=== PATIENT | female | born 1945 | race Caucasian/White ===

== ENCOUNTER 2024-10-28 10:01 | Inpatient (IN) | payer MEDICARE, OTHER, SELFPAY ==
[2024-10-28] VITALS (106 sets, daily range): BP systolic 130–182; BP diastolic 64–117; PULSE 88–127; RESP 14–16; TEMP 36.5–38; O2SAT 72–100; BMI 31.3; BMI 33.4
--- NOTE | 2024-10-28 10:03 | ED_ITS ---
HPI HPI - General Adult General Chief complaint: Shortness of Breath/Dyspnea Stated complaint: SOB COPD Time Seen by Provider: 10/28/24 10:02 History of Present Illness HPI narrative: 79-year-old female presents to the emergency department for difficulty breathin g. For 3 days she has had shortness of breath and has been coughing up some yellow phlegm. She states she has not had a fever. She was placed on CPAP by the paramedics and given 2 aerosol treatments en route. Related Data Allergies Allergy/AdvReac Type Severity Reaction Status Date / Time No Known Drug Allergies Allergy Verified 10/28/24 10:03 Opioid HPI Opioid Management Most Recent Opioid Data: No Data to Display Review of Systems ROS Narrative A ten point review of systems is negative except as noted above. [facility] Medical History (Updated 10/28/24 @ 12:43 by Tristen Coles MD) Chronic obstructive pulmonary disease ?J44.9 - Chronic obstructive pulmonary disease, unspecified (ICD-10) Exam Narrative Exam Narrative: Nurses note and vital signs reviewed and patient is not hypoxic. General: The patient appears dyspneic. Skin: Warm, dry, no pallor noted. There is no rash noted. Head: Normocephalic, atraumatic Eye: Normal conjunctiva, no drainage Ears, Nose, Mouth, and Throat: oral mucosa is moist. Nares patent. Cardiovascular: Regular Rate and Rhythm Respiratory: Bilateral rhonchi present but good air movement is present as well Back: non-tender GI: Soft and nontender Musculoskeletal: The patient has no evidence of calf tenderness, no pitting edema, symmetrical pulses noted bilaterally Neurological: A&O, normal speech Psychiatric: Cooperative Constitutional Vital Signs, click to edit/add: Last Vital Signs Temp 97.7 F 10/28/24 10:00 Pulse 110 H 10/28/24 12:11 Resp 26 H 10/28/24 12:11 BP 130/80 10/28/24 12:11 Pulse Ox 72 L 10/28/24 12:11 O2 Del Method Nasal Cannula 10/28/24 10:00 O2 Flow Rate 4 10/28/24 10:00 Course Vital Signs Vital signs: Vital Signs Temperature 97.7 F 10/28/24 10:00 Pulse Rate 116 H 10/28/24 10:00 Respiratory Rate 28 H 10/28/24 10:00 Blood Pressure 182/89 H 10/28/24 10:00 Pulse Oximetry 77 L 10/28/24 10:00 Oxygen Delivery Method Nasal Cannula 10/28/24 10:00 Oxygen Delivery Flow Rate 4 10/28/24 10:00 Temperature 97.7 F 10/28/24 10:00 Pulse Rate 110 H 10/28/24 12:11 Respiratory Rate 26 H 10/28/24 12:11 Blood Pressure 130/80 10/28/24 12:11 Pulse Oximetry 72 L 10/28/24 12:11 Oxygen Delivery Method Nasal Cannula 10/28/24 10:00 Oxygen Delivery Flow Rate 4 10/28/24 10:00 Medical Decision Making MDM Narrative Medical decision making narrative: The patient presented with COPD exacerbation. She was given IV Solu-Medrol and multiple aerosol treatments and has been on BiPAP. We made an attempt to take her off of BiPAP but her O2 sats dropped and so she was put back on the BiPAP. Blood cultures were obtained and she was given IV antibiotics. Chest x-ray is also consistent with CHF but her BNP is not elevated. She was given IV Lasix and is being admitted to the ICU. Findings are discussed with the patient and her family. The patient and her family are both requesting no intubation but appeared to want everything else done for her. Differential Diagnosis Differential Diagnosis: Pneumonia, COVID, influenza, CHF, COPD exacerbation Lab Data Lab results reviewed: Yes I reviewed the patient's lab results Labs: Lab Results 10/28/24 10/28/24 Range/Units 10:10 10:18 WBC 13.0 H (4.0-11.0) 10^3/uL RBC 3.25 L (4.20-5.40) 10^6/uL Hgb 9.9 L (12.0-16.0) g/dL Hct 33.1 L (36.0-48.0) % MCV 101.8 H (81.0-99.0) fL MCH 30.5 (26.7-34.0) pg MCHC 29.9 (29.9-35.2) g/dL RDW 14.0 (11.0-15.0) % Plt Count 239 (150-450) 10^3/uL MPV 9.1 L (9.5-13.5) fL Seg Neuts % (Manual) 84.0 H (43.0-75.0) Lymphocytes % (Manual) 8.0 L (20.5-60.0) % Monocytes % (Manual) 8.0 (1.7-12.0) % Eosinophils % (Manual) 0.0 L (0.9-7.0) % Basophils % (Manual) 0.0 L (0.2-2.0) % Neutrophils # (Manual) 10.92 H (1.4-6.5) 10^3/uL Lymphocytes # (Manual) 1.04 L (1.20-3.80) 10^3/uL Monocytes # (Manual) 1.04 H (0.30-0.80) 10^3/uL Eosinophils # (Manual) 0.00 (0.00-0.70) 10^3/uL Basophils # (Manual) 0.00 (0.00-0.10) 10^3/uL Sodium 146 H (136-145) mmol/L Potassium 3.8 (3.5-5.1) mmol/L Chloride 100 (98-107) mmol/L Carbon Dioxide 44.6 H (21.0-32.0) mmol/L Anion Gap 5.2 BUN 20.0 H (7.0-18.0) mg/dL Creatinine 0.89 (0.55-1.02) mg/dL Est GFR ( Amer) >60 (>=60 mL/min/1.73m^2) Est GFR (Non-Af Amer) >60 (>=60 mL/min/1.73m^2) BUN/Creatinine Ratio 22.5 Glucose 132 H (74-106) mg/dL Calcium 9.4 (8.5-10.1) mg/dL Troponin I High Sens 27.3 (4.0-51.3) pg/mL NT-Pro-B Natriuret Pep 425.0 (<=1800.0) pg/mL Influenza Type A Ag Negative Influenza Type B Ag Negative SARS-CoV-2 Ag (CV2AG) Positive A (NEGATIVE) Imaging Data Chest x-ray: Radiologist's impression: ITS Impressions Chest X-Ray 10/28/24 10:03 IMPRESSION: Pulmonary vascular congestion/pulmonary edema. Consider congestive heart failure Electronically authenticated by: HESHAM HALE Date: 10/28/2024 10:25 ECG Data Attestation: I personally reviewed and interpreted this ECG as follows: (EKG on my interpretation shows sinus rhythm with PACs.) Critical Care Time Critical Care Time Critical Care Time: Yes Total Critical Care Time: 45 Attestation: Due to the high probability of sudden and clinically significant deterioration in the patient's condition he/she required the highest level of my preparedness to intervene urgently I provided critical care time including documentation time, medication orders and management, reevaluation, vital sign assessment, ordering and reviewing of lab tests, ordering and reviewing of x-ray studies, and admission orders. Aggregate critical care time is 45 minutes including only time during which I was engaged in work directly related to his/her care and did not include time spent treating other patients simultaneously. Discharge Plan Discharge Chief Complaint: Shortness of Breath/Dyspnea Clinical Impression: Acute exacerbation of chronic obstructive pulmonary disease, Congestive heart failure, COVID-19 Patient Disposition: Admitted As Inpatient Time of Disposition Decision: 12:42 Condition: Fair
--- NOTE | 2024-10-28 10:03 | XR_ITS ---
The [address] [address] Patient Name: SUZETTE GUSTAFSON MRN: [id number] date: 1945 Sex: F Assigned Patient Location: ED.MAIN Current Patient Location: ER Accession/Order Number: [id number] Exam Date: 10/28/2024 10:15 Report Date: 10/28/2024 10:25 At the request of: SHAHRZAD WATTS Procedure: XR chest 1V EXAMINATION: XR chest 1V HISTORY: SOB COMPARISON: No relevant comparison available. TECHNIQUE: AP portable FINDINGS: LUNGS: Mild patchy parenchymal infiltrates with a central and bibasilar predominance, left greater than right VASCULATURE: Moderately increased pulmonary vascularity PLEURA: No pneumothorax, effusion, or pleural thickening. CARDIAC: No cardiomegaly or cardiac silhouette abnormality. MEDIASTINUM: No visible mass or adenopathy. BONES: No fracture or visible bone lesion. OTHER: Negative. XR/XR chest 1V IMPRESSION: Pulmonary vascular congestion/pulmonary edema. Consider congestive heart failure Electronically authenticated by: HESHAM HALE Date: 10/28/2024 10:25
--- NOTE | 2024-10-28 10:03 | ECG_ITS ---
[facility] Test Date: 2024-10-28 Pat Name: Stefany Rivas Department: Room: - Gender: Female Soaker Hides: : 1945 Requested By: ROCHELLE BROOKE Order Number: [id number] Reading MD: EFRAÍN STEVENS Measurements Intervals [place] Rate: 111 P: 80 PA: 146 QRS: -38 QRSD: 94 T: 80 QT: 336 QTc: 402 Interpretive Statements 1120 Sinus tachycardia 1474 with frequent supraventricular premature complexes 7200 Abnormal left axis deviation 9140 abnormal rhythm ECG No previous ECG available for comparison Electronically Signed On 10-30-2024 8:17:49 EST by EFRAÍN STEVENS
[2024-10-28 10:30] LABS: Hematocrit 33.1 % (36.0-48.0); Hemoglobin 9.9 g/dL (12.0-16.0); Mean Corpuscular HGB Conc 29.9 g/dL (29.9-35.2); Mean Corpuscular Hemoglobin 30.5 pg (26.7-34.0); Mean Corpuscular Volume 101.8 fL (81.0-99.0); Mean Platelet Volume 9.1 fL (9.5-13.5); Platelet Count 239 10^3/uL (150-450); Red Blood Count 3.25 10^6/uL (4.20-5.40)
[2024-10-28 10:46] LABS: Influenza Virus A Antigen Negative; Influenza Virus B Antigen Negative; Internal Control Within Normal Limits; SARS-CoV-2 Ag POSITIVE (NEGATIVE)
[2024-10-28 11:05] LABS: Segmented Neut Absolute Manual 10.92 10^3/uL (1.4-6.5)
[2024-10-28 11:06] LABS: Lymphocytes Absolute Manual 1.04 10^3/uL (1.20-3.80); Monocytes Absolute Manual 1.04 10^3/uL (0.30-0.80)
[2024-10-28] MEDS: FUROSEMIDE 40 MG/4 ML VIAL IVP (11:14)
[2024-10-28 11:51] LABS: Anion Gap 5.2; BUN Creatinine Ratio 22.5; Calcium 9.4 mg/dL (8.5-10.1); Carbon Dioxide 44.6 mmol/L (21.0-32.0); Chloride 100 mmol/L (98-107); Estimated GFR (African America >60 (>=60 mL/min/1.73m^2); Estimated GFR (Non-African Ame >60 (>=60 mL/min/1.73m^2); Glucose 132 mg/dL (74-106); Potassium 3.8 mmol/L (3.5-5.1); Sodium 146 mmol/L (136-145); Troponin I High Sensitivity 27.3 pg/mL (4.0-51.3)
[2024-10-28] MEDS: METHYLPREDNISOLONE SOD SUCC PF 125 MG/2 ML VIAL IVP (12:32)
--- NOTE | 2024-10-28 12:45 | CT_ITS ---
[address] [address] Patient Name: SUZETTE GUSTAFSON MRN: [id number] date: 1945 Sex: F Assigned Patient Location: ICU Current Patient Location: ICU Accession/Order Number: [id number] Exam Date: 10/28/2024 15:15 Report Date: 10/28/2024 16:12 At the request of: GROVER OVERTON Procedure: CT angio chest CTA CHEST. CLINICAL HISTORY: Acute hypoxia COMPARISON: None available. TECHNIQUE: CT pulmonary angiogram. Initially, limited axial non-contrast images through chest obtained to establish proper bolus timing. Subsequently, contrast enhanced axial CT images were obtained through the chest. Axial, sagittal and coronal reformatted maximum intensity projection images and / or 3D volume rendered images created. FINDINGS: Somewhat limited evaluation due to motion artifact. PULMONARY ARTERIES: No intraluminal filling defects within the central or segmental pulmonary arteries to suggest pulmonary embolism.. Normal RV:LV ratio (<1). AORTA: The thoracic aorta diameter is normal without aneurysm or dissection. LUNGS: There is a 6 mm subpleural nodule in the left lower lobe. No airspace disease. No pleural effusions.. No pneumothorax. LYMPH NODES: No enlarged mediastinal lymph nodes by CT criteria. HEART: Heart size is normal. No pericardial effusion. Coronary artery calcification. UPPER ABDOMEN: Images of the upper abdomen demonstrate no abnormality. MUSCULOSKELETAL: No acute osseous abnormality. CT/CT angio chest IMPRESSION: 1. No pulmonary embolism. 2. No aortic aneurysm or dissection. 3. No pulmonary airspace disease. 4. Mild centrilobular emphysema. 5. Left lower lobe 6 mm nodule. Refer to recommendations below. Incidental single solid nodule 6-8 mm: *In a low risk patient, recommend noncontrast chest CT in 6-12 months, then consider additional CT at 18-24 months. *In a high-risk patient, recommend noncontrast chest CT at 6-12 months, then another noncontrast chest CT at 18-24 months. Electronically authenticated by: KANIKA MIRELES Date: 10/28/2024 16:12
--- NOTE | 2024-10-28 12:45 | P.HP_ITS ---
HPI H&P: HPI History of Present Illness Chief complaint: SOB, COPD EXACERBATION, CHF, COVID(+) Narrative: Patient presented to the emergency room with increasing cough and shortness of breath, found to have acute COVID-19 requiring BiPAP ventilation. Patient was transferred up to the intensive care unit, by the time I saw the patient she was improved with pretty aggressive treatment throughout the day today. Opioid HPI Opioid Management Most Recent Pain and Opioid Data: Last Pain Assessment 10/28/24 17:54 Last ORT Total Score 0 10/28/24 13:46 10/28/24 Last ORT Risk Category Low Risk 10/28/24 13:46 10/28/24 PFSH PFS Medical History (Updated 10/28/24 @ 12:43 by Tristen Coles MD) Chronic obstructive pulmonary disease ?J44.9 - Chronic obstructive pulmonary disease, unspecified (ICD-10) Social History Highest level of school completed/degree received: high school graduate Little interest or pleasure in doing things: not at all Feeling down, depressed, or hopeless: not at all Meds Home Medications and Allergies Home Medications ?Medication ?Instructions ?Recorded ?Confirmed ?Type albuterol sulfate 90 mcg/actuation 2 puff inhalation Q6H PRN 10/28/24 10/28/24 History aerosol inhaler shortness of breath or wheezing lisinopril 20 1 tab PO DAILY 10/28/24 10/28/24 History mg-hydrochlorothiazide 25 mg tablet tiotropium 2.5 mcg-olodaterol 2.5 2 puff inhalation Q24H 10/28/24 10/28/24 History mcg/actuation mist for inhalation (Stiolto Respimat) Allergies Allergy/AdvReac Type Severity Reaction Status Date / Time No Known Drug Allergies Allergy Verified 10/28/24 10:03 Exam Constitutional Vital Signs, click to edit/add: Last Vital Signs Temp 97.7 F 10/28/24 10:00 Pulse 110 H 10/28/24 12:11 Resp 26 H 10/28/24 12:11 BP 130/80 10/28/24 12:11 Pulse Ox 72 L 10/28/24 12:11 O2 Del Method Nasal Cannula 10/28/24 10:00 O2 Flow Rate 4 10/28/24 10:00 Documenting provider has reviewed patient's vital signs: yes Common normals: apparent distress (Mild respiratory distress, per staff much improved) Chest Common normals: inspection of chest normal Respiratory Common normals: abnormal respiratory effort (Mild respiratory distress) Effort & inspection: tachypneic Auscultation: rhonchi (Very faint due to minimal air movement), wheezes (Very faint due to minimal air movement) and breath sounds absent Results Labs Labs: Short CBC 10/28/24 Range/Units 10:10 WBC 13.0 H (4.0-11.0) 10^3/uL Hgb 9.9 L (12.0-16.0) g/dL Hct 33.1 L (36.0-48.0) % Plt Count 239 (150-450) 10^3/uL BMP 10/28/24 10:10 Sodium 146 H Potassium 3.8 Chloride 100 Carbon Dioxide 44.6 H BUN 20.0 H Creatinine 0.89 Glucose 132 H Calcium 9.4 Assessment and Plan Assessment and Plan (1) COVID-19: (2) Congestive heart failure: (3) Acute exacerbation of chronic obstructive pulmonary disease: (4) Chronic obstructive pulmonary disease: Plan Admission findings: Sinus tachycardia, respiratory distress, uncontro lled hypertension, acute hypoxia respiratory failure requiring BiPAP ventilation with O2 sat of 72% on room air, leukocytosis, hypernatremia, elevated CO2 secondary to acute exacerbation of chronic hypoxic respiratory failure COPD and fluid retention secondary to COVID-19 resulting in sepsis. Acute sepsis secondary to acute COVID-19 pneumonia as outlined above-remdesivir, steroids, inhalers. Acute exacerbation of chronic hypoxic respiratory failure COPD-watch for CO2 retention, so far tolerating well, able to be weaned off of the BiPAP after diuresis and IV steroids. Leukocytosis with left shift consistent with bacterial process complicating the above picture, bronchitis versus pneumonia, difficult to tell based on CT findings and COVID-19 fluid retention-IV antibiotics Acute COVID-19 causing all of the above-remdesivir as outlined above Hypernatremia which may be related to mild dehydration-tend to keep people on the dry side with COVID-19 so we will not give further fluid resuscitation Hypertension-continue with home medications Admission status: Patient with acute hypoxic respiratory failure due to COVID causing acute exacerbation of oxygen dependent chronic hypoxic respiratory failure COPD, medically necessary treatment will span 2 midnights. Inpatient status
[2024-10-28] MEDS: ALBUTEROL SULFATE 2.5 MG/3 ML VIAL NEB IH (12:48)
[2024-10-28] MEDS: LEVOFLOXACIN IN DEXTROSE 5 % 750 MG/150 ML PREMIX 100 MG IV (13:08)
[2024-10-28 13:16] LABS: Lactate/Lactic Acid 0.8 mmol/L (0.4-2.0)
[2024-10-28 14:04] LABS: pH ABG 7.307 (7.350-7.450)
[2024-10-28 14:05] LABS: Oxygen Saturation ABG 98.9 %
[2024-10-28 14:06] LABS: Allen Test POSITIVE (POSITIVE); Liters per Minute 6; O2 Mode NC; Puncture Site LR
[2024-10-28 14:08] LABS: ABG PCO2 >98.3 mmHg (35.0-45.0)
[2024-10-28] MEDS: PIPERACILLIN SODIUM/TAZOBACTAM 3.375 GM in 0.9 % SODIUM CHLORIDE 50 ML IV ×2 (14:46→21:11)
--- NOTE | 2024-10-28 15:21 | CM.NOTE ---
Case Management in to see pt, pt being transported down for CT scan.
[2024-10-28 16:36] LABS: Glucometer 137 mg/dL (74-106)
[2024-10-28 16:40] LABS: Allen Test POS (POSITIVE); BIPAP Pressure 16/8; Base Excess ABG 25.6 mmol/L (-2.0-2.0); Fractionated Inspired Oxygen 40 %; O2 Mode BIPAP; Oxygen Saturation ABG 97.1 %; PO2 ABG 81.6 mmHg (80.0-100.0); Puncture Site LEFT RADIAL; Rate 16; pH ABG 7.364 (7.350-7.450)
[2024-10-28 16:41] LABS: ABG PCO2 89.4 mmHg (35.0-45.0)
[2024-10-28] MEDS: ALBUTEROL SULFATE 200 PUFF/6.7 GM INHALER IH ×2 (16:42→22:28)
[2024-10-28 16:56] LABS: Bilirubin Urine NEGATIVE (NEGATIVE); Blood Urine NEGATIVE (NEGATIVE); Clarity Urine CLEAR (CLEAR); Color Urine LT. YELLOW (YELLOW); Glucose Urine UA NEGATIVE (NEGATIVE); Ketones Urine NEGATIVE (NEGATIVE); Leukocyte Esterase Urine NEGATIVE (NEGATIVE); Nitrite Urine NEGATIVE (NEGATIVE); Protein Urine NEGATIVE (NEG/TRACE); Specific Gravity Urine 1.015 (1.005-1.025); Urobilinogen Urine 0.2 EU/dL (0.2-1.0)
[2024-10-28] MEDS: FAMOTIDINE/PF 20 MG/2 ML VIAL 40 MG IV (17:04)
[2024-10-28] MEDS: ENOXAPARIN SODIUM 80 MG/0.8 ML SYRINGE SUBQ (17:05)
[2024-10-28 17:10] LABS: Bacteria Urine NONE SEEN #/HPF (NONE SEEN); Cast Seen? NONE SEEN #/LPF (NONE SEEN); Crystals Seen? None Seen #/HPF (None Seen); Mucus Urine NONE SEEN (NONE SEEN); RBC Urine NONE SEEN #/HPF (0-2); Squamous Epithelial Cell Urine RARE #/LPF (NONE/RARE); Urine Culture Indicated NO; WBC Urine NONE SEEN #/HPF (NONE SEEN)
[2024-10-28 21:04] LABS: Glucometer 140 mg/dL (74-106)
[2024-10-28] MEDS: BENZONATATE 100 MG CAPSULE 200 MG PO (21:11)
[2024-10-28] MEDS: CETIRIZINE HCL 10 MG TABLET 20 MG PO (21:12)
[2024-10-29] VITALS (46 sets, daily range): BP systolic 122–151; BP diastolic 64–83; PULSE 50–101; TEMP 36.7–37.5; O2SAT 67–99
[2024-10-29] MEDS: ALBUTEROL SULFATE 200 PUFF/6.7 GM INHALER IH ×4 (04:59→23:28)
[2024-10-29] MEDS: FAMOTIDINE/PF 20 MG/2 ML VIAL 40 MG IV ×2 (05:11→17:15)
[2024-10-29] MEDS: PIPERACILLIN SODIUM/TAZOBACTAM 3.375 GM in 0.9 % SODIUM CHLORIDE 50 ML IV ×3 (05:11→21:16)
[2024-10-29] MEDS: BENZONATATE 100 MG CAPSULE 200 MG PO ×3 (05:13→21:16)
[2024-10-29 05:39] LABS: pH VBG 7.385 (7.330-7.430)
[2024-10-29 05:41] LABS: Basophils Percent Auto 0.1 % (0.2-2.0); Hematocrit 33.8 % (36.0-48.0); Immature Granulocytes Abs Auto 0.12 10^3/uL (0.00-0.03); Immature Granulocytes Pct Auto 1.2 % (0.0-0.5); Lymphocytes Absolute Auto 0.4 10^3/uL (1.2-3.8); Lymphocytes Percent Auto 4.4 % (20.5-60.0); Mean Corpuscular HGB Conc 29.6 g/dL (29.9-35.2); Mean Corpuscular Hemoglobin 29.5 pg (26.7-34.0); Mean Corpuscular Volume 99.7 fL (81.0-99.0); Mean Platelet Volume 9.3 fL (9.5-13.5); Monocytes Absolute Auto 0.7 10^3/uL (0.3-0.8); Monocytes Percent Auto 7.1 % (1.7-12.0); Neutrophils Absolute Auto 8.4 10^3/uL (1.4-6.5); Neutrophils Percent Auto 87.2 % (43.0-75.0); Platelet Count 246 10^3/uL (150-450); Red Blood Count 3.39 10^6/uL (4.20-5.40); Red Cell Distribution Width 13.9 % (11.0-15.0); White Blood Count 9.6 10^3/uL (4.0-11.0)
[2024-10-29 05:42] LABS: PCO2 VBG 85.6 mmHg (40.0-52.0)
[2024-10-29 06:10] LABS: A. calcoaceticus-baumannii Cpx NOT DETECTED (NOT DETECTE); Bacteroides fragilis NOT DETECTED (NOT DETECTE); Candida albicans NOT DETECTED (NOT DETECTE); Candida auris NOT DETECTED (NOT DETECTE); Candida glabrata NOT DETECTED (NOT DETECTE); Candida krusei NOT DETECTED (NOT DETECTE); Candida parapsilosis NOT DETECTED (NOT DETECTE); Candida tropicalis NOT DETECTED (NOT DETECTE); Cryptococcus neoformans/gattii NOT DETECTED (NOT DETECTE); Enterobacter cloacae complex NOT DETECTED (NOT DETECTE); Enterobacterales NOT DETECTED (NOT DETECTE); Enterococcus faecalis NOT DETECTED (NOT DETECTE); Enterococcus faecium NOT DETECTED (NOT DETECTE); Haemophilus influenzae NOT DETECTED (NOT DETECTE); Klebsiella aerogenes NOT DETECTED (NOT DETECTE); Klebsiella pneumoniae group NOT DETECTED (NOT DETECTE); Listeria monocytogenes NOT DETECTED (NOT DETECTE); Neisseria meningitidis NOT DETECTED (NOT DETECTE); Proteus spp. NOT DETECTED (NOT DETECTE); Pseudomonas aeruginosa NOT DETECTED (NOT DETECTE); Salmonella spp. NOT DETECTED (NOT DETECTE); Serratia marcescens NOT DETECTED (NOT DETECTE); Staphylococcus epidermidis NOT DETECTED (NOT DETECTE); Staphylococcus lugdunensis NOT DETECTED (NOT DETECTE); Stenotrophomonas maltophilia NOT DETECTED (NOT DETECTE); Streptococcus agalactiae NOT DETECTED (NOT DETECTE); Streptococcus pneumoniae NOT DETECTED (NOT DETECTE); Streptococcus pyogenes NOT DETECTED (NOT DETECTE); Streptococcus spp. NOT DETECTED (NOT DETECTE)
[2024-10-29 06:14] LABS: Alanine Aminotransferase 17 U/L (14-59); Albumin Globulin Ratio 0.6; Albumin Level 2.8 g/dL (3.4-5.0); Alkaline Phosphatase 70 U/L (46-116); Anion Gap 3.7; Aspartate Amino Transferase 16 U/L (15-37); BUN Creatinine Ratio 20.8; Bilirubin Total 0.2 mg/dL (0.2-1.0); Calcium 9.4 mg/dL (8.5-10.1); Carbon Dioxide 49.3 mmol/L (21.0-32.0); Chloride 98 mmol/L (98-107); Estimated GFR (African America >60 (>=60 mL/min/1.73m^2); Estimated GFR (Non-African Ame 53 (>=60 mL/min/1.73m^2); Globulin 4.8 g/dL; Glucose 134 mg/dL (74-106); Sodium 147 mmol/L (136-145); Total Protein 7.6 g/dL (6.4-8.2); Troponin I High Sensitivity 18.8 pg/mL (4.0-51.3)
[2024-10-29 06:29] LABS: Alanine Aminotransferase 15 U/L (14-59); Albumin Globulin Ratio 0.6; Albumin Level 2.9 g/dL (3.4-5.0); Alkaline Phosphatase 68 U/L (46-116); Aspartate Amino Transferase 17 U/L (15-37); Bilirubin Direct 0.1 mg/dL (0.0-0.2); Bilirubin Total 0.2 mg/dL (0.2-1.0); Globulin 4.7 g/dL; Total Protein 7.6 g/dL (6.4-8.2)
[2024-10-29 07:37] LABS: Source Blood
[2024-10-29 07:39] LABS: Staphylococcus spp. DETECTED (NOT DETECTE)
[2024-10-29 07:58] LABS: BOX Test Reference Lab FIRELANDS; BOX Test Sent Out BLOOD CULTURE
[2024-10-29 07:59] LABS: BOX Test Reference Lab FIRELANDS; BOX Test Sent Out BLOOD CULTURE
[2024-10-29] MEDS: DEXAMETHASONE SOD PHOS 10 MG/ML VIAL IV (08:13)
[2024-10-29] MEDS: ENSURE HP 237 ML LIQUID PO ×2 (08:13→21:16)
[2024-10-29] MEDS: HYDROCHLOROTHIAZIDE 25 MG TABLET PO (08:13)
[2024-10-29] MEDS: LISINOPRIL 20 MG TABLET PO (08:13)
--- NOTE | 2024-10-29 08:55 | CM.NOTE ---
Rounds made with Dr. Mckeon. Dr. Mckeon discussed labs, treatment plan & need to increase activity, PT/OT ordered to eval for needs. Stefany verbalized understanding. Stefany normally wears home O2 @ 3-4 L. No discharge today.
[2024-10-29] MEDS: FLUTICASONE PROPIONATE HFA 110 MCG INHALER 120 PUFF/12 GM IH ×2 (10:14→23:28)
--- NOTE | 2024-10-29 10:25 | P.PN_ITS ---
Progress Note: Subjective Subjective Interval history: Patient breathing much better this morning. Sitting up in a chair, nasal cannula oxygen still on and she does still have significant dyspnea with activity. Exam Constitutional Vital Signs, click to edit/add: Last Vital Signs Temp 99.5 F 10/29/24 08:00 Pulse 98 H 10/29/24 10:00 Resp 22 H 10/29/24 08:00 BP 142/64 H 10/29/24 08:00 Pulse Ox 90 L 10/29/24 10:00 O2 Del Method Nasal Cannula 10/29/24 05:00 O2 Flow Rate 4 10/29/24 08:00 FiO2 35 10/28/24 23:50 Documenting provider has reviewed patient's vital signs: yes Common normals: apparent distress (Mild respiratory distress, per staff much improved) Chest Common normals: inspection of chest normal Respiratory Common normals: abnormal respiratory effort (Minimal respiratory distress) Effort & inspection: tachypneic Auscultation: rhonchi (Very faint due to minimal air movement), wheezes (Persisting) and breath sounds absent (Some better air exchange) Progress Note: Objective Labs Labs: Short CBC 10/28/24 10/29/24 Range/Units 10:10 05:09 WBC 13.0 H 9.6 (4.0-11.0) 10^3/uL Hgb 9.9 L 10.0 L (12.0-16.0) g/dL Hct 33.1 L 33.8 L (36.0-48.0) % Plt Count 239 246 (150-450) 10^3/uL BMP 10/28/24 10/29/24 10:10 05:09 Sodium 146 H 147 H Potassium 3.8 4.0 Chloride 100 98 Carbon Dioxide 44.6 H 49.3 H BUN 20.0 H 21.0 H Creatinine 0.89 1.01 Glucose 132 H 134 H Calcium 9.4 9.4 Liver Function 10/29/24 10/29/24 10/29/24 Range/Units 05:09 05:09 05:09 Total Bilirubin 0.2 0.2 (0.2-1.0) mg/dL Direct Bilirubin 0.1 (0.0-0.2) mg/dL AST 16 17 (15-37) U/L ALT 17 (14-59) U/L Alkaline Phosphatase (46-116) U/L Albumin (3.4-5.0) g/dL 10/29/24 10/29/24 10/29/24 Range/Units 05:09 05:09 05:09 Total Bilirubin (0.2-1.0) mg/dL Direct Bilirubin (0.0-0.2) mg/dL AST (15-37) U/L ALT 15 (14-59) U/L Alkaline Phosphatase 70 68 (46-116) U/L Albumin 2.8 L 2.9 L (3.4-5.0) g/dL Urine 10/28/24 Range/Units 16:25 Urine Color Lt. yellow (YELLOW) Urine Clarity Clear (CLEAR) Urine pH 8.0 (5.0-9.0) Ur Specific [place] 1.015 (1.005-1.025) Urine Protein Negative (NEG/TRACE) mg/dL Urine Glucose (UA) Negative (NEGATIVE) mg/dL Progress Note: A&P Assessment and Plan (1) COVID-19: (2) Congestive heart failure: (3) Acute exacerbation of chronic obstructive pulmonary disease: (4) Chronic obstructive pulmonary disease: Plan Admission findings: Sinus tachycardia, respiratory distress, uncontrolled hypertension, acute hypoxia respiratory failure requiring BiPAP ventilation with O2 sat of 72% on room air, leukocytosis, hypernatremia, elevated CO2 secondary to acute exacerbation of chronic hypoxic respiratory failure COPD and fluid retention secondary to COVID-19 resulting in sepsis. Acute sepsis secondary to acute COVID-19 pneumonia as outlined above-remdesivir, steroids, inhalers.-Overall improving, will maintain current treatment plan Acute exacerbation of chronic hypoxic respiratory failure COPD-watch for CO2 retention, so far tolerating well, able to be weaned off of the BiPAP after diuresis and IV steroids.-Continue with plan as outlined above Leukocytosis with left shift consistent with bacterial process complicating the above picture, bronchitis versus pneumonia, difficult to tell based on CT findings and COVID-19 fluid retention-IV antibiotics Acute COVID-19 causing all of the above-remdesivir as outlined above Hypernatremia which may be related to mild dehydration-tend to keep people on the dry side with COVID-19 so we will not give further fluid resuscitation- continue to follow Hypertension-continue with home medications Moderate protein calorie malnutrition-diet supplement Admission status: Patient with acute hypoxic respiratory failure due to COVID causing acute exacerbation of oxygen dependent chronic hypoxic respiratory failure COPD, medically necessary treatment will span 2 midnights. Inpatient status Urinary Catheter Management Urinary Catheter Management Urethral: Cath placed during this visit: yes Urethral indwelling: Yes Reason for continuing: acute urinary retention Insertion date: 10/28/24 Insertion time: 14:11
[2024-10-29 11:10] LABS: Glucometer 147 mg/dL (74-106)
--- NOTE | 2024-10-29 11:22 | SWNOTE1 ---
DAVIE met with pt to discuss dc needs. Pt lives at home with her . Pt does have an inogen for home oxygen and wears 3-4 liters. Pt does have a cane at home but usually is independent. DAVIE advised pt that PT HH is recommended. Pt is agreeable. Pt reviewed list from medicare.gov with star ratings and she would like to use whoever is in network with her insurance. At this time no further needs. Referral sent to [address] Referral included face sheet, ED note, H&P, provider notes, case management report, and PT/OT notes.
--- NOTE | 2024-10-29 11:24 | SWNOTE1 ---
Important Message from Medicare reviewed and discussed with patient. Pt. verbalized understanding and signed the form. Original given to patient and copy placed in patient?s chart.
--- NOTE | 2024-10-29 13:26 | SWNOTE1 ---
SW received call from [address] and they are able to accept pt. They will start care on Friday or Friday. SW let pt know and she is in agreement with the plan. DAVIE sent over CRF to [address]
[2024-10-29 16:13] LABS: Glucometer 258 mg/dL (74-106)
[2024-10-29] MEDS: INSULIN ASPART 300 UNIT/3 ML PEN SUBQ (17:13)
[2024-10-29] MEDS: CETIRIZINE HCL 10 MG TABLET 20 MG PO (21:16)
[2024-10-29 21:21] LABS: Glucometer 123 mg/dL (74-106)
[2024-10-30] VITALS (21 sets, daily range): BP systolic 111–148; BP diastolic 60–78; PULSE 80–107; TEMP 36.4–36.7; O2SAT 87–96
[2024-10-30] MEDS: ALBUTEROL SULFATE 200 PUFF/6.7 GM INHALER IH ×4 (04:47→23:42)
[2024-10-30] MEDS: PIPERACILLIN SODIUM/TAZOBACTAM 3.375 GM in 0.9 % SODIUM CHLORIDE 50 ML IV (05:37)
[2024-10-30] MEDS: FAMOTIDINE/PF 20 MG/2 ML VIAL 40 MG IV (05:38)
[2024-10-30] MEDS: BENZONATATE 100 MG CAPSULE 200 MG PO ×3 (05:38→21:51)
[2024-10-30 06:57] LABS: Basophils Percent Auto 0.1 % (0.2-2.0); Hematocrit 30.4 % (36.0-48.0); Hemoglobin 8.9 g/dL (12.0-16.0); Immature Granulocytes Abs Auto 0.12 10^3/uL (0.00-0.03); Immature Granulocytes Pct Auto 1.1 % (0.0-0.5); Lymphocytes Absolute Auto 0.8 10^3/uL (1.2-3.8); Lymphocytes Percent Auto 7.5 % (20.5-60.0); Mean Corpuscular HGB Conc 29.3 g/dL (29.9-35.2); Mean Corpuscular Hemoglobin 29.3 pg (26.7-34.0); Mean Platelet Volume 9.1 fL (9.5-13.5); Monocytes Absolute Auto 1.1 10^3/uL (0.3-0.8); Monocytes Percent Auto 10.1 % (1.7-12.0); Neutrophils Absolute Auto 8.9 10^3/uL (1.4-6.5); Neutrophils Percent Auto 81.2 % (43.0-75.0); Platelet Count 250 10^3/uL (150-450); Red Blood Count 3.04 10^6/uL (4.20-5.40)
[2024-10-30 07:31] LABS: Alanine Aminotransferase 17 U/L (14-59); Albumin Globulin Ratio 0.7; Albumin Level 2.8 g/dL (3.4-5.0); Alkaline Phosphatase 57 U/L (46-116); Anion Gap 2.8; Aspartate Amino Transferase 19 U/L (15-37); BUN Creatinine Ratio 28.7; Bilirubin Total 0.2 mg/dL (0.2-1.0); Calcium 9.3 mg/dL (8.5-10.1); Carbon Dioxide 49.9 mmol/L (21.0-32.0); Chloride 100 mmol/L (98-107); Estimated GFR (African America >60 (>=60 mL/min/1.73m^2); Estimated GFR (Non-African Ame 58 (>=60 mL/min/1.73m^2); Glucose 112 mg/dL (74-106); Potassium 3.7 mmol/L (3.5-5.1); Sodium 149 mmol/L (136-145); Total Protein 6.8 g/dL (6.4-8.2); Troponin I High Sensitivity 17.9 pg/mL (4.0-51.3)
[2024-10-30] MEDS: DEXAMETHASONE SOD PHOS 10 MG/ML VIAL IV (09:58)
[2024-10-30] MEDS: HYDROCHLOROTHIAZIDE 25 MG TABLET PO (09:58)
[2024-10-30] MEDS: LISINOPRIL 20 MG TABLET PO (09:58)
[2024-10-30] MEDS: ENSURE HP 237 ML LIQUID PO ×2 (09:58→21:48)
[2024-10-30] MEDS: LEVOFLOXACIN IN DEXTROSE 5 % 750 MG/150 ML PREMIX 100 MG IV (09:59)
--- NOTE | 2024-10-30 10:22 | PT.DAILY ---
Physical Therapy Daily Note PT Daily Note/Assess Start: 10/30/24 10:09 Freq: Status: Active Protocol: Document 10/30/24 10:10 [id number] (Rec: 10/30/24 10:22 [id number]) Physical Therapy Daily Note/Assessment Time In/Time Out Time In 08:06 Time Out 08:16 Pain In Pain Level 0 Pain Out Pain Level 0 Subjective Subjective Patient received in bed with HOB elevated. Agreeable to participate with PT. Patient on 4L O2 via NC. Therapeutic Exercise Time Therapeutic Exercise 2 Minutes (minutes) Therapeutic Exercise 0 Units Therapeutic Exercise Treatment Therapeutic Exercise Patient performed MALLY ankle pumps, quad/glut sets x 10 Treatment reps to increase muscle strength for gait and ADL's. Therapeutic Activity Time Therapeutic Activity 8 Minutes (minutes) Therapeutic Activity 1 Units Therapeutic Activity Treatment Bed Mobility Ability Contact Guard Assist Chair Transfer Contact Guard Assist Ability Therapeutic Activity Pre treatment O2 level @ 94%. Bed mobility: supine to Comments R semi-side lying to sitting at EOB on R with use of R hand rail. Patient verbalizes slight light headed feeling and required sitting EOB for ~30 seconds. Transfer: sit to stand to [facility] CGA +1. Patient ambulated ~42 feet x 1 with SHANK FAKER. Patient experienced 3 LOB to L during ambulation. Required MIN A +1 x 1 to correct balance and able to self correct x2 by reaching for counter. Patient states she typically walks beside something she can reach to hold onto. Patient seated in chair at bedside, CBWR and nursing notified of patient placement. O2 level post treatment @ 85%, after 1 minute rest O2 level @ 91%. Total Physical Therapy Time Total Therapy 10 Minutes Total Physical 1 Therapy Units Summary Daily Note Summary Patient demonstrates postural instability/balance issues and would benefit from use of assistive device for safety. Patient educated concerning recommendation and states she will consider. Patient would also benefit from PT to address functional deficits in order to return to PLOF.
[2024-10-30] MEDS: FLUTICASONE PROPIONATE HFA 110 MCG INHALER 120 PUFF/12 GM IH ×2 (11:23→23:42)
[2024-10-30 12:31] LABS: Glucometer 136 mg/dL (74-106)
[2024-10-30] MEDS: FAMOTIDINE 20 MG TABLET PO ×2 (12:44→21:48)
[2024-10-30] MEDS: DEXAMETHASONE SOD PHOS 10 MG/ML VIAL 6 MG IV ×2 (14:19→21:55)
[2024-10-30 16:51] LABS: Glucometer 144 mg/dL (74-106)
[2024-10-30] MEDS: INSULIN ASPART 300 UNIT/3 ML PEN SUBQ ×2 (16:57→21:53)
[2024-10-30 21:25] LABS: Glucometer 155 mg/dL (74-106)
--- NOTE | 2024-10-30 21:47 | PM.IMPN1 ---
Progress Note: A&P Assessment and Plan (1) COVID-19: (2) Acute and chronic respiratory failure with hypoxia: (3) Chronic obstructive pulmonary disease: Qualifiers: COPD type: COPD with acute exacerbation Qualified Code(s): J44.1 - Chronic obstructive pulmonary disease with (acute) exacerbation (4) Chronic respiratory failure with hypoxia: (5) HTN (hypertension): Qualifiers: Hypertension type: primary hypertension Qualified Code(s): I10 - Essential (primary) hypertension (6) Lung nodule: (7) Former smoker: Plan Initially required BIPAP, improving clinically and weaned off to 4 L O2 via NC. Still has diminished lung sounds, wheezing and dyspnea at rest. Resp failure sec to COPD exacerbation from COVID -19 infection. On IV Decadron along with albtuerol. Patient also on empirical IV Levaquin for presumed superimposed Bacterial Pneumonia. Discussed CT scan findings and that Lung nodule will need to be followed up as outpatient with periodic CT scans. BP stable. Patient feels overall weak but improving slowly with PT/OT. Needs continued inpatient treatment/monitoring to ensure continued clinical improvement/recovery as high risk of poor prognosis, treatment failure due to her underlying Chronic resp and COPD. Internal Medicine - PN: Subj Subjective Interval history: Seen and examined. No overnight events. Overall feels better but still dyspneic at rest and on exertion. Exam Constitutional Vital Signs, click to edit/add: Last Vital Signs Temp 98.1 F 10/30/24 19:53 Pulse 87 10/30/24 20:00 Resp 20 10/30/24 19:53 BP 147/61 H 10/30/24 19:53 Pulse Ox 92 L 10/30/24 19:53 O2 Del Method Nasal Cannula 10/30/24 19:53 O2 Flow Rate 4 10/30/24 19:53 FiO2 35 10/28/24 23:50 Common normals: oriented x3 General appearance: cooperative and comfortable Nutritional appearance: obese Respiratory Common normals: normal respiratory effort and no use of accessory muscles Effort & inspection: tachypneic Auscultation: wheezes and diminished lung sounds Cardio Common normals: regular rate, regular rhythm, S1 normal heart sound and S2 normal heart sound Extremity Common normals: no clubbing, cyanosis or edema Neuro Common normals: oriented x3, moves all extremities, no focal motor deficits and no sensory deficits noted Psych Common normals: mental status grossly normal, thought process normal, denies homicidal ideation and denies suicidal ideation Internal Medicine - PN: Obj Da Labs Labs: Laboratory Results - last 24 hr 10/30/24 10/30/24 10/30/24 06:32 06:36 12:29 WBC 11.0 RBC 3.04 L Hgb 8.9 L Hct 30.4 L MCV 100.0 H MCH 29.3 MCHC 29.3 L RDW 14.0 Plt Count 250 MPV 9.1 L Neut % (Auto) 81.2 H Lymph % (Auto) 7.5 L [place] % (Auto) 10.1 Eos % (Auto) 0.0 L Baso % (Auto) 0.1 L Neut # (Auto) 8.9 H Lymph # (Auto) 0.8 L [place] # (Auto) 1.1 H Eos # (Auto) 0.0 Baso # (Auto) 0.0 Abs Immat Gran (auto) 0.12 H Imm/Tot Granulo (auto) 1.1 H Sodium 149 H Potassium 3.7 Chloride 100 Carbon Dioxide 49.9 H Anion Gap 2.8 BUN 27.0 H Creatinine 0.94 Est GFR ( Amer) >60 Est GFR (Non-Af Amer) 58 L BUN/Creatinine Ratio 28.7 Glucose 112 H Calcium 9.3 Total Bilirubin 0.2 AST 19 ALT 17 Alkaline Phosphatase 57 Troponin I High Sens 17.9 NT-Pro-B Natriuret Pep 306.0 Total Protein 6.8 Albumin 2.8 L Globulin 4.0 Albumin/Globulin Ratio 0.7 POC Glucose 136 H 10/30/24 10/30/24 16:48 21:24 WBC RBC Hgb Hct MCV MCH MCHC RDW Plt Count MPV Neut % (Auto) Lymph % (Auto) [place] % (Auto) Eos % (Auto) Baso % (Auto) Neut # (Auto) Lymph # (Auto) [place] # (Auto) Eos # (Auto) Baso # (Auto) Abs Immat Gran (auto) Imm/Tot Granulo (auto) Sodium Potassium Chloride Carbon Dioxide Anion Gap BUN Creatinine Est GFR ( Amer) Est GFR (Non-Af Amer) BUN/Creatinine Ratio Glucose Calcium Total Bilirubin AST ALT Alkaline Phosphatase Troponin I High Sens NT-Pro-B Natriuret Pep Total Protein Albumin Globulin Albumin/Globulin Ratio POC Glucose 144 H 155 H Urinary Catheter Management Urinary Catheter Management Urethral: Cath placed during this visit: yes Urethral indwelling: Yes Reason for continuing: measure accurate output Insertion date: 10/28/24 Insertion time: 14:11
[2024-10-30] MEDS: CETIRIZINE HCL 10 MG TABLET 20 MG PO (21:48)
[2024-10-31] VITALS (12 sets, daily range): BP systolic 116–168; BP diastolic 64–69; PULSE 80–101; TEMP 36.7–37.2; O2SAT 91–95
[2024-10-31] MEDS: ALBUTEROL SULFATE 200 PUFF/6.7 GM INHALER IH ×2 (05:20→11:06)
[2024-10-31] MEDS: DEXAMETHASONE SOD PHOS 10 MG/ML VIAL 6 MG IV (05:29)
[2024-10-31] MEDS: BENZONATATE 100 MG CAPSULE 200 MG PO (05:29)
[2024-10-31 06:48] LABS: Basophils Percent Auto 0.2 % (0.2-2.0); Hematocrit 31.9 % (36.0-48.0); Hemoglobin 9.4 g/dL (12.0-16.0); Immature Granulocytes Abs Auto 0.44 10^3/uL (0.00-0.03); Immature Granulocytes Pct Auto 4.7 % (0.0-0.5); Lymphocytes Absolute Auto 0.6 10^3/uL (1.2-3.8); Lymphocytes Percent Auto 6.1 % (20.5-60.0); Mean Corpuscular HGB Conc 29.5 g/dL (29.9-35.2); Mean Corpuscular Hemoglobin 29.5 pg (26.7-34.0); Mean Platelet Volume 9.1 fL (9.5-13.5); Monocytes Absolute Auto 0.6 10^3/uL (0.3-0.8); Monocytes Percent Auto 6.7 % (1.7-12.0); Neutrophils Absolute Auto 7.6 10^3/uL (1.4-6.5); Neutrophils Percent Auto 82.3 % (43.0-75.0); Platelet Count 246 10^3/uL (150-450); Red Blood Count 3.19 10^6/uL (4.20-5.40); Red Cell Distribution Width 13.5 % (11.0-15.0); White Blood Count 9.3 10^3/uL (4.0-11.0)
[2024-10-31 07:12] LABS: Alanine Aminotransferase 15 U/L (14-59); Albumin Globulin Ratio 0.7; Albumin Level 2.8 g/dL (3.4-5.0); Alkaline Phosphatase 55 U/L (46-116); Anion Gap 0.7; Aspartate Amino Transferase 17 U/L (15-37); BUN Creatinine Ratio 34.1; Bilirubin Total 0.2 mg/dL (0.2-1.0); Calcium 9.7 mg/dL (8.5-10.1); Carbon Dioxide 50.5 mmol/L (21.0-32.0); Chloride 100 mmol/L (98-107); Estimated GFR (African America >60 (>=60 mL/min/1.73m^2); Estimated GFR (Non-African Ame 60 (>=60 mL/min/1.73m^2); Glucose 122 mg/dL (74-106); Potassium 4.2 mmol/L (3.5-5.1); Sodium 147 mmol/L (136-145); Total Protein 6.8 g/dL (6.4-8.2)
[2024-10-31] MEDS: FUROSEMIDE 40 MG/4 ML VIAL IVP (09:29)
[2024-10-31] MEDS: FAMOTIDINE 20 MG TABLET PO (09:29)
[2024-10-31] MEDS: LISINOPRIL 20 MG TABLET PO (09:29)
[2024-10-31] MEDS: HYDROCHLOROTHIAZIDE 25 MG TABLET PO (09:29)
[2024-10-31] MEDS: ENSURE HP 237 ML LIQUID PO (09:30)
[2024-10-31] MEDS: FLUTICASONE PROPIONATE HFA 110 MCG INHALER 120 PUFF/12 GM IH (11:06)
--- NOTE | 2024-10-31 11:20 | P.DS_ITS ---
DS: Providers Provider Date of admission: 10/28/24 13:18 Primary care physician: Paulina James MD Admitting clinician: Rafi Mckeon Attending physician on admission: Rafi Mckeon Consults: 10/28/24 12:45 Consult to Pharmacy Routine Consulting Provider: Reason for consultation: Please [place] me when Med Rec is Updated Has provider been notified: No Occupational Therapy Eval and Treat Routine Reason for consultation: Only if needed for Rehab Has provider been notified: No Physical Therapy Eval and Treat Routine Reason for consultation: Eval and Treat Has provider been notified: No Attending physician on discharge: Shaikh Phil Discharging clinician: Shaikh Phil Anticipated date of discharge: 10/31/24 DS: Diagnosis Discharge Diagnosis (1) COVID-19: (2) Acute and chronic respiratory failure with hypoxia: (3) Chronic obstructive pulmonary disease: Qualifiers: COPD type: COPD with acute exacerbation Qualified Code(s): J44.1 - Chronic obstructive pulmonary disease with (acute) exacerbation (4) Chronic respiratory failure with hypoxia: (5) HTN (hypertension): Qualifiers: Hypertension type: primary hypertension Qualified Code(s): I10 - Essential (primary) hypertension (6) Lung nodule: (7) Former smoker: DS: Summary Hospital Course Hospital Course: 79-year-old female with history of chronic respiratory failure on 4 L of oxygen via nasal cannula presented to ER with worsening shortness of breath and was admitted to ICU on BiPAP for acute on chronic respiratory failure with hypoxia secondary to COVID-pneumonia. She was treated with IV steroids, inhaled bronchodilators and empirical IV antibiotics. She gradually improved was taken off of BiPAP and transition to nasal cannula. On day of discharge today, she feels well and denies shortness of breath and has been ambulating without any difficulty. She is comfortable on her 4 L of oxygen via nasal cannula. Patient is medically stable for discharge on oral prednisone taper and oral Levaquin. She has an appointment with pulmonology as an outpatient. She will also benefit from outpatient follow-up with her PCP. Status at Discharge Functional status at discharge: independent ambulation Overall status at discharge: patient is back to baseline Time Spent with Patient Time attestation: Total time spent providing and/or coordinating discharge services: Time spent: greater than 30 minutes Exam Constitutional Vital Signs, click to edit/add: Last Vital Signs Temp 98.0 F 10/31/24 11:14 Pulse 90 10/31/24 11:14 Resp 18 10/31/24 11:14 BP 116/64 10/31/24 11:14 Pulse Ox 93 L 10/31/24 11:14 O2 Del Method Nasal Cannula 10/31/24 11:14 O2 Flow Rate 4 10/31/24 11:14 FiO2 35 10/28/24 23:50 Common normals: oriented x3 General appearance: cooperative and comfortable Nutritional appearance: obese Respiratory Common normals: normal respiratory effort and no use of accessory muscles Auscultation: wheezes Cardio Common normals: regular rate, regular rhythm, S1 normal heart sound and S2 normal heart sound Extremity Common normals: no clubbing, cyanosis or edema Neuro Common normals: oriented x3, moves all extremities, no focal motor deficits and no sensory deficits noted Psych Common normals: mental status grossly normal, thought process normal, denies homicidal ideation and denies suicidal ideation DS: Data Data Completed and Pending Labs on day of discharge: Labs from last 24 hours 10/31/24 10/30/24 10/30/24 06:28 21:24 16:48 WBC 9.3 RBC 3.19 L Hgb 9.4 L Hct 31.9 L MCV 100.0 H MCH 29.5 MCHC 29.5 L RDW 13.5 Plt Count 246 MPV 9.1 L Neut % (Auto) 82.3 H Lymph % (Auto) 6.1 L Person % (Auto) 6.7 Eos % (Auto) 0.0 L Baso % (Auto) 0.2 Neut # (Auto) 7.6 H Lymph # (Auto) 0.6 L Person # (Auto) 0.6 Eos # (Auto) 0.0 Baso # (Auto) 0.0 Abs Immat Gran (auto) 0.44 H Imm/Tot Granulo (auto) 4.7 H Sodium 147 H Potassium 4.2 Chloride 100 Carbon Dioxide 50.5 H Anion Gap 0.7 BUN 31.0 H Creatinine 0.91 Est GFR ( Amer) >60 Est GFR (Non-Af Amer) 60 BUN/Creatinine Ratio 34.1 Glucose 122 H Calcium 9.7 Total Bilirubin 0.2 AST 17 ALT 15 Alkaline Phosphatase 55 Total Protein 6.8 Albumin 2.8 L Globulin 4.0 Albumin/Globulin Ratio 0.7 POC Glucose 155 H 144 H 10/30/24 12:29 WBC RBC Hgb Hct MCV MCH MCHC RDW Plt Count MPV Neut % (Auto) Lymph % (Auto) [place] % (Auto) Eos % (Auto) Baso % (Auto) Neut # (Auto) Lymph # (Auto) [place] # (Auto) Eos # (Auto) Baso # (Auto) Abs Immat Gran (auto) Imm/Tot Granulo (auto) Sodium Potassium Chloride Carbon Dioxide Anion Gap BUN Creatinine Est GFR ( Amer) Est GFR (Non-Af Amer) BUN/Creatinine Ratio Glucose Calcium Total Bilirubin AST ALT Alkaline Phosphatase Total Protein Albumin Globulin Albumin/Globulin Ratio POC Glucose 136 H Preliminary micro results at discharge 10/28/24 10:18 Blood Culture Result 2 - Preliminary Blood NO GROWTH AT 36-48 HOURS. FINAL TO FOLLOW. 10/28/24 10:10 Blood Culture Result 1 - Preliminary Blood Discharge Plan Discharge Disposition: Home Health Service Condition: Fair Discharge Medications: New levofloxacin 750 mg tablet 750 mg PO DAILY 4 Days Qty: 4 0RF prednisone 20 mg tablet 20 mg PO DAILY Qty: 20 0RF Rx Instructions: take 3 tab x 3 days, 2 tab x 3 days, 1 tab x 3 days 1/2 tab x 4 days. 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 They will call within 48 hours of discharge, they plan to start care Friday or Friday. Phone number is [phone] Forms: Portal Instructions Follow Up Appointments: Dr Paulina James 2024 at 10:30 F/u with Pulmonology in 1-2 weeks
--- NOTE | 2024-11-03 16:18 | CM.DCFOLLOWU ---
Person spoke with:patient How are you feeling? well How is your pain?none Did you understand your discharge instructions? yes Do you have any questions about your discharge instructions? no Were you given any prescriptions at discharge? yes Were you able to get your prescriptions filled?yes Do you understand how to take your medications as ordered?yes Do you have any questions about your follow up appointment and do you plan to keep your follow up appointment? no questions, follow up rescheduled for Friday Is there anything else that you would like to discuss?no Questions/Comments/Concerns/Other:none
== END 2024-10-31 13:07 | disposition home or self-care (01) | DRG 871 ==
LOC: ER 12:43 → ICU 13:27 → MS 10-29 12:47
PROVIDERS: Internal Medicine; Admitting Provider Family Medicine; Emergency Provider Emergency Medicine; PCP Family Medicine; Visit Provider Family Medicine
DX: A41.9 Sepsis, unspecified organism (principal); J15.9 Unspecified bacterial pneumonia; J96.21 Acute and chronic respiratory failure with hypoxia; U07.1 COVID-19; J44.1 Chronic obstructive pulmonary disease with (acute) exacerbation; J44.0 Chronic obstructive pulmonary disease with (acute) lower respiratory infection; E87.0 Hyperosmolality and hypernatremia; E44.0 Moderate protein-calorie malnutrition; E86.0 Dehydration; I11.0 Hypertensive heart disease with heart failure; I50.9 Heart failure, unspecified; R91.1 Solitary pulmonary nodule; Z87.891 Personal history of nicotine dependence; Z68.34 Body mass index [BMI] 34.0-34.9, adult; Z79.899 Other long term (current) drug therapy
CPT/HCPCS: 36415; 36600; 51702; 71045; 71275; 80048; 80053; 80076; 81001; 82800; 82805; 82948; 83605; 83880; 84484; 85007; 85025; 85027; 87040; 87070; 87075; 87150; 87186; 87205; 87804; 87811; 93005; 94640; 94660; 94667; 94668; 94761; 96374; 96375; 97161; 97165; 97530; 99285; J1100; J1650; J1940; J2543; J2919; J3490; Q9967

== ENCOUNTER 2024-11-11 13:51 | Outpatient (OUT) | payer MEDICARE, OTHER, SELFPAY ==
--- NOTE | 2024-11-11 14:00 | CA_ITS ---
Patient Name: SUZETTE GUSTAFSON MR#: [id number] : 1945 Exam Date: 11/11/2024 Ordering Doctor: DR Paulina Jaems M.D. ECHOCARDIOGRAM REPORT PROCEDURE: CA ECHO DOPPLER COMPLETE INDICATIONS: Hypertension, edema, emphysema COMPARISON: None. DESCRIPTION: COMPLETE ECHOCARDIOGRAM Real-time transthoracic echocardiography with 2D, M-mode, spectral and color flow Doppler performed. QUALITY: Technical quality was good. LEFT VENTRICLE: Normal chamber size. Proximal septal hypertrophy (sigmoid septum). Normal systolic function. LV EF: Normal left ventricular ejection fraction, (55-60%). DIASTOLIC: Diastolic function is indeterminate. ATRIAL SEPTUM: Visually appears intact. LEFT ATRIUM: Mild dilatation. RIGHT ATRIUM: Normal chamber size. RIGHT VENTRICLE: Normal chamber size. Normal right ventricular systolic function. TRICUSPID VALVE: Normal mobility and thickness. No stenosis with no regurgitation. MITRAL VALVE: Normal mobility and thickness. No evidence of mitral valve stenosis. There is no mitral annular calcification. Trivial mitral regurgitation. AORTIC VALVE: Normal trileaflet appearance. Mildly calcified aortic valve. Normal leaflet mobility. No evidence of aortic valve stenosis. No aortic regurgitation. AORTIC ROOT: Normal diameter and appearance. Ascending aorta is normal in size. PULMONIC VALVE: Normal thickness and mobility. No stenosis. No regurgitation. PERICARDIUM: No evidence of pericardial effusion. IVC: IVC is normal in size, does not fully collapse. PLEURA: CONCLUSION: 1. Normal ventricular size and systolic function. LVEF is 55-60%. 2. Calcified aortic valve with no stenosis. 3. No significant valvular dysfunction. Adult Echocardiography Procedure Report Left Ventricle LVEDD (3.7 - 5.6 cm): 3.92 cm LVESD (2.2 - 4.0 cm): 2.70 cm LVIVS thickness (0.6 - 1.2 cm): 1.18 cm LVPW thickness (0.5 - 1.0 cm): 0.93 cm e': 0.10 m/s E - e': 7.46 LVOT Max Gradient: 4.09 mm[Hg] LVOT Area (cm2): 1.01 m/s Peak Velocity (LVOT): 1.01 m/s Mean Velocity (LVOT): 0.61 m/s LVOT Diameter 2.04 cm Left Atrium LA Volume Index (2D A2C): 36.24 ml/m2 Left Atrium Systolic Dimension: 3.09 cm Mitral Valve MV E to A Ratio: 0.70 Mitral Valve A-Wave Peak Velocity: 1.11 m/s Mitral Valve E-Wave Peak Velocity: 0.78 m/s Right Ventricle Aorta AO Root Diam: 3.49 cm Ascending Ao Diam: 2.78 cm Aortic Valve AoV Area (Peak Ben): 2.78 cm2, 2.78 cm2 AoV Area (VTI): 3.27 cm2, 3.27 cm2 Peak Velocity(Antegrade Flow): 1.19 m/s Peak Gradient(Antegrade Flow): 5.67 mm[Hg] Mean Velocity(Antegrade Flow): 0.82 m/s Mean Gradient(Antegrade Flow): 3.15 mm[Hg] Velocity Time Integral: 22.59 cm Tricuspid Valve Pulmonic Valve Mean Gradient: 3.53 mm[Hg] Mean Velocity: 0.84 m/s Peak Velocity: 1.39 m/s, 1.38 m/s Peak Gradient: 7.59 mm[Hg], 7.70 mm[Hg] Right Atrium Right Atrium Systolic Pressure: 36.14 ml, 36.14 ml Dictated by: Anders Butcher M.D. on 11/13/2024 at 15:31 Approved by: Anders Butcher M.D. on 11/13/2024 at 15:35
== END 2024-11-11 13:52 | disposition home or self-care (01) ==
LOC: CARD 13:51
PROVIDERS: PCP Family Medicine; Visit Provider Family Medicine
DX: J81.1 Chronic pulmonary edema (principal); I10 Essential (primary) hypertension; J96.21 Acute and chronic respiratory failure with hypoxia
CPT/HCPCS: 93306

== ENCOUNTER 2025-08-02 15:11 | Emergency (ER) | payer MEDICARE, OTHER, SELFPAY ==
[2025-08-02] VITALS (18 sets, daily range): BP systolic 143–160; BP diastolic 52–94; PULSE 65–107; TEMP 37.2; O2SAT 95–100; BMI 35.4
--- NOTE | 2025-08-02 15:13 | ECG_ITS ---
[facility] Test Date: 2025-08-02 Pat Name: SUZETTE GUSTAFSON Department: Room: - Gender: Female Department Specialist: : 1945 Requested By: ROCHELLE BROOKE Order Number: [id number] [place] MD: ADRIAN GAUTAM M.D. Measurements Intervals [place] Rate: 90 P: 77 CO: 152 QRS: -25 QRSD: 92 T: 76 QT: 354 QTc: 402 Interpretive Statements 1100 Sinus rhythm 1970 with occasional ectopic premature complexes 7202 Moderate left axis deviation 9140 abnormal rhythm ECG Compared to ECG 10/28/2024 10:07:41 Sinus tachycardia no longer present Electronically Signed On 08-02-2025 18:15:22 EDT by ADRIAN GAUTAM M.D.
--- NOTE | 2025-08-02 15:14 | XR_ITS ---
[facility] [place] [id number] Patient Name: SUZETTE GUSTAFSON MRN: [id number] date: 1945 Sex: F Assigned Patient Location: ED.MAIN Current Patient Location: ED.MAIN Accession/Order Number: [id number] Exam Date: 08/02/2025 16:18 Report Date: 08/02/2025 16:37 At the request of: MOISÉS REECE DO Procedure: XR chest 2V Chest 2 views CLINICAL HISTORY: cough COMPARISON: None FINDINGS: Heart appears normal in size. Bibasilar atelectasis/scarring. No lung consolidation pneumothorax pleural effusion or free air. XR/XR chest 2V IMPRESSION: BIBASILAR ATELECTASIS/SCARRING. NO CONSOLIDATION TO SUGGEST PNEUMONIA. Impression dictated by: Joshua Prince Jr., D.OBriana 08/02/2025 4:37 PM Dictation Location: [place] [address] Electronically authenticated by: [id number] Y Date: 08/02/2025 16:37
[2025-08-02] MEDS: IPRATROPIUM/ALBUTEROL SULFATE 3 ML AMPUL.NEB 9 ML IH (15:36)
[2025-08-02 15:51] LABS: Hematocrit 31.0 % (36.0-48.0); Hemoglobin 8.8 g/dL (12.0-16.0); Mean Corpuscular HGB Conc 28.4 g/dL (29.9-35.2); Mean Corpuscular Hemoglobin 26.7 pg (26.7-34.0); Mean Corpuscular Volume 93.9 fL (81.0-99.0); Platelet Count 191 10^3/uL (150-450); Red Blood Count 3.30 10^6/uL (4.20-5.40); White Blood Count 6.9 10^3/uL (4.0-11.0)
[2025-08-02] MEDS: METHYLPREDNISOLONE SOD SUCC PF 40 MG/ML VIAL IVP (16:01)
[2025-08-02 16:14] LABS: Anion Gap 10.1; Blood Urea Nitrogen 16.0 mg/dL (7.0-18.0); Calcium 9.1 mg/dL (8.5-10.1); Carbon Dioxide 43.1 mmol/L (21.0-32.0); Chloride 96 mmol/L (98-107); Estimated GFR (African America >60 (>=60 mL/min/1.73m^2); Estimated GFR (Non-African Ame >60 (>=60 mL/min/1.73m^2); Glucose 113 mg/dL (74-106); Magnesium 1.9 mg/dL (1.8-2.4); Potassium 4.2 mmol/L (3.5-5.1); Sodium 145 mmol/L (136-145)
[2025-08-02 16:15] LABS: Band Neutrophils Absolute 0.1 10^3/uL (0.0-0.3); Segmented Neut Absolute Manual 5.72 10^3/uL (1.4-6.5); Segmented Neutrophils % Manual 83.0 (43.0-75.0)
[2025-08-02 16:16] LABS: Basophils Abs Manual 0.00 10^3/uL (0.00-0.10); Basophils Percent Manual 0.0 % (0.2-2.0); Eosinophils Absolute Manual 0.06 10^3/uL (0.00-0.70); Eosinophils Percent Manual 1.0 % (0.9-7.0); Lymphocytes Absolute Manual 0.41 10^3/uL (1.20-3.80); Lymphocytes Percent Manual 6.0 % (20.5-60.0); Monocytes Absolute Manual 0.55 10^3/uL (0.30-0.80); Monocytes Percent Manual 8.0 % (1.7-12.0); Smudge Cells 3
[2025-08-02 16:18] LABS: Hypochromasia 3+; Poikilocytosis 1+; RBC Morphology ABNORMAL; Stomatocytes 1+
[2025-08-02 16:19] LABS: NT Pro B Type Natriuretic Pept 169.0 pg/mL (<=1800.0)
--- OUTSIDE RECORDS SUMMARY | 2025-08-02 16:19 | XMS_ITS | Clinical Summary ---
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 Name Role Phone Paulina James MD Primary Care Provider [phone] Social History Tobacco Use Types Packs/Day Years Used Date Smoking Tobacco: Never Assessed Comments Unknown Sex and Gender Information Value Date Recorded Sex Assigned at Not on file Legal Sex Female 8:15 PM EDT Gender Identity Not on file Sexual Orientation Not on file Plan of Treatment Not on file Insurance MEDICARE [facility] MEDICARE SUPPLEMENT Care Teams Hoop Flaring Machine Operator Relationship Specialty Start Date End Date Paulina James MD [address] [place] [address] PCP - General Family Medicine 02/18/25
--- OUTSIDE RECORDS SUMMARY | 2025-08-02 16:19 | XMS_ITS | Patient Health Record ---
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 Name Role Phone Paulina James Primary Care Provider Marcio Shea Unavailable [phone] Allergies No Known Allergies Results Component Value Reference Range Notes BLOOD GASES BTY Reviewed date:10/31/2024 08:32:20 PM Interpretation: Performing Lab: Notes/Report: [facility] , pH ABG 7.307 7.350-7.450 ABG PCO2 >98.3 35.0-45.0 mmHg RESULTS SMITH D TO TITO CHERRY RN AT 1408 PO2 ABG 115.0 80.0-100.0 mmHg Oxygen Saturation ABG 98.9 Pepe Test POSITIVE POSITIVE O2 Mode NC Liters per Minute 6 Puncture Site LR Performing Lab: see note ML - [facility] LB LACTATE or LACTIC ACID Reviewed date:10/31/2024 08:32:20 PM Interpretation: Performing Lab: Notes/Report: [facility] , Lactate/Lactic Acid 0.8 0.4-2.0 mmol/L Performing Lab: see note ML - [facility] LB UA RANDOM W or MICROSCOPIC Reviewed date:10/31/2024 08:32:20 PM Interpretation: Performing Lab: Notes/Report: [facility] , Color Urine LT. YELLOW YELLOW Clarity Urine CLEAR CLEAR Specific [place] Urine 1.015 1.005-1.025 pH Urine 8.0 5.0-9.0 Protein Urine NEGATIVE NEG/TRACE mg/dL Glucose Urine UA NEGATIVE NEGATIVE mg/dL Bilirubin Urine NEGATIVE NEGATIVE Ketones Urine NEGATIVE NEGATIVE mg/dL Blood Urine NEGATIVE NEGATIVE Nitrite Urine NEGATIVE NEGATIVE Urobilinogen Urine 0.2 0.2-1.0 EU/dL Leukocyte Esterase Urine NEGATIVE NEGATIVE WBC Urine NONE SEEN NONE SEEN #/HPF RBC Urine NONE SEEN 0-2 #/HPF Bacteria Urine NONE SEEN NONE SEEN #/HPF Mucus Urine NONE SEEN NONE SEEN Squamous Epithelial Cell Urine RARE NONE/RARE #/LPF Crystals Seen? None Seen None Seen #/HPF Cast Seen? NONE SEEN NONE SEEN #/LPF Urine Culture Indicated NO Performing Lab: see note - [facility] LB Box Test Reviewed date:11/02/2024 12:37:27 PM Interpretation: Performing Lab: Notes/Report: BLOOD CX ANAEROBIC BOTTLE [facility] , BOX Test Sent Out BLOOD CULTURE BOX Test Reference Lab [facility] BOX Test Date Sent 10/28/24 BOX Test Result SEE SCANNED REPORT Performing Lab: see note [facility] LB CT angio chest Reviewed date:10/31/2024 08:32:20 PM Interpretation: Performing Lab: Notes/Report: Source Facility: [place] [address] CT Scan Report Signed Patient: STEFANY GUSTAFSON MR#: [id number] : 1945 Acct:[id number] Age/Sex: 79 / F ADM Date: 10/28/24 Loc: ICU 273-[address]: Grover Mckeon M.D. Ordering Physician: Grover Mckeon M.D. Date of Service: 10/28/24 Procedure(s): CT angio chest Accession Number(s): [id number] cc: Paulina James M.D. [place] [address] Patient Name: STEFANY GUSTAFSON MRN: [id number] date: 1945 Sex: F Assigned Patient Location: ICU Current Patient Location: ICU Accession/Order Number: [id number] Exam Date: 10/28/2024 15:15 Report Date: 10/28/2024 16:12 At the request of: GROVER HOY Procedure: CT angio chest CTA CHEST. CLINICAL HISTORY: Acute hypoxia COMPARISON: None available. TECHNIQUE: CT pulmonary angiogram. Initially, limited axial non-contrast images through chest obtained to establish proper bolus timing. Subsequently, contrast enhanced axial CT images were obtained through the chest. Axial, sagittal and coronal reformatted maximum intensity projection images and / or 3D volume rendered images created. FINDINGS: Somewhat limited evaluation due to motion artifact. PULMONARY ARTERIES: No intraluminal filling defects within the central or segmental pulmonary arteries to suggest pulmonary embolism.. Normal RV:LV ratio (<1). AORTA: The thoracic aorta diameter is normal without aneurysm or dissection. LUNGS: There is a 6 mm subpleural nodule in the left lower lobe. No airspace disease. No pleural effusions.. No pneumothorax. LYMPH NODES: No enlarged mediastinal lymph nodes by CT criteria. HEART: Heart size is normal. No pericardial effusion. Coronary artery calcification. UPPER ABDOMEN: Images of the upper abdomen demonstrate no abnormality. MUSCULOSKELETAL: No acute osseous abnormality. CT/CT angio chest IMPRESSION: 1. No pulmonary embolism. 2. No aortic aneurysm or dissection. 3. No pulmonary airspace disease. 4. Mild centrilobular emphysema. 5. Left lower lobe 6 mm nodule. Refer to recommendations below. Incidental single solid nodule 6-8 mm: *In a low risk patient, recommend noncontrast chest CT in 6-12 months, then consider additional CT at 18-24 months. *In a high-risk patient, recommend noncontrast chest CT at 6-12 months, then another noncontrast chest CT at 18-24 months. Electronically authenticated by: JHONATAN HI Date: 10/28/2024 16:12 Dictated By: Jhonatan Hi M.D. 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 GASES BTY Reviewed date:10/31/2024 08:32:20 PM Interpretation: Performing Lab: Notes/Report: [facility] , pH ABG 7.364 7.350-7.450 ABG PCO2 89.4 35.0-45.0 mmHg RESULTS SMITH D TO YADIRA BERMEO(ZULLY) IN ICU PO2 ABG 81.6 80.0-100.0 mmHg HCO3 ABG 51.0 22.0-26.0 mmol/L Base Excess ABG 25.6 -2.0-2.0 mmol/L Oxygen Saturation ABG 97.1 Pepe Test POS POSITIVE O2 Mode BIPAP Fractionated Inspired Oxygen 40 Puncture Site LEFT RADIAL BIPAP Pressure 16/8 Rate 16 Performing Lab: see note ML - [facility] LB BNP Reviewed date:10/31/2024 08:32:20 PM Interpretation: Performing Lab: Notes/Report: [facility] , NT Pro B Type Natriuretic Pept 483.0 <=1800.0 pg/mL Performing Lab: see note ML - [facility] LB CBC AUTO DIFF Reviewed date:10/31/2024 08:32:20 PM Interpretation: Performing Lab: Notes/Report: [facility] , White Blood Count 9.6 4.0-11.0 10 3/uL Red Blood Count 3.39 4.20-5.40 10 6/uL Hemoglobin 10.0 12.0-16.0 g/dL Hematocrit 33.8 36.0-48.0 % Mean Corpuscular Volume 99.7 81.0-99.0 fL Mean Corpuscular Hemoglobin 29.5 26.7-34.0 pg Mean Corpuscular HGB Conc 29.6 29.9-35.2 g/dL Red Cell Distribution Width 13.9 11.0-15.0 % Platelet Count 246 150-450 10 3/uL Mean Platelet Volume 9.3 9.5-13.5 fL Neutrophils Percent Auto 87.2 43.0-75.0 % Lymphocytes Percent Auto 4.4 20.5-60.0 % Monocytes Percent Auto 7.1 1.7-12.0 % Eosinophils Percent Auto 0.0 0.9-7.0 % Basophils Percent Auto 0.1 0.2-2.0 % Immature Granulocytes Pct Auto 1.2 0.0-0.5 % Neutrophils Absolute Auto 8.4 1.4-6.5 10 3/uL Lymphocytes Absolute Auto 0.4 1.2-3.8 10 3/uL Monocytes Absolute Auto 0.7 0.3-0.8 10 3/uL Eosinophils Absolute Auto 0.0 0.0-0.7 10 3/uL Basophils Absolute Auto 0.0 0.0-0.1 10 3/uL Immature Granulocytes Abs Auto 0.12 0.00-0.03 10 3/uL Performing Lab: see note ML - [facility] LIVER PROFILE Reviewed date:10/31/2024 08:32:20 PM Interpretation: Performing Lab: Notes/Report: [facility] , Bilirubin Total 0.2 0.2-1.0 mg/dL Bilirubin Direct 0.1 0.0-0.2 mg/dL Aspartate Amino Transferase 17 15-37 U/L Alanine Aminotransferase 15 14-59 U/L Alkaline Phosphatase 68 46-116 U/L Total Protein 7.6 6.4-8.2 g/dL Albumin Level 2.9 3.4-5.0 g/dL Globulin 4.7 Albumin Globulin Ratio 0.6 Performing Lab: see note ML - [facility] PROF 14(COMP METB) Reviewed date:10/31/2024 08:32:20 PM Interpretation: Performing Lab: Notes/Report: [facility] , Sodium 147 136-145 mmol/L Potassium 4.0 3.5-5.1 mmol/L Chloride 98 98-107 mmol/L Carbon Dioxide 49.3 21.0-32.0 mmol/L Anion Gap 3.7 Glucose 134 74-106 mg/dL Blood Urea Nitrogen 21.0 7.0-18.0 mg/dL Creatinine 1.01 0.55-1.02 mg/dL Estimated GFR ( Audra >60 >=60 mL/min/1.73m 2 Estimated GFR (Non- Danitza 53 >=60 mL/min/1.73m 2 BUN Creatinine Ratio 20.8 Calcium 9.4 8.5-10.1 mg/dL Bilirubin Total 0.2 0.2-1.0 mg/dL Aspartate Amino Transferase 16 15-37 U/L Alanine Aminotransferase 17 14-59 U/L Alkaline Phosphatase 70 46-116 U/L Total Protein 7.6 6.4-8.2 g/dL Albumin Level 2.8 3.4-5.0 g/dL Globulin 4.8 Albumin Globulin Ratio 0.6 Performing Lab: see note ML - [facility] Troponin I High Sensitivity Reviewed date:10/31/2024 08:32:20 PM Interpretation: Performing Lab: Notes/Report: [facility] , Troponin I High Sensitivity 18.8 4.0-51.3 pg/mL CUT-OFF POINTS HAVE BEEN ESTABLISHED BASED ON THE FOURTH UNIVERSAL DEFINITION OF MYOCARDIAL INFARCTION. THE UPPER REFERENCE LIMIT (URL) OF TROPONIN, DEFINED THE 99TH PERCENTILE OF cTnI DISTRIBUTION IN A REFERENCE POPULATION, HAS BEEN CONFIRMED THE DECISION THRESHOLD FOR SC DIAGNOSIS. 99TH PERCENTILE = 51.4 PG/ML NOTE: HIGH-SENSITIVITY TROPONIN ASSAY IS NOT INTENDED TO BE USED IN ISOLATION BUT SHOULD BE INTERPRETED IN CONJUNCTION WITH OTHER DIAGNOSTIC AND CLINICAL INFORMATION. Performing Lab: see note - [facility] LB Venous Blood Gas Reviewed date:10/31/2024 08:32:20 PM Interpretation: Performing Lab: Notes/Report: [facility] , pH VBG 7.385 7.330-7.430 PCO2 VBG 85.6 40.0-52.0 mmHg RESULTS LUIS Sarah TO BRENDA NUNEZ RN at 0539 Performing Lab: see note [facility] LB BNP Reviewed date:10/31/2024 08:32:20 PM Interpretation: Performing Lab: Notes/Report: [facility] , NT Pro B Type Natriuretic Pept 306.0 <=1800.0 pg/mL Performing Lab: see note - [facility] LB CBC AUTO DIFF Reviewed date:10/31/2024 08:32:20 PM Interpretation: Performing Lab: Notes/Report: [facility] , White Blood Count 11.0 4.0-11.0 10 3/uL Red Blood Count 3.04 4.20-5.40 10 6/uL Hemoglobin 8.9 12.0-16.0 g/dL Hematocrit 30.4 36.0-48.0 % Mean Corpuscular Volume 100.0 81.0-99.0 fL Mean Corpuscular Hemoglobin 29.3 26.7-34.0 pg Mean Corpuscular HGB Conc 29.3 29.9-35.2 g/dL Red Cell Distribution Width 14.0 11.0-15.0 % Platelet Count 250 150-450 10 3/uL Mean Platelet Volume 9.1 9.5-13.5 fL Neutrophils Percent Auto 81.2 43.0-75.0 % Lymphocytes Percent Auto 7.5 20.5-60.0 % Monocytes Percent Auto 10.1 1.7-12.0 % Eosinophils Percent Auto 0.0 0.9-7.0 % Basophils Percent Auto 0.1 0.2-2.0 % Immature Granulocytes Pct Auto 1.1 0.0-0.5 % Neutrophils Absolute Auto 8.9 1.4-6.5 10 3/uL Lymphocytes Absolute Auto 0.8 1.2-3.8 10 3/uL Monocytes Absolute Auto 1.1 0.3-0.8 10 3/uL Eosinophils Absolute Auto 0.0 0.0-0.7 10 3/uL Basophils Absolute Auto 0.0 0.0-0.1 10 3/uL Immature Granulocytes Abs Auto 0.12 0.00-0.03 10 3/uL Performing Lab: see note - [facility] LB PROF 14(COMP METB) Reviewed date:10/31/2024 08:32:20 PM Interpretation: Performing Lab: Notes/Report: [facility] , Sodium 149 136-145 mmol/L Potassium 3.7 3.5-5.1 mmol/L Chloride 100 98-107 mmol/L Carbon Dioxide 49.9 21.0-32.0 mmol/L Anion Gap 2.8 Glucose 112 74-106 mg/dL Blood Urea Nitrogen 27.0 7.0-18.0 mg/dL Creatinine 0.94 0.55-1.02 mg/dL Estimated GFR ( Audra >60 >=60 mL/min/1.73m 2 Estimated GFR (Non- Danitza 58 >=60 mL/min/1.73m 2 BUN Creatinine Ratio 28.7 Calcium 9.3 8.5-10.1 mg/dL Bilirubin Total 0.2 0.2-1.0 mg/dL Aspartate Amino Transferase 19 15-37 U/L Alanine Aminotransferase 17 14-59 U/L Alkaline Phosphatase 57 46-116 U/L Total Protein 6.8 6.4-8.2 g/dL Albumin Level 2.8 3.4-5.0 g/dL Globulin 4.0 Albumin Globulin Ratio 0.7 Performing Lab: see note ML - [facility] LB Troponin I High Sensitivity Reviewed date:10/31/2024 08:32:20 PM Interpretation: Performing Lab: Notes/Report: [facility] , Troponin I High Sensitivity 17.9 4.0-51.3 pg/mL CUT-OFF POINTS HAVE BEEN ESTABLISHED BASED ON THE FOURTH UNIVERSAL DEFINITION OF MYOCARDIAL INFARCTION. THE UPPER REFERENCE LIMIT (URL) OF TROPONIN, DEFINED THE 99TH PERCENTILE OF cTnI DISTRIBUTION IN A REFERENCE POPULATION, HAS BEEN CONFIRMED THE DECISION THRESHOLD FOR SC DIAGNOSIS. 99TH PERCENTILE = 51.4 PG/ML NOTE: HIGH-SENSITIVITY TROPONIN ASSAY IS NOT INTENDED TO BE USED IN ISOLATION BUT SHOULD BE INTERPRETED IN CONJUNCTION WITH OTHER DIAGNOSTIC AND CLINICAL INFORMATION. Performing Lab: see note ML - [facility] LB CBC AUTO DIFF Reviewed date:10/31/2024 08:32:20 PM Interpretation: Performing Lab: Notes/Report: [facility] , White Blood Count 9.3 4.0-11.0 10 3/uL Red Blood Count 3.19 4.20-5.40 10 6/uL Hemoglobin 9.4 12.0-16.0 g/dL Hematocrit 31.9 36.0-48.0 % Mean Corpuscular Volume 100.0 81.0-99.0 fL Mean Corpuscular Hemoglobin 29.5 26.7-34.0 pg Mean Corpuscular HGB Conc 29.5 29.9-35.2 g/dL Red Cell Distribution Width 13.5 11.0-15.0 % Platelet Count 246 150-450 10 3/uL Mean Platelet Volume 9.1 9.5-13.5 fL Neutrophils Percent Auto 82.3 43.0-75.0 % Lymphocytes Percent Auto 6.1 20.5-60.0 % Monocytes Percent Auto 6.7 1.7-12.0 % Eosinophils Percent Auto 0.0 0.9-7.0 % Basophils Percent Auto 0.2 0.2-2.0 % Immature Granulocytes Pct Auto 4.7 0.0-0.5 % Neutrophils Absolute Auto 7.6 1.4-6.5 10 3/uL Lymphocytes Absolute Auto 0.6 1.2-3.8 10 3/uL Monocytes Absolute Auto 0.6 0.3-0.8 10 3/uL Eosinophils Absolute Auto 0.0 0.0-0.7 10 3/uL Basophils Absolute Auto 0.0 0.0-0.1 10 3/uL Immature Granulocytes Abs Auto 0.44 0.00-0.03 10 3/uL Performing Lab: see note ML - [facility] LB PROF 14(COMP METB) Reviewed date:10/31/2024 08:32:20 PM Interpretation: Performing Lab: Notes/Report: [facility] , Sodium 147 136-145 mmol/L Potassium 4.2 3.5-5.1 mmol/L Chloride 100 98-107 mmol/L Carbon Dioxide 50.5 21.0-32.0 mmol/L Anion Gap 0.7 Glucose 122 74-106 mg/dL Blood Urea Nitrogen 31.0 7.0-18.0 mg/dL Creatinine 0.91 0.55-1.02 mg/dL Estimated GFR ( Audra >60 >=60 mL/min/1.73m 2 Estimated GFR (Non- Danitza 60 >=60 mL/min/1.73m 2 BUN Creatinine Ratio 34.1 Calcium 9.7 8.5-10.1 mg/dL Bilirubin Total 0.2 0.2-1.0 mg/dL Aspartate Amino Transferase 17 15-37 U/L Alanine Aminotransferase 15 14-59 U/L Alkaline Phosphatase 55 46-116 U/L Total Protein 6.8 6.4-8.2 g/dL Albumin Level 2.8 3.4-5.0 g/dL Globulin 4.0 Albumin Globulin Ratio 0.7 Performing Lab: see note ML - [facility] LB Reason For Referral No Information Medications Medication SIG (Take, Route, Frequency, Duration) Notes Start Date End Date Status Lisinopril-hydroCHLOROthia zide 20-25 MG 1 tablet Orally Once a day Active Stiolto Respimat 2.5-2.5 MCG/ACT 2 puffs Inhalation QD; Duration: 90 days Dispense #3 inhalers Active Ibuprofen 200 MG 1 tablet with food o r milk as needed Orally Three times a day Active Tylenol 325 MG 1 tablet as needed O rally every 4 hrs Active Albuterol Sulfate HFA 108 (90 Base) MCG/ACT 2 puffs as needed for SOB Inhalation Q4H; Duration: 90 days Dispense #3 inhalers Active predniSONE 5 MG 1 tablet Orally BID; Duration: 30 days Take with food Active Immunizations Vaccine Route Administration Date Status Comme nts SARS-COV-2 (COVID 19 Pfizer 30mcg/0.3mL) Unknown 01/11/2021 Administered Social History Tobacco Use: Social History Observation Description Date Details (start date - stop date) Former Smoker NA - NA Tobacco Control (Standard) Question Answer Notes Tobacco use: Former smoker How long has it been since y ou last smoked? Greater than 10 years Additional Findings: Tobacco non-user Ex -moderate cigarette smoker (10-19/day) Problems Problem Type SNOMED Code ICD Code Onset Dates Problem Status W/U Status Risk Notes Problem Obesity (204576422) Obesity, unspecified (E66.9) Active confirmed Problem Centrilobular emphysema (91748388) Centrilobular emphysema (J43.2) Active confirmed Problem Solitary pulmonary nodule (414719024) Solitary pulmonary nodule (R91.1) Active confirmed Problem Long-term current use of systemic steroid (488703294111369) [facility] (current) use of systemic steroids (Z79.52) Active confirmed Problem Rheumatoid arthritis (34583761) Rheumatoid arthritis (M06.9) Active confirmed Problem Essential hypertension (70331262) Benign essential HTN (I10) Active confirmed Problem Congestive heart failure (89720789) Congestive heart failure (I50.9) Active confirmed Problem Benign essential hypertension (7013219) Benign essential hypertension (I10) Active confirmed Problem Acute exacerbation of chronic obstructive airways disease (115320464) COPD exacerbation (J44.1) Active confirmed Problem Chronic hypoxemic respiratory failure (836880254) Chronic hypoxemic respiratory failure (J96.11) Active confirmed Problem Ex-tobacco user (finding) (087940812) History of tobacco abuse (Z87.891) Active confirmed Problem Obese class II (429853431283942) Body mass index [BMI] 35.0-35.9, adult (Z68.35) Active confirmed Problem Body mass index 35.00 to 39.99 (230911200316565) Body mass index [BMI] 36.0-36.9, adult (Z68.36) Active confirmed Vital Signs Heart Rate 95 /min 05/10/2025 4L O2 Activity/ Resting Temperature 97.0 degrees Fahrenheit 05/10/2025 4L O 2 Activity/Resting Respiratory Rate 20 /min 05/10/2025 4L O2 Activ ity/Resting Oximetry 89 % 05/10/2025 4L O2 Activity/ Resting Blood pressure diastolic 71 mm Hg 05/10/2025 4L O2 Activity/Resting Height 63.5 in 05/10/2025 4L O2 Activity/ Resting Blood pressure systolic 127 mm Hg 05/10/2025 4L O 2 Activity/Resting Weight 209.6 lbs 05/10/2025 4L O2 Activity/ Resting BMI 36.54 kg/m2 05/10/2025 4L O2 Activity/ Resting Encounters Encounter Location Date Provider Diagnosis Pulmonary Medicine [address] [address] 08/04/2024 Marcio Mireles Chronic obstructive pulmonary disease J44.9 ; Chronic hypoxemic respiratory failure J96.11 ; History of tobacco abuse Z87.891 and Obesity, unspecified E66.[address] [address] 11/09/2024 Marcio Mireles Centrilobular emphys burt J43.2 ; Pneumonia due to Coronavirus disease 2019 J12.82 ; Solitary pulmonary nodule R91.1 ; Chronic hypoxemic respiratory failure J96.11 ; History of tobacco abuse Z87.891 and Obesity, unspecified E66.[address] [address] 02/08/2025 Marcio Mireles Centrilobular emphys burt J43.2 ; Solitary pulmonary nodule R91.1 ; Chronic hypoxemic respiratory failure J96.11 ; History of tobacco abuse Z87.891 ; Obesity, unspecified E66.9 and [facility] (current) use of systemic steroids Z79.[address] [address] 05/10/2025 Marcio Mireles Centrilobular emphys burt J43.2 ; Solitary pulmonary nodule R91.1 ; Chronic hypoxemic respiratory failure J96.11 ; History of tobacco abuse Z87.891 ; Obesity, unspecified E66.9 and [facility] (current) use of systemic steroids Z79.[address] [address] 12/07/2024 Marcio Mireles Centrilobular emphys burt J43.2 Assessments Encounter Date Diagnosis (ICD Code) Assessment Notes Treatment Notes Treatment Clinical Notes Section Notes 08/04/2024 Chronic obstructive pulmonary disease (ICD-10 - J44.9) Prior inhalers: Stiolto > Anoro Patient is using Stiolto with some benefit, but continues to have worsening shortness of breath. She is using albuterol multiple times throughout the day now. Discussed now that there are several new FDA approved treatments for COPD. Dupixent will need to have lab work to evaluate for eosinophils. After discussion, will start Ohtuvayre (ensifentine), a novel PDE3/PDE4 inhibitor, in addition to this patient's regimen. It is dose via nebulizer BID. Reviewed potential adverse effects with the patient, including psychiatric - especially suicidal ideation - which the patient was instructed to stop and contact the office immediately. Fuvc-rt-[id number] was performed today regarding need for nebulizer. The patient does not have a nebulizer. She requires one for administration Ohtuvayre. Initial paperwork was signed by the patient. Will see if patient is able to afford this. Follow-up in 3 months to evaluate response (hopefully while on the new medication). 08/04/2024 Chronic hypoxemic respiratory failure (ICD-10 - J96.11) Kaga-md-[id number] encounter performed with the patient to document continued need for supplemental oxygen (O2).-Flow & directions: 3L/min O2 ATC -Patient voices adherence to recommended usage: Yes-Symptom control on O2: Decreased shortness of breath-Counseled patient not begin, restart, or continue smoking, around the O2 due to risk of fire which could result in damage to the O2 tanks & lines, smoke inhalation and flame damage to the airway, significant holloway, potential , property damage, and potential harm & to bystanders. Additionally, counseled it is not zultea to begin, restart, or continue smoking given the underlying pulmonary disease that led to the point of requiring O2.-Recommendations : Continue O2 ATC 11/09/2024 Centrilobular emphysema (ICD-10 - J43.2) Prior inhalers: Stiolto > Anoro I was finally able to visualize her lung parenchyma on the chest CT, which she had previously refused to get any. Upper lobe predominant centrilobular emphysema is noted. 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 The addition of Ohtuvayre on top of Stiolto appears to be beneficial. Patient states she was less symptomatic when taking both together. She stopped using Ohtuvayre after being admitted to the hospital and did not restart it at discharge. I advised the patient to restart Ohtuvayre he does not feel quite back to baseline, as well as the worsening breath sounds on examination. If her breathing does not improve overall, options are quite limited at this point. May need to begin looking into daily prednisone, we both agree that we would like to avoid this if able. 11/09/2024 Pneumonia due to Coronavirus disease 2019 (ICD-10 - J12.82) Admitted to [facility] on 10/28/2024 COVID. I personally reviewed the chest CT from that date. There are fine nodularities/small groundglass opacities more in the right lower lobe. These findings may represent viral pneumonia such as seen with COVID. They may represent a questionable pulmonary edema noted on the CXR to the chest CT. She states she has appointment for an echocardiogram as well as a referral to cardiology; I recommended that she follow through with this to complete the workup. In the meantime, given her ongoing symptoms and worsening breath sounds, I recommended that she have another prednisone taper to use if she feels that she needs it. 02/08/2025 Centrilobular emphysema (ICD-10 - J43.2) Prior treatment: Stiolto > Anoro ; Ohtuvayre Previously seemed to have benefit from Ohtuvayre, but patient later did not feel much improvement and stopped it. She started prednisone 5mg/day and states this has helped her breathing more. She was counseled on long-term adverse effects of chronic prednisone. She does not feel that an increase in prednisone dose is required at this time. Continue Stiolto for now. F/U 3 months as she remains on prednisone. 02/08/2025 Solitary pulmonary nodule (ICD-10 - R91.1) LLL 6mm solitary pulmonary nodule, appears pleural-based. Present on soft windows. In the [facility] solitary pulmonary nodule risk calculator, the risk of this nodule for malignancy is 9.4%. She does not wish for any further w/up at this time. 05/10/2025 Centrilobular emphysema (ICD-10 - J43.2) Prior treatment: Stiolto > Anoro ; Ohtuvayre Remains on prednisone 5mg/day, does not feel it is as beneficial as before. Discussed options - stop prednisone to see if she does worsen, stay at 5mg/day, or increase to 5mg BID. Patient stated she would like to try 5mg BID (or can double up to 10mg/day) this way she can double up or remain at 5mg/day dose. Continue Stiolto for now. Discussed there are not a lot of options remaining at this point. 12/07/2024 Centrilobular emphysema (ICD-10 - J43.2) 05/10/2025 Solitary pulmonary nodule (ICD-10 - R91.1) LLL 6mm solitary pulmonary nodule, appears pleural-based. Present on soft windows. In the [facility] solitary pulmonary nodule risk calculator, the risk of this nodule for malignancy is 9.4%. As before, patient refused any further monitoring or w/up. 02/08/2025 Chronic hypoxemic respiratory failure (ICD-10 - J96.11) Oean-ll-yecs encounter performed with the patient to document continued need for supplemental oxygen (O2).-Flow & directions: 3L/min O2 ATC -Patient voices adherence to recommended usage: Yes-Symptom control on O2: Decreased SOB-Counseled patient not begin, restart, or continue smoking, around the O2 due to risk of fire which could result in damage to the O2 tanks & lines, smoke inhalation and flame damage to the airway, significant holloway, potential , property damage, and potential harm & to bystanders. Additionally, counseled it is not zuleta to begin, restart, or continue smoking given the underlying pulmonary disease that led to the point of requiring O2.-Recommendations : Continue O2 @ 3L/min ATC. 11/09/2024 Solitary pulmonary nodule (ICD-10 - R91.1) LLL 6mm solitary pulmonary nodule, appears pleural-based. Present on soft windows. In the [facility] solitary pulmonary nodule risk calculator, the risk of this nodule for malignancy is 9.4%. Patient was previously resistant to ordering any CT imaging of her chest and had refused to LDCT screening. Now that a nodule has been discovered, I counseled her on the recommendations for follow-up; according to current Fleischner Society guidelines, follow-up of a nodule such as this would be between 6-12 months. The patient voiced that she did not want to get a repeat chest CT. I explained why not following up with us, there is a risk that this could be neoplasm and if not identified and treated within a timely manner, he could become too large to manage conservatively, or become metastatic. He voiced understanding of the risks and refused a chest CT follow-up today. I will discuss this with her again at her follow-up to verify that she went to have any further follow-up imaging. 08/04/2024 History of tobacco abuse (ICD-10 - Z87.891) Patient had been advised for years to participate in LDCT screening. Now she is 79 years old and is aging out of the current recommendations for LDCT screening. 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 Weight loss indicated: Decrease calories, increase activity. 02/08/2025 History of tobacco abuse (ICD-10 - Z87.891) Patient does not want further chest CT imaging. 05/10/2025 Chronic hypoxemic respiratory failure (ICD-10 - J96.11) Chtx-se-eysf encounter performed with the patient to document continued need for supplemental oxygen (O2).-Flow & directions: 3-4L/min O2 ATC -Patient voices adherence to recommended usage: Yes-Symptom control on O2: Decreased SOB-Counseled patient not begin, restart, or continue smoking, around the O2 due to risk of fire which could result in damage to the O2 tanks & lines, smoke inhalation and flame damage to the airway, significant holloway, potential , property damage, and potential harm & to bystanders. Additionally, counseled it is not zuleta to begin, restart, or continue smoking given the underlying pulmonary disease that led to the point of requiring O2.-Recommendations : SpO2 low on her Inogen. POC may be insufficient for her at this time. May need to consider changing to continuous flow O2. Continue O2 @ 3L/min ATC. 05/10/2025 History of tobacco abuse (ICD-10 - Z87.891) Patient declined any LDCT screening. She is going ot age out of it by her birthday in 2 months. 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 Weight loss indicated: Decrease calories, increase activity. 11/09/2024 Chronic hypoxemic respiratory failure (ICD-10 - J96.11) Icht-tr-hscb encounter performed with the patient to document continued need for supplemental oxygen (O2).-Flow & directions: 3L/min O2 ATC -Patient voices adherence to recommended usage: Yes-Symptom control on O2: Less dyspnea-Counseled patient not begin, restart, or continue smoking, around the O2 due to risk of fire which could result in damage to the O2 tanks & lines, smoke inhalation and flame damage to the airway, significant holloway, potential , property damage, and potential harm & to bystanders. Additionally, counseled it is not zuleta to begin, restart, or continue smoking given the underlying pulmonary disease that led to the point of requiring O2.-Recommendations : Patient is to continue O2 at 3L/min ATC. 11/09/2024 History of tobacco abuse (ICD-10 - Z87.891) The patient has refused prior LDCT screening recommendations. Now that a chest CT has been done and showed a 6 mm nodule, she would no longer follow-up with an LDCT screening, and at this time that she is 79 years old, but no longer meet the age for covered LDCT benefits through Medicare. 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 Weight loss indicated: Decrease calories, increase activity. 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 Counseled that she cannot stop prednisone cold turkey without alerting the office. 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 Counseled that she cannot stop prednisone cold turkey without alerting the office. 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 Weight loss indicated: Decrease calories, increase activity. Plan Of Treatment No Information Insurance Providers Payer Name Payer Address Payer Phone Subscriber Number Group Number Insured Name Patient Relationship to Insured Coverage Start Date Coverage End Date [place] [address] [place] [address] [phone] [id number] Stefany Gustafson Self - patient is the insured 2 [facility] [id number] [place] [phone] [id number] Stefany Gustafson Self - patient is the insured 6 Medical (General) History Medical History History ICD Code Chronic obstructive pulmonary disease J4 4.9 Chronic hypoxemic respiratory failure J9 6.11 Benign essential hypertension I10 Rheumatoid arthritis M06.9 History of tobacco abuse Z87.891 Surgical History Surgery Date(Month/Year) tonsillectomy cataract removal Hospitalization History Reason Date(Month/Year) Covid-19/COPD Exacerbation-TB 5
--- NOTE | 2025-08-02 16:23 | ED.GENADUL1 ---
HPI HPI - General Adult General Chief complaint: Shortness of Breath/Dyspnea Stated complaint: SOB, BLOOD PRESSURE Time Seen by Provider: 08/02/25 15:13 Source: patient Mode of arrival: Wheelchair Limitations: no limitations History of Present Illness HPI narrative: Patient is a 80-year-old female presenting to the emergency department for evaluation of shortness of breath. Patient has a history of COPD on 4 L nasal cannula. She no longer smokes. She states over the last 2 days she has been increasingly short of breath. She states she has been coughing up clear sputum. She has been using her albuterol inhaler at home, only minimally helping her symptoms. She uses a daily Stiolto Respimat inhaler. Otherwise, the patient has no other symptoms. She denies any chest pain. She denies any URI symptoms such as cough or congestion. She denies history of heart failure, leg swelling, DVT/PE, hemoptysis, or recent immobilization. Related Data Home Medications ?Medication ?Instructions ?Recorded ?Confirmed albuterol sulfate 90 mcg/actuation 2 puff inhalation Q4H PRN 10/28/24 08/02/25 aerosol inhaler shortness of breath or wheezing lisinopril 20 1 tab PO DAILY 10/28/24 08/02/25 mg-hydrochlorothiazide 25 mg tablet tiotropium 2.5 mcg-olodaterol 2.5 2 puff inhalation Q24H 10/28/24 08/02/25 mcg/actuation mist for inhalation (Stiolto Respimat) prednisone 5 mg tablet 10 mg PO DAILY 08/02/25 08/02/25 Allergies Allergy/AdvReac Type Severity Reaction Status Date / Time No Known Drug Allergies Allergy Verified 08/02/25 15:16 Opioid HPI Opioid Management Most Recent Opioid Data: Last Pain Scale 0 10/31/24, 13:05 Last Pain Intensity 0 10/30/24, 10:10 Last ORT Total Score 0 10/28/24, 13:46 Last ORT Risk Category Low Risk 10/28/24, 13:46 Review of Systems ROS Status of ROS 10 or more systems reviewed and unremarkable except as noted in history and below 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 - Emphysema, unspecified (ICD-10) Chronic respiratory failure with hypoxia ?J96.11 - Chronic respiratory failure with hypoxia (ICD-10) Former smoker ?Z87.891 - Personal history of nicotine dependence (ICD-10) Chronic obstructive pulmonary disease ?J44.9 - Chronic obstructive pulmonary disease, unspecified (ICD-10) Social History Highest level of school completed/degree received: high school graduate Little interest or pleasure in doing things: not at all Feeling down, depressed, or hopeless: not at all Exam Narrative Exam Narrative: CONSTITUTIONAL: Well-appearing, answering questions and following commands appropriately SKIN: Was warm and dry. EYES: Sclerae white. EARS, NOSE, THROAT: Moist oral mucosa. RESPIRATORY: Diminished breath sounds bilaterally with faint expiratory wheezing. No use of accessory muscles. On 4 L nasal cannula and mildly dyspneic. CARDIOVASCULAR: Normal rate and regular rhythm. There is no S3, S4, murmur, rub. GASTROINTESTINAL: Abdomen is nondistended. MUSCULOSKELETAL: No peripheral edema. NEUROLOGIC: Patient is awake and alert. Facies were symmetrical. Constitutional Vital Signs, click to edit/add: Last Vital Signs Temp 99.0 F 08/02/25 15:17 Pulse 92 H 08/02/25 17:01 Resp 19 08/02/25 17:01 BP 143/52 H 08/02/25 17:01 Pulse Ox 100 08/02/25 17:01 O2 Del Method Nasal Cannula 08/02/25 15:37 O2 Flow Rate 4 08/02/25 15:37 Course Vital Signs Vital signs: Vital Signs Temperature 99.0 F 08/02/25 15:17 Pulse Rate 65 08/02/25 15:17 Respiratory Rate 20 08/02/25 15:17 Blood Pressure 158/94 H 08/02/25 15:17 Pulse Oximetry 100 08/02/25 15:17 Oxygen Delivery Method Nasal Cannula 08/02/25 15:17 Oxygen Delivery Flow Rate 4 08/02/25 15:17 Temperature 99.0 F 08/02/25 15:17 Pulse Rate 92 H 08/02/25 17:01 Respiratory Rate 19 08/02/25 17:01 Blood Pressure 143/52 H 08/02/25 17:01 Pulse Oximetry 100 08/02/25 17:01 Oxygen Delivery Method Nasal Cannula 08/02/25 15:37 Oxygen Delivery Flow Rate 4 08/02/25 15:37 Medical Decision Making MDM Narrative Medical decision making narrative: Patient is a 80-year-old female, history significant for COPD on 4 L nasal cannula, presenting to the emergency department for 3-day history of worsening shortness of breath. Patient was at her PCPs office earlier today, noted to be 84% on 4L, and was sent to our ED. her vital signs on arrival to our emergency department were significant for hypertension, otherwise within normal limits. She is saturating 100% on her home oxygen requirements of 4 L nasal cannula. She does not appear to be in acute respiratory distress, though she is complaining of shortness of breath. She has diminished breath sounds bilaterally with faint expiratory wheezes. My clinical impression is that the patient symptoms are secondary to COPD exacerbation. She has no URI symptoms, though a chest x-ray was ordered to rule out underlying pneumonia, pneumothorax. Other potential etiologies include ACS, arrhythmia, symptomatic anemia, or other electrolyte/metabolic derangement. IV was established and laboratory studies were obtained. She was treated with nebulized albuterol/ipratropium and IV Solu-Medrol. 12 Lead EKG: Normal sinus rhythm at a rate of 90. Normal axis. Occasional PACs. No ST segment elevations. QRS, TX, and QTc interval within normal limits. Final impression: normal sinus rhythm without evidence of acute myocardial ischemia Laboratory studies were unremarkable. No significant electrolyte or metabolic derangement. No evidence of acute kidney injury. She is anemic but close to her baseline. No leukocytosis. Troponin and BNP not elevated. Chronically elevated bicarb secondary to history of COPD, which is at her baseline. Chest x-ray independently reviewed/interpreted by myself demonstrated no acute cardiopulmonary process. On reevaluation, patient states she feels significantly improved. She remains 96% on her home oxygen requirements. She has her oxygen condenser with her. She states she feels back to her baseline. She was able to ambulate to the bathroom without feeling dyspneic and feels ready to be discharged home. I do believe the patient is stable for discharge. Patient's presentation is most likely consistent with COPD exacerbation. They were instructed to follow up with her PCP for further care. Return precautions were given including any new or worsening symptoms. Patient understands and agrees to the plan. FINAL IMPRESSION: #Acute COPD exacerbation, improved DISPOSITION: Discharged home CONDITION: Good Medical Records Medical records reviewed: Yes I reviewed the patient's medical records Lab Data Lab results reviewed: Yes I reviewed the patient's lab results Labs: Lab Results 08/02/25 Range/Units 15:25 WBC 6.9 (4.0-11.0) 10^3/uL RBC 3.30 L (4.20-5.40) 10^6/uL Hgb 8.8 L (12.0-16.0) g/dL Hct 31.0 L (36.0-48.0) % MCV 93.9 (81.0-99.0) fL MCH 26.7 (26.7-34.0) pg MCHC 28.4 L (29.9-35.2) g/dL RDW 17.5 H (11.0-15.0) % Plt Count 191 (150-450) 10^3/uL MPV 9.5 (9.5-13.5) fL Seg Neuts % (Manual) 83.0 H (43.0-75.0) Band Neutrophils % 2.0 (0-5) % Lymphocytes % (Manual) 6.0 L (20.5-60.0) % Monocytes % (Manual) 8.0 (1.7-12.0) % Eosinophils % (Manual) 1.0 (0.9-7.0) % Basophils % (Manual) 0.0 L (0.2-2.0) % Neutrophils # (Manual) 5.72 (1.4-6.5) 10^3/uL Band Neutrophils # 0.1 (0.0-0.3) 10^3/uL Lymphocytes # (Manual) 0.41 L (1.20-3.80) 10^3/uL Monocytes # (Manual) 0.55 (0.30-0.80) 10^3/uL Eosinophils # (Manual) 0.06 (0.00-0.70) 10^3/uL Basophils # (Manual) 0.00 (0.00-0.10) 10^3/uL Smudge Cells 3 Plt Morphology Comment Normal RBC Morphology Abnormal Hypochromasia 3+ Poikilocytosis 1+ Stomatocytes 1+ Sodium 145 (136-145) mmol/L Potassium 4.2 (3.5-5.1) mmol/L Chloride 96 L (98-107) mmol/L Carbon Dioxide 43.1 H (21.0-32.0) mmol/L Anion Gap 10.1 BUN 16.0 (7.0-18.0) mg/dL Creatinine 0.72 (0.55-1.02) mg/dL Est GFR ( Amer) >60 (>=60 mL/min/1.73m^2) Est GFR (Non-Af Amer) >60 (>=60 mL/min/1.73m^2) BUN/Creatinine Ratio 22.2 Glucose 113 H (74-106) mg/dL Calcium 9.1 (8.5-10.1) mg/dL Magnesium 1.9 (1.8-2.4) mg/dL Troponin I High Sens 17.1 (4.0-51.3) pg/mL NT-Pro-B Natriuret Pep 169.0 (<=1800.0) pg/mL Imaging Data Chest x-ray: Attestation: I personally reviewed and interpreted this imaging study as follows: Radiologist's impression: ITS Impressions Chest X-Ray 08/02/25 15:14 IMPRESSION: BIBASILAR ATELECTASIS/SCARRING. NO CONSOLIDATION TO SUGGEST PNEUMONIA. Impression dictated by: Joshua Prince Jr., DBrianaOBriana 08/02/2025 4:37 PM Dictation Location: [place] [address] Electronically authenticated by: [id number] Y Date: 08/02/2025 16:37 ECG Data Attestation: I personally reviewed and interpreted this ECG as follows: Discharge Plan Discharge Chief Complaint: Shortness of Breath/Dyspnea Clinical Impression: COPD exacerbation Patient Disposition: Home, Self-Care Time of Disposition Decision: 17:34 Condition: Good Mode of Transportation: Private Vehicle Prescriptions / Home Meds: No Action lisinopril-hydrochlorothiazide 20-25 mg tablet 1 tab PO DAILY albuterol sulfate 90 mcg/actuation HFA aerosol inhaler 2 puff INHALATION Q4H PRN (Reason: shortness of breath or wheezing) Stiolto Respimat 2.5-2.5 mcg/actuation mist 2 puff INHALATION Q24H prednisone 5 mg tablet 10 mg PO DAILY Print Language: [place] Instructions: COPD (Chronic Obstructive Pulmonary Disease) (ED) Referrals: Paulina James MD [Primary Care Provider, [facility]] - 1 week Discharge Date/Time: 08/02/25 17:58
--- OUTSIDE RECORDS SUMMARY | 2025-08-02 16:23 | XMS_ITS | CCD ---
Author Organization [facility] Care Team Providers Care Engine Manager Name Role Phone WEST, DR HESHAM Terrell Consulting Unavailable MENDY, DR PAULINA Kellogg Attending Unavailable MENDY, DR PAULINA Kellogg Primary Care Unavailable MENDY, DR PAULINA Kellogg Admitting Unavailable MENDY, DR PAULINA Kellogg Consulting Unavailable Paulina James Keegan Coles DO Attending Provider Unavailab Keegan Duncan Attending Unavailable Keegan Coles Admitting Unavailable Paulina James MD Primary Care Provider Paulina James MD Attending Provider [phone] Allergies Allergy Classification Reported Allergen(s) Allergy Type Date of Onset Reaction(s) Facility (1 source) Codeine Drug Allergy Unknown [facility] Other (1 source) Codeine Drug Allergy 03-09-2024 [facility] Repository Medications Current Medications Medication Drug Class(es) Dates Sig (Normalized) Sig (Original) [id number] 200 actuat albuterol 0.09 mg/actuat metered dose inhaler (10 sources) beta2-Adrenergic Agonist Start: 05-24-2024 take 2 puff(s) by mouth every six hours as needed Albuterol Sulfate 90 mcg/actuation HFA aerosol inhaler Active 0 .ROUTE .COMPLEX 8.May 24, 2024 10:00am INHALE 2 PUFFS BY MOUTH EVERY 6 HOURS NEEDED FOR BRONCHOSPASM Complies with drug therapy Start: 03-09-2024 End: 05-24-2024 take 1 puff(s) by inhalation every six hours as needed Albuterol Sulfate 90 mcg/actuation HFA aerosol inhaler Discontinued 2 PUFF INHALATION Every 6 hours as needed for bronchospasm .March 09, 2024 11:00am May 24, 2024 10:00am Start: 02-11-2024 End: 03-09-2024 take 2 puff(s) by inhalation every four hours as needed Albuterol Sulfate 90 mcg/actuation HFA aerosol inhaler Discontinued 2 PUFF INHALATION February 11, 2024 12:00am March 09, 2024 11:01am INHALE 2 PUFFS INTO THE LUNGS EVERY 4 HOURS NEEDED take 2 puff(s) by mo uth every four hours as needed Albuterol Sulfate HFA 108 (90 Base) MCG/ACT TAKE 2 PUFFS BY MOUTH EVERY 4 HOURS NEEDED for 30 Active azithromycin 250 mg oral tablet (1 source) Macrolide Antimicrobial Start: 11-22-2022 Azithromycin 250 MG as directed Orally 2 tabs po today, then 1 tab daily x 4 more days for 5 Oct, Active hydroCHLOROthiazide 25 mg / lisinopril 20 mg oral tablet (5 sources) Thiazide Diuretic, Angiotensin Converting Enzyme Inhibitor Start: 11-16-2024 take 1 tablet by mouth once daily Lisinopril-Hydroc hlorothiazide 20-25 mg tablet Active 0 .ROUTE .COMPLEX 90 November 16, 2024 1:55pm TAKE 1 TABLET BY MOUTH EVERY DAY Complies with drug therapy Start: 03-08-2024 End: 11-16-2024 take 1 tablet by mouth once daily Lisinopril-Hydrochlorothiazide 20-25 mg tablet Discontinued 1 TAB PO Daily March 08, 2024 12:00am November 16, 2024 1:55pm FreeTextSig: TAKE 1 TABLET BY MOUTH EVERY DAY; Note: Source Status: Start; Refills: 3; Qty: 90 Tablet; Provider: Mendy Gallardo ( ) take 1 tablet by edinson th once daily Lisinopril-hydroCHLOROthiazide 20-25 MG TAKE 1 TABLET BY MOUTH EVERY DAY for Active Tiotropium-Olodaterol (3 sources) Anticholinergic, beta2-Adrenergic Agonist Start: 03-08-2024 Tiotropium-Olodaterol (Stiolto Respimat) 2.5-2.5 mcg/actuation mist Active 2 PUFF INHALATION Daily March 08, 2024 12:00am Complies with drug therapy Start: 03-08-2024 Tiotropium-Olo daterol (Stiolto Respimat) 2.5-2.5 mcg/actuation mist Active 2 PUFF INHALATION Daily March 07, 2024 11:00pm predniSONE 5 mg oral tablet (2 sources) Start: 04-26-2025 take 1 tablet by mouth once daily Prednisone 5 mg tablet Active 5 MG PO Daily April 26, 2025 12:00am Complies with drug therapy Start: 11-22-2022 take 2 tablets by [facility] every twenty-four hours predniSONE 20 MG 2 tablets Orally Once a day for 5 days Oct, Active Stiolto Respimat (1 source) Stiolto Respimat Active Problems Problem Classification Problem Date Documented Da te Episodic/Chronic Chronic obstructive pulmonary disease and bronchiectasis (5 sources) Acute exacerbation of chronic obstructive airways disease; Translations: [Chronic obstructive pulmonary disease with (acute) exacerbation] Onset: 11-21-2017 Chronic Essential hypertension (4 sources) Essential hypertension; Translations: [Essential (primary) hypertension] 03-09-2024 Chronic Other lower respiratory disease (1 source) Pulmonary edema; Translations: [Chronic pulmonary edema] 11-08-2024 Chronic Other non-traumatic joint disorders (4 sources) Pain in left knee; Translations: [PAIN IN LEFT KNEE] Onset: 07-23-2022 Episodic Respiratory failure; insufficiency; arrest (adult) (1 source) [id number] respiratory failure; Translations: [Acute and chronic respiratory failure, unspecified whether with hypoxia or hypercapnia] 11-08-2024 Chronic Viral infection (1 source) Disease caused by 2019-nCoV; Translations: [COVID-19] 11-08-2024 Episodic Results Test Name Value Interpretation Reference Range Facility Basophils Auto (Bld) [#/Vol] on 10-31-2024 Basophils (Bld) [#/Vol] Automated basophil count 0.0-0.1 [facility] Basophils/100 WBC Auto (Bld) on 10-31-2024 Basophils/100 WBC (Bld) Automated basophil % 0.2-2.0 [facility] Eosinophils/100 WBC Auto (Bl d)on 10-31-2024 Eosinophils/100 WBC (Bld) Automated eosinophil % Low 0.9-7.0 [facility] Erythrocyte distribution wid th Auto (RBC) [Ratio]on 10-31-2024 Erythrocyte distribution width (RBC) [Ratio] Erythrocyte distribution width [Ratio] by Automated count 11.0-15.0 [facility] Estimated glomerular filtrat ion rate (GFR) non- Americanon 10-31-2024 GFR/1.73 sq M.predicted among non-blacks MDRD (S/P/Bld) [Vol rate/Area] Estimated glomerular filtration rate (GFR) non- >=60 mL/min/1.73m 2 [facility] Globulin Calc (S) [Mass/Vol] on 10-31-2024 Globulin (S) [Mass/Vol] Serum globulin measurement by calculation (mass/volume) [facility] Hematocrit Auto (Bld) [Volum e fraction]on 10-31-2024 Hematocrit (Bld) [Volume fraction] Hematocrit [Volume Fraction] of Blood by Automated count Low 36.0-48.0 [facility] Hemoglobin [Mass/volume] in Bloodon 10-31-2024 Hemoglobin (Bld) [Mass/Vol] Hemoglobin [Mass/volume] in Blood Low 12.0-16.0 [facility] Laboratory - Chemistry and C hemistry - challengeon 10-31-2024 Albumin [Mass/Vol] 2.8 g/dL Low 3.4-5.[address] [facility] ALP [Catalytic activity/Vol] 55 U/L 46-116 [facility] ALT [Catalytic activity/Vol] 15 U/L 14-59 [facility] AST [Catalytic activity/Vol] 17 U/L 15-37 [facility] Bilirubin [Mass/Vol] 0.2 mg/dL 0.2-1.0 [facility] Calcium [Mass/Vol] 9.7 mg/dL 8.5-10.[address] [facility] Chloride [Moles/Vol] 100 mmol/L 98-107 [facility] CO2 [Moles/Vol] 50.5 mmol/L High 21.0-32.0 [facility] Creatinine [Mass/Vol] 0.91 mg/dL 0.55-1.[address] [facility] GFR/1.73 sq M.predicted MDRD (S/P/Bld) [Vol rate/Area] mL/min/{1.73_m2} >=60 mL/min/1.73m 2 [facility] Glucose [Mass/Vol] 122 mg/dL High 74-[address] [facility] Potassium [Moles/Vol] 4.2 mmol/L 3.5-5.[address] [facility] Protein [Mass/Vol] 6.8 g/dL 6.4-8.[address] [facility] Sodium [Moles/Vol] 147 mmol/L High 136-[address] [facility] Urea nitrogen [Mass/Vol] 31.0 mg/dL High 7.0-18.0 [facility] Urea nitrogen/Creatinine [Mass ratio] 34.1 mg/mg [facility] Laboratory - Hematology and Cell countson 10-31-2024 Immature granulocytes/100 WBC (Bld) 4.7 % High 0.0-0.5 [facility] Leukocytes [#/volume] correc immanuel for nucleated erythrocytes in Blood by Automated counon 10-31-2024 WBC corrected for nucl RBC Auto (Bld) [#/Vol] Leukocytes [#/volume] corrected for nucleated erythrocytes in Blood by Automated coun 4.0-11.0 [facility] Lymphocytes Auto (Bld) [#/Vo l]on 10-31-2024 Lymphocytes (Bld) [#/Vol] Lymphocytes [#/volume] in Blood by Automated count Low 1.2-3.8 [facility] Lymphocytes/100 WBC Auto (Bl d)on 10-31-2024 Lymphocytes/100 WBC (Bld) Lymphocytes/100 leukocytes in Blood by Automated count Low 20.5-60.0 [facility] MCH Auto (RBC) [Entitic mass ]on 10-31-2024 MCH (RBC) [Entitic mass] MCH [Entitic mass] by Automated count 26.7-34.0 [facility] MCHC Auto (RBC) [Mass/Vol]on 10-31-2024 MCHC (RBC) [Mass/Vol] MCHC [Mass/volume] by Automated count Low 29.9-35.2 [facility] MCV Auto (RBC) [Entitic vol] on 10-31-2024 MCV (RBC) [Entitic vol] MCV [Entitic volume] by Automated count High 81.0-99.0 [facility] Monocytes Auto (Bld) [#/Vol] on 10-31-2024 Monocytes (Bld) [#/Vol] Automated blood monocyte count 0.3-0.8 [facility] Monocytes/100 WBC Auto (Bld) on 10-31-2024 Monocytes/100 WBC (Bld) Automated monocyte % 1.7-12.0 [facility] Neutrophils Auto (Bld) [#/Vo l]on 10-31-2024 Neutrophils (Bld) [#/Vol] Neutrophils [#/volume] in Blood by Automated count High 1.4-6.5 [facility] Neutrophils/100 WBC Auto (Bl d)on 10-31-2024 Neutrophils/100 WBC (Bld) Automated neutrophil % High 43.0-75.0 [facility] No Panel Informationon 10-31 Eosinophils # (Auto) 0.0 10 3/uL 0.0-0.[address] [facility] Immature Granulocyte # (Auto) 0.44 10 3/uL High 0.00-0.03 [facility] Platelet mean volume Auto (B ld) [Entitic vol]on 10-31-2024 Platelet mean volume (Bld) [Entitic vol] Platelet mean volume [Entitic volume] in Blood by Automated count Low 9.5-13.5 [facility] Platelets Auto (Bld) [#/Vol] on 10-31-2024 Platelets (Bld) [#/Vol] Platelets [#/volume] in Blood by Automated count 150-450 [facility] RBC Auto (Bld) [#/Vol]on RBC (Bld) [#/Vol] Erythrocytes [#/volume] in Blood by Automated count Low 4.20-5.40 [facility] Serum or plasma albumin/glob ulin mass ratioon 10-31-2024 Albumin/Globulin [Mass ratio] Serum or plasma albumin/globulin mass ratio [facility] Serum or plasma anion gap de terminationon 10-31-2024 Anion gap [Moles/Vol] Serum or plasma an ion gap determination [facility] Basophils Auto (Bld) [#/Vol] on 10-30-2024 Basophils (Bld) [#/Vol] Automated basophil count 0.0-0.1 [facility] Basophils/100 WBC Auto (Bld) on 10-30-2024 Basophils/100 WBC (Bld) Automated basophil % Low 0.2-2.0 [facility] Eosinophils/100 WBC Auto (Bl d)on 10-30-2024 Eosinophils/100 WBC (Bld) Automated eosinophil % Low 0.9-7.0 [facility] Erythrocyte distribution wid th Auto (RBC) [Ratio]on 10-30-2024 Erythrocyte distribution width (RBC) [Ratio] Erythrocyte distribution width [Ratio] by Automated count 11.0-15.0 [facility] Estimated glomerular filtrat ion rate (GFR) non- Americanon 10-30-2024 GFR/1.73 sq M.predicted among non-blacks MDRD (S/P/Bld) [Vol rate/Area] Estimated glomerular filtration rate (GFR) non- Low >=60 mL/min/1.73m 2 [facility] Globulin Calc (S) [Mass/Vol] on 10-30-2024 Globulin (S) [Mass/Vol] Serum globulin measurement by calculation (mass/volume) [facility] Hematocrit Auto (Bld) [Volum e fraction]on 10-30-2024 Hematocrit (Bld) [Volume fraction] Hematocrit [Volume Fraction] of Blood by Automated count Low 36.0-48.0 [facility] Hemoglobin [Mass/volume] in Bloodon 10-30-2024 Hemoglobin (Bld) [Mass/Vol] Hemoglobin [Mass/volume] in Blood Low 12.0-16.0 [facility] Laboratory - Chemistry and C hemistry - challengeon 10-30-2024 Albumin [Mass/Vol] 2.8 g/dL Low 3.4-5.[address] [facility] ALP [Catalytic activity/Vol] 57 U/L 46-116 [facility] ALT [Catalytic activity/Vol] 17 U/L 14-59 [facility] AST [Catalytic activity/Vol] 19 U/L 15-37 [facility] Bilirubin [Mass/Vol] 0.2 mg/dL 0.2-1.0 [facility] Calcium [Mass/Vol] 9.3 mg/dL 8.5-10.[address] [facility] Chloride [Moles/Vol] 100 mmol/L 98-107 [facility] CO2 [Moles/Vol] 49.9 mmol/L High 21.0-32.0 [facility] Creatinine [Mass/Vol] 0.94 mg/dL 0.55-1.[address] [facility] GFR/1.73 sq M.predicted MDRD (S/P/Bld) [Vol rate/Area] mL/min/{1.73_m2} >=60 mL/min/1.73m 2 [facility] Glucose [Mass/Vol] 112 mg/dL High 74-[address] [facility] Natriuretic peptide B (Bld) [Mass/Vol] 306.0 pg/mL <=1800.0 [facility] Potassium [Moles/Vol] 3.7 mmol/L 3.5-5.[address] [facility] Protein [Mass/Vol] 6.8 g/dL 6.4-8.[address] [facility] Sodium [Moles/Vol] 149 mmol/L High 136-[address] [facility] Urea nitrogen [Mass/Vol] 27.0 mg/dL High 7.0-18.0 [facility] Urea nitrogen/Creatinine [Mass ratio] 28.7 mg/mg [facility] Laboratory - Hematology and Cell countson 10-30-2024 Immature granulocytes/100 WBC (Bld) 1.1 % High 0.0-0.5 [facility] Leukocytes [#/volume] correc immanuel for nucleated erythrocytes in Blood by Automated counon 10-30-2024 WBC corrected for nucl RBC Auto (Bld) [#/Vol] Leukocytes [#/volume] corrected for nucleated erythrocytes in Blood by Automated coun 4.0-11.0 [facility] Lymphocytes Auto (Bld) [#/Vo l]on 10-30-2024 Lymphocytes (Bld) [#/Vol] Lymphocytes [#/volume] in Blood by Automated count Low 1.2-3.8 [facility] Lymphocytes/100 WBC Auto (Bl d)on 10-30-2024 Lymphocytes/100 WBC (Bld) Lymphocytes/100 leukocytes in Blood by Automated count Low 20.5-60.0 [facility] MCH Auto (RBC) [Entitic mass ]on 10-30-2024 MCH (RBC) [Entitic mass] MCH [Entitic mass] by Automated count 26.7-34.0 [facility] MCHC Auto (RBC) [Mass/Vol]on 10-30-2024 MCHC (RBC) [Mass/Vol] MCHC [Mass/volume] by Automated count Low 29.9-35.2 [facility] MCV Auto (RBC) [Entitic vol] on 10-30-2024 MCV (RBC) [Entitic vol] MCV [Entitic volume] by Automated count High 81.0-99.0 [facility] Monocytes Auto (Bld) [#/Vol] on 10-30-2024 Monocytes (Bld) [#/Vol] Automated blood monocyte count High 0.3-0.8 [facility] Monocytes/100 WBC Auto (Bld) on 10-30-2024 Monocytes/100 WBC (Bld) Automated monocyte % 1.7-12.0 [facility] Neutrophils Auto (Bld) [#/Vo l]on 10-30-2024 Neutrophils (Bld) [#/Vol] Neutrophils [#/volume] in Blood by Automated count High 1.4-6.5 [facility] Neutrophils/100 WBC Auto (Bl d)on 10-30-2024 Neutrophils/100 WBC (Bld) Automated neutrophil % High 43.0-75.0 [facility] No Panel Informationon 10-30 Troponin I High Sensitivity 17.9 pg/mL 4.0-51.3 [facility] Comment on above: CUT-OFF POINTS HAVE BEEN ESTABLISHED BASED ON THE FOURTHUNIVERSAL DEFINITION OF MYOCARDIAL INFARCTION. THE UPPERREFERENCE LIMIT (URL) OF TROPONIN, DEFINED THE 99THPERCENTILE OF cTnI DISTRIBUTION IN A REFERENCE POPULATION,HAS BEEN CONFIRMED THE DECISION THRESHOLD FOR MIDIAGNOSIS.99TH PERCENTILE = 51.4 PG/MLNOTE: HIGH-SENSITIVITY TROPONIN ASSAY IS NOT INTENDED TO BEUSED IN ISOLATION BUT SHOULD BE INTERPRETED IN CONJUNCTIONWITH OTHER DIAGNOSTIC AND CLINICAL INFORMATION. Eosinophils # (Auto) 0.0 10 3/uL 0.0-0.[address] [facility] Immature Granulocyte # (Auto) 0.12 10 3/uL High 0.00-0.03 [facility] Platelet mean volume Auto (B ld) [Entitic vol]on 10-30-2024 Platelet mean volume (Bld) [Entitic vol] Platelet mean volume [Entitic volume] in Blood by Automated count Low 9.5-13.5 [facility] Platelets Auto (Bld) [#/Vol] on 10-30-2024 Platelets (Bld) [#/Vol] Platelets [#/volume] in Blood by Automated count 150-450 [facility] RBC Auto (Bld) [#/Vol]on RBC (Bld) [#/Vol] Erythrocytes [#/volume] in Blood by Automated count Low 4.20-5.40 [facility] Serum or plasma albumin/glob ulin mass ratioon 10-30-2024 Albumin/Globulin [Mass ratio] Serum or plasma albumin/globulin mass ratio [facility] Serum or plasma anion gap de terminationon 10-30-2024 Anion gap [Moles/Vol] Serum or plasma an ion gap determination [facility] Basophils Auto (Bld) [#/Vol] on 10-29-2024 Basophils (Bld) [#/Vol] Automated basophil count 0.0-0.1 [facility] Basophils/100 WBC Auto (Bld) on 10-29-2024 Basophils/100 WBC (Bld) Automated basophil % Low 0.2-2.0 [facility] Eosinophils/100 WBC Auto (Bl d)on 10-29-2024 Eosinophils/100 WBC (Bld) Automated eosinophil % Low 0.9-7.0 [facility] Erythrocyte distribution wid th Auto (RBC) [Ratio]on 10-29-2024 Erythrocyte distribution width (RBC) [Ratio] Erythrocyte distribution width [Ratio] by Automated count 11.0-15.0 [facility] Estimated glomerular filtrat ion rate (GFR) non- Americanon 10-29-2024 GFR/1.73 sq M.predicted among non-blacks MDRD (S/P/Bld) [Vol rate/Area] Estimated glomerular filtration rate (GFR) non- Low >=60 mL/min/1.73m 2 [facility] Globulin Calc (S) [Mass/Vol] on 10-29-2024 Globulin (S) [Mass/Vol] Serum globulin measurement by calculation (mass/volume) [facility] Hematocrit Auto (Bld) [Volum e fraction]on 10-29-2024 Hematocrit (Bld) [Volume fraction] Hematocrit [Volume Fraction] of Blood by Automated count Low 36.0-48.0 [facility] Hemoglobin [Mass/volume] in Bloodon 10-29-2024 Hemoglobin (Bld) [Mass/Vol] Hemoglobin [Mass/volume] in Blood Low 12.0-16.0 [facility] Laboratory - Chemistry and C hemistry - challengeon 10-29-2024 Albumin [Mass/Vol] 2.8 g/dL Low 3.4-5.[address] [facility] ALP [Catalytic activity/Vol] 70 U/L 46-116 [facility] ALT [Catalytic activity/Vol] 17 U/L 14-59 [facility] AST [Catalytic activity/Vol] 16 U/L 15-37 [facility] Bilirubin [Mass/Vol] 0.2 mg/dL 0.2-1.0 [facility] Bilirubin.direct [Mass/Vol] 0.1 mg/dL 0.0-0.2 [facility] Calcium [Mass/Vol] 9.4 mg/dL 8.5-10.[address] [facility] Chloride [Moles/Vol] 98 mmol/L 98-107 [facility] CO2 [Moles/Vol] 49.3 mmol/L High 21.0-32.0 [facility] Creatinine [Mass/Vol] 1.01 mg/dL 0.55-1.[address] [facility] GFR/1.73 sq M.predicted MDRD (S/P/Bld) [Vol rate/Area] mL/min/{1.73_m2} >=60 mL/min/1.73m 2 [facility] Glucose [Mass/Vol] 134 mg/dL High 74-[address] [facility] Natriuretic peptide B (Bld) [Mass/Vol] 483.0 pg/mL <=1800.0 [facility] Potassium [Moles/Vol] 4.0 mmol/L 3.5-5.[address] [facility] Protein [Mass/Vol] 7.6 g/dL 6.4-8.[address] [facility] Sodium [Moles/Vol] 147 mmol/L High 136-[address] [facility] Urea nitrogen [Mass/Vol] 21.0 mg/dL High 7.0-18.0 [facility] Urea nitrogen/Creatinine [Mass ratio] 20.8 mg/mg [facility] Laboratory - Hematology and Cell countson 10-29-2024 Immature granulocytes/100 WBC (Bld) 1.2 % High 0.0-0.5 [facility] Leukocytes [#/volume] correc immanuel for nucleated erythrocytes in Blood by Automated counon 10-29-2024 WBC corrected for nucl RBC Auto (Bld) [#/Vol] Leukocytes [#/volume] corrected for nucleated erythrocytes in Blood by Automated coun 4.0-11.0 [facility] Lymphocytes Auto (Bld) [#/Vo l]on 10-29-2024 Lymphocytes (Bld) [#/Vol] Lymphocytes [#/volume] in Blood by Automated count Low 1.2-3.8 [facility] Lymphocytes/100 WBC Auto (Bl d)on 10-29-2024 Lymphocytes/100 WBC (Bld) Lymphocytes/100 leukocytes in Blood by Automated count Low 20.5-60.0 [facility] MCH Auto (RBC) [Entitic mass ]on 10-29-2024 MCH (RBC) [Entitic mass] MCH [Entitic mass] by Automated count 26.7-34.0 [facility] MCHC Auto (RBC) [Mass/Vol]on 10-29-2024 MCHC (RBC) [Mass/Vol] MCHC [Mass/volume] by Automated count Low 29.9-35.2 [facility] MCV Auto (RBC) [Entitic vol] on 10-29-2024 MCV (RBC) [Entitic vol] MCV [Entitic volume] by Automated count High 81.0-99.0 [facility] Monocytes Auto (Bld) [#/Vol] on 10-29-2024 Monocytes (Bld) [#/Vol] Automated blood monocyte count 0.3-0.8 [facility] Monocytes/100 WBC Auto (Bld) on 10-29-2024 Monocytes/100 WBC (Bld) Automated monocyte % 1.7-12.0 [facility] Neutrophils Auto (Bld) [#/Vo l]on 10-29-2024 Neutrophils (Bld) [#/Vol] Neutrophils [#/volume] in Blood by Automated count High 1.4-6.5 [facility] Neutrophils/100 WBC Auto (Bl d)on 10-29-2024 Neutrophils/100 WBC (Bld) Automated neutrophil % High 43.0-75.0 [facility] No Panel Informationon 10-29 Eosinophils # (Auto) 0.0 10 3/uL 0.0-0.[address] [facility] Immature Granulocyte # (Auto) 0.12 10 3/uL High 0.00-0.03 [facility] Troponin I High Sensitivity 18.8 pg/mL 4.0-51.3 [facility] Comment on above: CUT-OFF POINTS HAVE BEEN ESTABLISHED BASED ON THE FOURTHUNIVERSAL DEFINITION OF MYOCARDIAL INFARCTION. THE UPPERREFERENCE LIMIT (URL) OF TROPONIN, DEFINED THE 99THPERCENTILE OF cTnI DISTRIBUTION IN A REFERENCE POPULATION,HAS BEEN CONFIRMED THE DECISION THRESHOLD FOR MIDIAGNOSIS.99TH PERCENTILE = 51.4 PG/MLNOTE: HIGH-SENSITIVITY TROPONIN ASSAY IS NOT INTENDED TO BEUSED IN ISOLATION BUT SHOULD BE INTERPRETED IN CONJUNCTIONWITH OTHER DIAGNOSTIC AND CLINICAL INFORMATION. Venous Blood Partial Pressure CO2 85.6 mm[Hg] Critically high 40.0-52.0 [facility] Comment on above: RESULTS CALLED TO KATIANA NUNEZ RN at 0539 Venous Blood pH 7.385 7.330-7.430 [facility] Platelet mean volume Auto (B ld) [Entitic vol]on 10-29-2024 Platelet mean volume (Bld) [Entitic vol] Platelet mean volume [Entitic volume] in Blood by Automated count Low 9.5-13.5 [facility] Platelets Auto (Bld) [#/Vol] on 10-29-2024 Platelets (Bld) [#/Vol] Platelets [#/volume] in Blood by Automated count 150-450 [facility] RBC Auto (Bld) [#/Vol]on RBC (Bld) [#/Vol] Erythrocytes [#/volume] in Blood by Automated count Low 4.20-5.40 [facility] Serum or plasma albumin/glob ulin mass ratioon 10-29-2024 Albumin/Globulin [Mass ratio] Serum or plasma albumin/globulin mass ratio [facility] Serum or plasma anion gap de terminationon 10-29-2024 Anion gap [Moles/Vol] Serum or plasma an ion gap determination [facility] Basophils/100 WBC Manual cnt (Bld)on 10-28-2024 Basophils/100 WBC (Bld) Basophils/100 leukocytes in Blood by Manual count Low 0.2-2.0 [facility] Blood Cultureon 10-28-2024 Bacteria identified Cx Nom (Bld) Gram Stain Gram Positive Cocci in Clusters ORGANISM: Staphylococcus sp coag neg (O:STACN) Aerobic TOBY Charge (PCMIC38) --- SUSCEPTIBILITY -- ORGANISM: O:STACN ANTIBIOTIC INTERPRETATION TOBY Azithromycin S <2 Ciprofloxacin S <1 Daptomycin S <0.5 Levofloxacin S <1 Linezolid S <1 Oxacillin S <0.25 Penicillin S <0.03 Tetracycline S <4 Trimethoprim/Sulfameth oxazole S <0.5 Vancomycin S 1 S = SUSCEPTIBLE I = INTERMEDIATE R = RESISTANT BLANK = DATA NOT AVAILABLE, OR DRUG NOT ADVISABLE OR TESTED R* = RESISTANCE DUE TO EXTENDED SPECTRUM BETA-LACTAMASES ESBL = EXTENDED SPECTRUM BETA-LACTAMASE TFG = THYMIDINE-DEPENDENT STRAIN LAURA = BETA-LACTAMASE POSITIVE IB = INDUCIBLE BETA-LACTAMASE. APPEARS IN PLACE OF 'S' WITH SPECIES KNOWN TO POSSESS INDUCIBLE BETA-LACTAMASES. POTENTIALLY THEY MAY BECOME RESISTANT TO ALL B-LACTAM DRUGS. PERFORMED BY: [place] [address] PATHOLOGIST MAILING JOGGER SAPPHIRE MCCULLOUGH M.D. Normal [facility] Comment on above: Performed By: #### C UBLD #### [address] Eosinophils/100 WBC Manual c nt (Bld)on 10-28-2024 Eosinophils/100 WBC (Bld) Eosinophils/100 leukocytes in Blood by Manual count Low 0.9-7.0 [facility] Erythrocyte distribution wid th Auto (RBC) [Ratio]on 10-28-2024 Erythrocyte distribution width (RBC) [Ratio] Erythrocyte distribution width [Ratio] by Automated count 11.0-15.0 [facility] Estimated glomerular filtrat ion rate (GFR) non- Americanon 10-28-2024 GFR/1.73 sq M.predicted among non-blacks MDRD (S/P/Bld) [Vol rate/Area] Estimated glomerular filtration rate (GFR) non- >=60 mL/min/1.73m 2 [facility] Hematocrit Auto (Bld) [Volum e fraction]on 10-28-2024 Hematocrit (Bld) [Volume fraction] Hematocrit [Volume Fraction] of Blood by Automated count Low 36.0-48.0 [facility] Hemoglobin [Mass/volume] in Bloodon 10-28-2024 Hemoglobin (Bld) [Mass/Vol] Hemoglobin [Mass/volume] in Blood Low 12.0-16.0 [facility] Laboratory - Chemistry and C hemistry - challengeon 10-28-2024 HCO3 (Bld) [Moles/Vol] 51.0 mmol/L High 22.0-26.0 [facility] Bilirubin Ql (U) Negative NEGATIVE [facility] Glucose (U) [Mass/Vol] Negative NEGATIVE [facility] Ketones Ql (U) Negative NEGATIVE [facility] pH (U) 8.0 [pH] 5.0-9.0 [facility] Specific gravity (U) [Rel density] 1.015 1.005-1.025 [facility] Urobilinogen Qn (U) 0.2 {Cecil'U}/dL 0.2-1.0 [facility] Natriuretic peptide B (Bld) [Mass/Vol] 425.0 pg/mL <=1800.0 [facility] Calcium [Mass/Vol] 9.4 mg/dL 8.5-10.[address] [facility] Chloride [Moles/Vol] 100 mmol/L 98-107 [facility] CO2 [Moles/Vol] 44.6 mmol/L High 21.0-32.0 [facility] Creatinine [Mass/Vol] 0.89 mg/dL 0.55-1.[address] [facility] GFR/1.73 sq M.predicted MDRD (S/P/Bld) [Vol rate/Area] mL/min/{1.73_m2} >=60 mL/min/1.73m 2 [facility] Glucose [Mass/Vol] 132 mg/dL High 74-[address] [facility] Lactate [Moles/Vol] 0.8 mmol/L 0.4-2.0 [facility] Potassium [Moles/Vol] 3.8 mmol/L 3.5-5.[address] [facility] Sodium [Moles/Vol] 146 mmol/L High 136-[address] [facility] Urea nitrogen [Mass/Vol] 20.0 mg/dL High 7.0-18.0 [facility] Urea nitrogen/Creatinine [Mass ratio] 22.5 mg/mg [facility] Laboratory - Hematology and Cell countson 10-28-2024 Lymphocytes/100 WBC (Bld) 8.0 % Low 20.5-60.0 [facility] Monocytes/100 WBC (Bld) 8.0 % 1.7-12.0 [facility] Laboratory - Microbiology an d Antimicrobial susceptibilityon 10-28-2024 SARS-CoV-2 (COVID-19) RNA JOSE A+probe Ql (Unsp spec) Positive Abnormal NEGATIVE [facility] Comment on above: This test has not be en FDA cleared or approved, but has beenauthorized by the FDA under an Emergency Use Authorization(EUA) for use by authorized laboratories certified underIA that meet the requirements to perform moderate or highcomplexity testing. This test has been authorized only forthe detection of proteins from SARS-CoV-2, not for any otherviruses or pathogens. The emergency use of this test isauthorized for the duration of the declaration thatcircumstances exist justifying the authorization ofemergency use of in vitro diagnostic tests for detectionand/or diagnosis of Covid-19 under section 564(b)(1) of theAct, 21 U.S.C. 360bbb-3(b)(1), unless the declaration isterminated or authorization is revoked sooner. Laboratory - Specimen inform ationon 10-28-2024 Appearance (U) CLEAR CLEAR [facility] Color (U) LT. YELLOW YELLOW [facility] Laboratory - Urinalysison Leukocyte esterase Test strip Ql (U) Negative NEGATIVE [facility] Mucus Ql (Urine sed) NONE SEEN NONE SEEN [facility] Nitrite Ql (U) Negative NEGATIVE [facility] Protein Ql (U) Negative NEG/TRACE [facility] Leukocytes [#/volume] correc immanuel for nucleated erythrocytes in Blood by Automated counon 10-28-2024 WBC corrected for nucl RBC Auto (Bld) [#/Vol] Leukocytes [#/volume] corrected for nucleated erythrocytes in Blood by Automated coun High 4.0-11.0 [facility] MCH Auto (RBC) [Entitic mass ]on 10-28-2024 MCH (RBC) [Entitic mass] MCH [Entitic mass] by Automated count 26.7-34.0 [facility] MCHC Auto (RBC) [Mass/Vol]on 10-28-2024 MCHC (RBC) [Mass/Vol] MCHC [Mass/volume] by Automated count 29.9-35.2 [facility] MCV Auto (RBC) [Entitic vol] on 10-28-2024 MCV (RBC) [Entitic vol] MCV [Entitic volume] by Automated count High 81.0-99.0 [facility] No Panel Informationon 10-28 Pepe Test Positive POSITIVE [facility] Arterial Blood Base Excess 25.6 mmol/L High <2.0-2.0 [facility] Arterial Blood Oxygen Saturation 97.1 % [facility] Arterial Blood Partial Pressure CO2 89.4 mm[Hg] Critically high 35.0-45.0 [facility] Comment on above: RESULTS CALLED TO BRADLEY BERMEO(RN) IN ICU Arterial Blood Partial Pressure O2 81.6 mm[Hg] 80.0-100.0 [facility] Arterial Blood pH 7.364 7.350-7.[address] [facility] Blood Gas Mode BiPAP 11/06 [facility] Blood Gas Sample Site LEFT RADIAL [facility] Blood Gas Set Respiration Rate 16 [facility] FiO2 40 % [facility] Oxygen Delivery Device BIPAP [facility] Urine Bacteria NONE SEEN #/HPF NONE SEEN [facility] Urine Culture Reflexed NO [facility] Urine Occult Blood Negative NEGATIVE [facility] Urine Other Casts NONE SEEN #/LPF NONE SEEN [facility] Urine Other Crystals None Seen #/HPF None Seen [facility] Urine RBC NONE SEEN #/HPF 0-2 [facility] Urine Squamous Epithelial Cells RARE #/LPF NONE/RARE [facility] Urine WBC NONE SEEN #/HPF NONE SEEN [facility] Blood Gas Liter Flow 6 [facility] Absolute Basophils (Manual) 0.00 10 3/uL 0.00-0.10 [facility] Bedside Influenza Type A Antigen Negative [facility] Comment on above: Negative for Flu A p rotein antigen. Infection due to Flu Acannot be ruled out. Flu A antigen in the sample may bebelow the detection limit of the test. Bedside Influenza Type B Antigen Negative [facility] Comment on above: Negative for Flu B p rotein antigen. Infection due to Flu Bcannot be ruled out. Flu B antigen in the sample may bebelow the detection limit of the test. Eosinophils # (Manual) 0.00 10 3/uL 0.00-0.70 [facility] Lymphocytes # (Manual) 1.04 10 3/uL Low 1.20-3.80 [facility] Monocytes # (Manual) 1.04 10 3/uL High 0.30-0.[address] [facility] Segmented Neutrophils # (Manual) 10.92 10 3/uL High 1.4-6.5 [facility] Troponin I High Sensitivity 27.3 pg/mL 4.0-51.3 [facility] Comment on above: CUT-OFF POINTS HAVE BEEN ESTABLISHED BASED ON THE FOURTHUNIVERSAL DEFINITION OF MYOCARDIAL INFARCTION. THE UPPERREFERENCE LIMIT (URL) OF TROPONIN, DEFINED THE 99THPERCENTILE OF cTnI DISTRIBUTION IN A REFERENCE POPULATION,HAS BEEN CONFIRMED THE DECISION THRESHOLD FOR MIDIAGNOSIS.99TH PERCENTILE = 51.4 PG/MLNOTE: HIGH-SENSITIVITY TROPONIN ASSAY IS NOT INTENDED TO BEUSED IN ISOLATION BUT SHOULD BE INTERPRETED IN CONJUNCTIONWITH OTHER DIAGNOSTIC AND CLINICAL INFORMATION. Platelet mean volume Auto (B ld) [Entitic vol]on 10-28-2024 Platelet mean volume (Bld) [Entitic vol] Platelet mean volume [Entitic volume] in Blood by Automated count Low 9.5-13.5 [facility] Platelets Auto (Bld) [#/Vol] on 10-28-2024 Platelets (Bld) [#/Vol] Platelets [#/volume] in Blood by Automated count 150-450 [facility] RBC Auto (Bld) [#/Vol]on RBC (Bld) [#/Vol] Erythrocytes [#/volume] in Blood by Automated count Low 4.20-5.40 [facility] Segmented neutrophils/100 WB C Manual cnt (Bld)on 10-28-2024 Segmented neutrophils/100 WBC (Bld) Manual blood segmented neutrophils/100 leukocytes High 43.0-75.0 [facility] Serum or plasma anion gap de terminationon 10-28-2024 Anion gap [Moles/Vol] Serum or plasma an ion gap determination [facility] Vital Signs Date Time Vital Sign Value Performing Clinician Faci lity 04-26-2025 09:30-0400 Body height 160.02 cm Paulina Jaems MD Work Phone: [facility] 04-26-2025 09:30-0400 Body mass index (BMI) [Ratio] 36.8 kg/m2 Paulina James MD Work Phone: [facility] 04-26-2025 09:30-0400 Body weight 94.34 kg Paulina James MD Work Phone: [facility] 04-26-2025 09:30-0400 Diastolic blood pressure 60 mm[Hg] Paulina James MD Work Phone: [facility] 04-26-2025 09:30-0400 Heart rate 88 /min Paulina James MD Work Phone: [facility] 04-26-2025 09:30-0400 Respiratory rate 14 /min Paulina James MD Work Phone: [facility] 04-26-2025 09:30-0400 SaO2% (BldA) [Mass fraction] 91 % Paulina James MD Work Phone: [facility] 04-26-2025 09:30-0400 Systolic blood pressure 142 mm[Hg] Paulina James MD Work Phone: [facility] 11-08-2024 14:03-0500 Body height 160.02 cm [facility] 11-08-2024 14:03-0500 Body mass index (BMI) [Ratio] 36.3 kg/m2 [facility] 11-08-2024 14:03-0500 Body temperature 98.2 [degF] [facility] 11-08-2024 14:03-0500 Body weight 92.98 kg [facility] 11-08-2024 14:03-0500 Diastolic blood pressure 71 mm[Hg] [facility] 11-08-2024 14:03-0500 Heart rate 93 /min [facility] 11-08-2024 14:03-0500 SaO2% (BldA) [Mass fraction] 89 % [facility] 11-08-2024 14:03-0500 Systolic blood pressure 127 mm[Hg] [facility] Encounters Encounter Date Encounter Type Care Provider Facility Start: 04-26-2025 End: 04-26-2025 ambulatory Paulina James MD Work Phone: [facility] Work Phone: Start: 04-26-2025 End: 04-26-2025 Patient encounter procedure Paulina James MD -[facility] Work Phone: Start: 11-08-2024 End: 11-08-2024 ambulatory [facility] Work Phone: Start: 11-08-2024 End: 11-08-2024 Patient encounter procedure [facility] Work Phone: Start: 11-01-2024 Non-patient / Non-visit [facility] Work Phone: Start: 10-31-2024 Non-patient / Non-visit [facility] Work Phone: Start: 10-30-2024 Non-patient / Non-visit [facility] Work Phone: Start: 10-29-2024 Non-patient / Non-visit [facility] Work Phone: Start: 10-28-2024 End: 10-28-2024 ambulatory Keegan Coles [facility] Work Phone: Start: 10-28-2024 End: 10-28-2024 Departed Referred Keegan Coles [facility] Start: 10-28-2024 Non-patient / Non-visit [facility] Work Phone: Start: 11-22-2022 (Televisit) Televisit Paulina Jaramillo [facility] Start: 11-22-2022 End: 11-22-2022 ambulatory Paulina James Other [employer] Other Start: 07-23-2022 End: 07-24-[address] HESHAM HALE Facility: Plan of Treatment Date Care Activity Detail Author Start: 10-28-2024 Bacteria identified in Blood by Culture Blood Culture [facility] Start: 10-28-2024 [facility] Comprehensive metabo lic 2000 panel - Serum or Plasma [facility] Payers Date Payer Category Payer Self-pay 1957 Medicare [id number] 1957 Private Health Insurance [id number] 1945 Unknown [id number] Unknown [id number] Social History Date Type Detail Facility Sex Assigned At [facility] [employer] [place] Other Start: 03-09-2024 End: 03-09-2024 Tobacco smoking status NHIS Ex-smoker (finding) [facility] Start: 10-30-2024 End: 11-08-2024 Sex Female (finding) [facility] Start: 1945 Sex Assigned At Female F [facility] Evaluation note 11-22-2022 Note Date & Type Note Facility 11-22-2022 Evaluation note Encounter Date Diagnosis Assessment Notes Oct, COPD with exacerbation (ICD-10 - J44.1) Stefany understands to seek care through the ER if her symptoms worsen. She understands to contact Dr. Mireles if the cough continues. She states she is compliant with wearing her oxygen and using her controller and rescue medicines. [facility] [employer] [place] Other Clinical Note 07-23-2022 Note Date & Type Note Facility 07-23-2022 Note PROCEDURE: XR KNEE L T 4V or > COMPARISON: None. HISTORY: Pain of left knee joint FINDINGS: BONES:No acute fracture or dislocation. Mild to moderate compartment osteoarthrosis the most significant in the anterior compartment where there is marginal osteophyte formation. Mild narrowing of the medial joint space. SOFT TISSUES:Negative. No visible soft tissue swelling. EFFUSION:Trace suprapatellar joint effusion OTHER: Negative. IMPRESSION: Mild to moderate degenerative changes with small joint effusion Electronically authenticated by: HESHAM HALE Date: 2022-07-23 17:59 [facility] Evaluation note Note Date & Type Note Facility Evaluation note No assessment information availa ble [facility] Work Phone: Evaluation note Note Date & Type Note Facility Evaluation note Diagnosis Onset Date Resolution Essential (primary) hypertension acute April 26, 2025 10:07am [facility] Work Phone: Reason for referral (narrative) Note Date & Type Note Facility Reason for referral (narrative) No reason for referral information available [facility] Work Phone: Summary Purpose Family History No Family History Records FoundNo Family History Records Found Advance Directives Advance Directive Response Recorded Date/ Time Advance Directives No March 09 9:34am Advance Directive Response Recorded Date/ Time Advance Directives No March 09 10:34am Chief Complaint and Reason for Visit Chief Complaint Admit Date wellness April 26, 2025 10:07 am Reason for Visit Admit Date Essential (primary) hypertension April 10:07am Chief Complaint Admit Date Amb Documentation November 01, 2024 9: 30am [facility], Covid pnemonia November 08, 2024 1 :51pm Additional Source Comments INFORMATION SOURCE (unrecogn ized section and content) DATE CREATED AUTHOR 07/29/2022 [facility] DATE CREATED AUTHOR AUTHOR'S ORGANIZ ATION 11/06/2024 [facility] REASON FOR VISIT (unrecogniz ed section and content) cough Care Teams (unrecognized sec tion and content) Team Status: Active Member Role Status Dates Paulina James MD Primary Care Provider Active Team Status: Inactive Member Role Status Dates Paulina James MD Primary Care Provider Active Start: April 26, 2025 End: April 26, 2025 Paulina James MD Attending Provider Active St art: April 26, 2025 End: April 26, 2025 Team Status: Inactive Member Role Status Dates Keegan Coles DO Attending Provider Active S tart: October 28, 2024 End: October 28, 2024 Team Status: Active Member Role Status Dates Paulina James MD Primary Care Provider Active Team Status: Active Member Role Status Dates Paulina James MD Attending Provider Active St art: October 28, 2024 Team Status: Active Member Role Status Dates Paulina James MD Attending Provider Active St art: October 29, 2024 Team Status: Active Member Role Status Dates Paulina James MD Attending Provider Active St art: October 30, 2024 Team Status: Active Member Role Status Dates Paulina James MD Attending Provider Active St art: October 31, 2024 Team Status: Active Member Role Status Dates Gladys Duran CMA Attending Provider Active Start: November 01, 2024 Team Status: Inactive Member Role Status Dates Paulina James MD Primary Care Provide r, Attending Provider Active Start: November 08, 2024 End: November 08, 2024 Team Status: Inactive Member Role Status Dates Paulina James MD Primary Care Provider Active Start: April 26, 2025 End: April 26, 2025 Paulina James MD Attending Provider Active St art: April 26, 2025 End: April 26, 2025 Goals (unrecognized section and content) Goals may be documented in a n alternate section (unrecognized sect ion and content) No Status Records Found FOR RECORDS PERTAINING TO PATIENTS WHO ARE OR HAVE BEEN ENROLLED IN A CHEMICAL DEPENDENCY/SUBSTANCEABUSE PROGRAM, SOME INFORMATION MAY BE OMITTED. This clinical summary was aggregated from multiple sources. Caution should be exercised in using it in the provision of clinical care. This summary normalizes information from multiple sources, and as a consequence, information in this document may materially change the coding, format and clinical context of patient data. In addition, data may be omitted in some cases. CLINICAL DECISIONS SHOULD BE BASED ON THE PRIMARY CLINICAL RECORDS. [facility] [employer] provides no warranty or guarantee of the accuracy or completeness of information in this document.
== END 2025-08-02 17:58 | disposition home or self-care (01) ==
PROVIDERS: Emergency Provider Student in an Organized Health Care Education/Training Program; PCP Family Medicine
DX: J44.1 Chronic obstructive pulmonary disease with (acute) exacerbation (principal); R06.02 Shortness of breath; Z99.81 Dependence on supplemental oxygen; Z87.891 Personal history of nicotine dependence
CPT/HCPCS: 36415; 71046; 80048; 83735; 83880; 84484; 85007; 85027; 93005; 94640; 96374; 99285; J2919

== ENCOUNTER 2025-09-21 11:28 | Outpatient (OUT) | payer MEDICARE, OTHER, SELFPAY ==
--- OUTSIDE RECORDS SUMMARY | 2025-09-14 15:00 | XMS_ITS | Encounter Summary ---
Author Organization [facility] Address [address], [address] [place] [address] Care Team Providers Care Motor Transport Inspector Name Role Phone Paulina James MD Primary Care Provider [phone] Reason for Referral * Outpatient Service (Routine) - OpenSpecialtyDiagnoses / ProceduresReferred By ContactReferred To ContactCardiology Diagnoses Irregular heart rhythm Procedures EKG 12 lead Marcio Mireles DO [address] [place] [address] Phone: tel: fax: Referral IDStatusReasonStart DateExpiration DateVisits RequestedVisits [id number]/ Reason for Visit * ReasonCommentsFollow-upPatient presents for a follow up for a follow up for COPD. Patient states her breathing has worsened since her last visit. Patient is currently on 5L O2 at home. Patient complains of congestion and increased mucus production. Patient is using Stiolto daily. Encounter Details DateTypeDepartmentCare Team (Latest Contact Info)Hzjsqrzghsi31/19/2025 3:00 PM ESTOffice Visit [facility] [address] [place] [address] Marcio Mireles DO [address] [place] [phone] Centrilobular emphysema (Primary Dx); Chronic respiratory failure with hypoxia; Solitary pulmonary nodule; Irregular heart rhythm; Encounter for end of life care Social History Tobacco UseTypesPacks/DayYears UsedDateSmoking Tobacco: [id number] - 2010Smokeless Tobacco: Former Tobacco Cessation:Counseling Given: Yes Alcohol UseStandard Drinks/WeekCommentsYes0 (1 standard drink = 0.6 oz pure alcohol)AUDIT-CAnswerDate RecordedQ1: How often do you have a drink containing alcohol?Monthly or less09/14/2025Q2: How many drinks containing alcohol do you have on a typical day when you are drinking?1 or Q3: How often do you have six or more drinks on one occasion?Never09/14/2025CommentsUnknown Sex and Gender InformationValueDate RecordedSex Assigned at BirthNot on file Legal ScxJuyawy46/10/2013 11:49 AM ESTGender IdentityNot on fileSexual OrientationNot on fileOccupationIndustryJob Start DateJob End DateHealthcare aideNot on fileNot on fileNot on filedocumented as of this encounter Last Filed Vital Signs Vital SignReadingTime TakenCommentsBlood Xcfvhpbw581/8209/14/2025 3:01 PM EST Wylie474409/14/2025 3:01 PM QQWZqkhjftolnz46.2 ??C (97.1 ??F)09/14/2025 3:01 PM ESTRespiratory Cbkf1033 3:01 PM ESTOxygen Svlvlqmakb67%09/14/2025 3:01 PM EST5L X0Ibttttl Oxygen Concentration--Lwrbxu02.7 kg (200 lb)09/14/2025 3:01 PM ESTPatient vezaqvksTagomq769 cm (5' 3 )09/14/2025 3:01 PM ESTBody Mass Index 35.43111/14/2024 3:01 PM ESTdocumented in this encounter Functional Status * AUDIT-C ScoreAnswerDate of QfyhnsvgvaRvysvb332/19/2025 5:36 PM Marcio Causey DO * QuestionAnswerDate of AssessmentAuthorQ1: How often do you have a drink containing alcohol?Monthly or less09/14/2025 5:36 PM Marcio Causey DOQ2: How many drinks containing alcohol do you have on a typical day when you are drinking?1 or 5:36 PM Marcio Causey DOQ3: How often do you have six or more drinks on one occasion?Never09/14/2025 5:36 PM Marcio Causey DO documented as of this encounter Patient Instructions * Patient Instructions* Marcio Mireles DO - 09/14/2025 3:39 PM EST Get EKG done. We will let you know if it is okay. Once it is okay, you can start the azithromycin (Zithromax/ Z-Luis Eduardo ) 1 tablet once daily. Continue Stiolto. Continue prednisone to your preference. documented in this encounter Progress Notes * Marcio Mireles DO - 09/14/2025 3:17 PM EST Images from the original note were not included. Date of encounter: 09/14/25 Stefany Rios Evelyn 1945 (80 y.o.) [address] [facility] [address] Stefany Rios Evelyn was seen today in the office by me. Below is my assessment and plan of the patient: Assessment & Plan Centrilobular emphysema Prior treatment: Prednisone 5mg QD - BID; Stiolto > Anoro ; Ohtuvayre Patient's respiratory status continues to worsen, with a decrease in symptom control and increase in O2 requirements. Patient states she wants to feel better, but options are somewhat limited. I reviewed the following options with her: -Increase prednisone further to 20mg/day -Add an ICS on top of Stiolto (e.g. Qvar, Asmanex) -Restart Ohtuvayre -Order CBC to assess for eosinophils to see if she is a candidate for Dupixent or Nucala -Order PFT to qualify for pulmonary rehab, participate in pulmonary rehab and actually complete theprogram, and order CT chest to document stability or improvement in abnormal findings in order to even refer her to interventional pulmonology for endobronchial valves. -Start azithromycin 250 mg daily. I explained this would not improve her symptoms dramatically, butits anti-inflammatory effects could prevent future exacerbations. I would avoid Daliresp (Roflumilast) as it has a similar mechanism of action as Ohtuvayre, and one of the adverse effects is a changein mood/depression-she already feels depressed. I also discussed palliative care. I explained she has a chronic condition that I am not going to beable to cure. Palliative care would be an excellent adjunct to help body, mind, spirit. I did mention if she is just exhausted and ready to give up, hospice is an option, but I do not feel she is quite there yet. She voiced she is not ready for hospice either. After reviewing above, patient did not want to get a CT scan, nor did she want a participate in pulmonary rehabilitation, so there is no point in ordering a PFT. She did not feel that prednisone would improve her breathing that greatly. She voiced interest in azithromycin. I once again reviewed that it is not for antibiotic effect, but it does have anti-inflammatory properties. There is a potential for increased resistance to the macrolide class of antibiotics. There is also potential for QTc prolongation, so I have recommended a screening EKG to evaluate the QTc. The EKG will also assess forany arrhythmia, especially as I auscultated multiple missed beats on examination (see below). She will continue with Stiolto. I asked her what she wanted me to do with the prednisone, which sheis currently at 5mg/day. She said she would just complete her quantity and then stop it and see howshe does. She was encouraged to contact office if she begins having symptoms again. Orders: azithromycin (ZITHROMAX Z-LUIS EDUARDO) 250 MG tablet; Take 1 tablet by mouth daily albuterol sulfate HFA (PROVENTIL;VENTOLIN;PROAIR) 108 (90 Base) MCG/ACT inhaler; Inhale 2 puffs into the lungs every 4 hours as needed for Shortness of Breath tiotropium-olodaterol (STIOLTO RESPIMAT) 2.5-2.5 MCG/ACT AERS; Inhale 2 puffs into the lungs daily Chronic respiratory failure with hypoxia A sqri-sm-nnic encounter was performed with the patient today in order to document continued need for supplemental O2. -Flow & directions: Originally at 3L/min @ rest ane 4L/min with activity, now 4L/min @ rest and5L/min with activity. -The patient voices adherence to recommended usage: Yes -The patient voices benefit/symptom control on O2: Yes -The patient was counseled patient not begin, restart, or continue smoking due to risk of fire which could result in damage to the O2 tanks & tubing, smoke inhalation and flame damage to the airway, significant holloway, property damage, , and potential harm & to bystanders. Additionally, the patient was counseled against beginning, restarting, or continuing to smoke given the unde rlying pulmonary disease that led to the point of requiring O2. -She currently has [employer] and received a letter stating that she needs to either replace her machine with a new unit or go with another DME. I have voiced my concern about continue with [employer]. Her O2 demands are increasing and I expressed my concern that her [employer] will not be able to provide the O2 flow necessary for her. Her SpO2 in the office was only 91% on 5L/min. I recommended a local DME;I explained they also have POC devices, but that may be insufficient for her respiratory needs and she may actually require a continuous flow. Additionally, if she does continue with [employer], there carley 36-month lockout period to switch DME. Against my advice, the patient voiced she wished to continue with [employer]. I believe this will be a mistake in the future. -This documentation authorizes the renewal, reorder/refill, and replacement of O2 and all associated supplies. Solitary pulmonary nodule LLL 6mm solitary pulmonary nodule, appears pleural-based. Present on soft windows. In the [facility] solitary pulmonary nodule risk calculator, the risk of this nodule for malignancy is 9.4%. I explained to the patient that it is advised to follow-up with a CT chest. Additionally, this would need to be monitored and declared stable if she would ever want to even consider endobronchial valves. She once again voiced that she has no interest in pursuing any further workup or treatment of this nodule if it were increasing in size (which could be cancer), so therefore there is no indication to order unnecessary CT chest. Irregular heart rhythm On examination, she had multiple dropped beats; underlying rhythm appeared regular. Patient complains of worsening fatigue. I mentioned that cardiac issues, such as an arrhythmia, can contribute to fatigue and dyspnea. With dropped beats, cannot rule out AV block such as second-degree AV block typeII (Mobitz), or third-degree AV block. As I was already going to get a EKG for QTc prolongation evaluation for chronic azithromycin therapy, EKG can also evaluate for any arrhythmia. Unfortunately, this is only a brief period of time, and if patient is not having an arrhythmia at the current time, the EKG would miss it. She states she is going to be seeing her PCP soon. If she has arrhythmia then, she may benefit from further workup. Orders: EKG 12 lead; Future Encounter for end of life care I am concerned about her decline in her respiratory status. There is less symptom control with increased O2 demands. Options are limited and she does not want any aggressive therapy. I suggested palliative care. I also brought up the uncomfortable topic of considering hospice if she becomes too symptomatic or just exhausted with everything. I feel that she would be hospice appropriate at that point secondary to end-stage COPD. Planned follow-up: Return in about 3 months (around 12/15/2025) for COPD, O2. Data: Alpha-1 Antitrypsin: Screening Date: 07/25/2020. Genotype: MM PFT: Data: 08/01/2020 -FEV1/FVC: 25% -FEV1: 28% -FVC: 83% -Bronchodilator response: None -RV: 178% -T% -DLCO: 63% -Flow-volume loop: Very severe obstruction 05/04/2015 -FEV1/FVC: 33% -FEV1: 27% -FVC: 63% -Bronchodilator response: Positive in FVC -RV: 237% -T% -DLCO: 68% -Flow-volume loop: Very severe obstruction. Subjective: Stefany Rivas was previously established with me at [facility] and is now establishing with me at [facility]. She was last seen by me on 05/10/2025. Her records from [facility] were reviewed. Patient stoicallystates that her breathing is doing okay, but then admits she feels horrible. Her overall control ofsymptoms is gradually decreasing. At her last visit, increased the prednisone to 5mg BID. She did not feel that made a significant improvement. She went to the ER for dyspnea ~1 month ago and diagnosed with acute exacerbation of COPD. She did not require inpatient admission. She followed up with her PCP and had complaints of a tremor. There were thoughts that the prednisone was contributing to this, so the dose was reduced to 5mg QD. She states the tremor improved some, and she did not notice asignificant worsening of her dyspnea. She remains on oxygen and has an [employer]. She received a letter that her unit is at end of usual life and she qualifies for a new unit. She had a choice of either exchanging out with another [employer] device, or establishing with a new DME. She is currently using 4L/min @ rest and 5L/min with activity.This is increased from her baseline 3L/min from April. HPI Follow-up Additional comments: Patient presents for a follow up for a follow up for COPD. Patient states her breathing has worsened since her last visit. Patient is currently on 5L O2 at home. Patient complains of congestion and increased mucus production. Patient is using Stiolto daily. Last edited by Rilye Ibanez MA on 09/14/2025 3:09 PM. Review of systems: Review of Systems Constitutional: Positive for fatigue. Negative for appetite change, chills, fever and unexpected weight change. HENT: Negative for sore throat and voice change. Respiratory: Positive for chest tightness and shortness of breath. Negative for cough and wheezing. Cardiovascular: Negative for chest pain. Skin: Negative for pallor. Neurological: Positive for tremors and weakness. Psychiatric/Behavioral: Positive for dysphoric mood. Negative for suicidal ideas. Exam: BP 134/82 (BP Site: Left Upper Arm, Patient Position: Sitting, BP Cuff Size: Large Adult) Pulse 55 Temp 97.1 ??F (36.2 ??C) (Infrared) Resp 20 Ht 1.6 m (5' 3 ) Wt 90.7 kg (200 lb) Comment: Patient reported SpO2 91% Comment: 5L O2 BMI 35.43 kg/m?? Physical Exam Constitutional: Comments: Chronically ill-appearing. HENT: Nose: Comments: Wearing nasal cannula. Mouth/Throat: Mouth: Mucous membranes are moist. Pharynx: Oropharynx is clear. Comments: Mallampati III. Upper dentures. No oral candidiasis. Cardiovascular: Comments: Underlying rhythm appears regular, but there are frequently skipped beats. IV/ systolicmurmur. Pulmonary: Comments: Breathing is unlabored. Diminished breath sounds throughout. Faint expiratory wheezes, tight. No crackles or rhonchi. Abdominal: Comments: Mildly increased central adiposity. Neurological: General: No focal deficit present. Mental Status: She is alert. Psychiatric: Mood and Affect: Mood is depressed. Behavior: Behavior is cooperative. Medical history: Past Medical History: Diagnosis Date Centrilobular emphysema CHF (congestive heart failure) Chronic respiratory failure with hypoxia History of tobacco abuse HTN (hypertension) Solitary pulmonary nodule Past Surgical History: Procedure Laterality Date CATARACT REMOVAL TONSILLECTOMY No Known Allergies Current Outpatient Medications Medication Sig Dispense Refill lisinopril-hydroCHLOROthiazide (PRINZIDE;ZESTORETIC) 20-25 MG per tablet Take 1 tablet by mouth daily predniSONE (DELTASONE) 5 MG tablet Take 1 tablet by mouth 2 times daily (with meals) azithromycin (ZITHROMAX Z-LUIS EDUARDO) 250 MG tablet Take 1 tablet by mouth daily 30 tablet 5 albuterol sulfate HFA (PROVENTIL;VENTOLIN;PROAIR) 108 (90 Base) MCG/ACT inhaler Inhale 2 puffs intothe lungs every 4 hours as needed for Shortness of Breath 54 g 4 tiotropium-olodaterol (STIOLTO RESPIMAT) 2.5-2.5 MCG/ACT AERS Inhale 2 puffs into the lungs daily 3each 4 No current facility-administered medications for this visit. Immunization History Administered Date(s) Administered COVID-19, Inactive, PFIZER PURPLE top, DILUTE for use, (age 12 y+) 12/21/2020, 01/11/2021 Social History Tobacco Use Smoking status: Not on file Smokeless tobacco: Not on file Substance Use Topics Alcohol use: Not on file No family history on file. On this date 09/14/2025 I have spent 40 minutes reviewing previous notes, test results and face to face with the patient discussing the diagnosis and importance of compliance with the treatment plan as well as documenting on the day of the visit. I also began the very difficult topic of looking into end-of-life care, such as palliative care and hospice. An electronic signature was used to authenticate this note. -Marcio Mireles DO, PharmD, FACOI documented in this encounter Plan of Treatment DateTypeDepartmentCare Team (Latest Contact Info)Giknfuekajy65/17/2026 1:00 PM ESTOffice Visit [facility] [address] [facility] [address] [place] [address] Marcio Mireles DO [address] [facility] [address] [place] [address] 3 [place] F/U COPD, O2.NameTypePriorityAssociated DiagnosesOrder ScheduleEKG 12 lead ECGRoutine Irregular heart rhythm Expected: 09/14/2025 (Approximate), Expires: 11/13/2025documented as of this encounter Visit Diagnoses Diagnosis Centrilobular emphysema- Primary Other emphysema Chronic respiratory failure with hypoxia Chronic respiratory failure Solitary pulmonary nodule Irregular heart rhythm Cardiac dysrhythmia, unspecified Encounter for end of life care Encounter for palliative care documented in this encounter Additional Health Concerns AssessmentNoted TimeA fall risk assessment has been completed for the patient 09/14/2025 3:04 PM ESTdocumented as of this encounter Care Teams Team MemberRelationshipSpecialtyStart DateEnd Date Paulina James MD [address] [place] [phone] PCP - GeneralFamily Whqqssnw02/6/25documented as of this encounter
--- OUTSIDE RECORDS SUMMARY | 2025-09-21 11:32 | XMS_ITS | Clinical Summary ---
Author Organization [facility] Address [address], [address] [place] [address] Care Team Providers Care Fall Internship Name Role Phone Paulina James MD Primary Care Provider [phone] Allergies No known active allergies Medications MedicationSigDispense QuantityRefillsLast FilledStart DateEnd DateStatus lisinopril-hydroCHLOROthiazide (PRINZIDE;ZESTORETIC) 20-25 MG per tablet Take 1 tablet by mouth dailyActive predniSONE (DELTASONE) 5 MG tablet Take 1 tablet by mouth 2 times daily (with meals)5Active azithromycin (ZITHROMAX Z-WENDY) 250 MG tablet Indications:Centrilobular emphysema (HCC)Take 1 tablet by mouth daily 30 tablet 5Active albuterol sulfate HFA (PROVENTIL;VENTOLIN;PROAIR) 108 (90 Base) MCG/ACT inhaler Indications:Centrilobular emphysema (HCC)Inhale 2 puffs into the lungs every 4 hours as needed for Shortness of Breath 54 g 5Active tiotropium-olodaterol (STIOLTO RESPIMAT) 2.5-2.5 MCG/ACT AERS Indications:Centrilobular emphysema (HCC)Inhale 2 puffs into the lungs daily 3 each 5Active albuterol sulfate HFA (PROVENTIL;VENTOLIN;PROAIR) 108 (90 Base) MCG/ACT inhaler Inhale 2 puffs into the lungs every 4 hours as needed for Shortness of Breath or Bcblzwvj02Discontinued(REORDER) STIOLTO RESPIMAT 2.5-2.5 MCG/ACT AERS Inhale 2 puffs into the lungs dailyDiscontinued(REORDER) Active Problems ProblemNoted DateDiagnosed DateCentrilobular emphysema Assessment & Plan (09/14/2025 5:36 PM EST): Prior treatment: Prednisone 5mg QD - BID; [...] begins having symptoms again. Orders: azithromycin (ZITHROMAX Z-WENDY) 250 MG tablet; Take 1 tablet by mouth daily albuterol sulfate HFA (PROVENTIL;VENTOLIN;PROAIR) 108 (90 Base) MCG/ACT inhaler; Inhale 2 puffs into the lungs every 4 hours as needed for Shortness of Breath tiotropium-olodaterol (STIOLTO RESPIMAT) 2.5-2.5 MCG/ACT AERS; Inhale 2 puffs into the lungs daily Solitary pulmonary nodule Assessment & Plan (09/14/2025 5:36 PM EST): LLL 6mm solitary pulmonary nodule, appears pleural-based. Present on soft windows. In the [facility] solitary pulmonary nodule risk calculator, [...] no indication to order unnecessary CT chest. Chronic respiratory failure with hypoxia Assessment & Plan (09/14/2025 5:36 PM EST): A hfxc-xl-kitt encounter was performed with the patient today [...] replacement of O2 and all associated supplies. Encounters DateTypeDepartmentCare JnsgUytuajkqgsq29/19/2025 3:00 PM ESTOffice Visit [facility] Pul[facility] [address] [facility] [facility] [address] [place] [address] Marcio Mireles DO Centrilobular emphysema (Primary Dx); Chronic respiratory failure with hypoxia; Solitary pulmonary nodule; Irregular heart rhythm; Encounter for end of life care09/09/2025Telephone [facility] Pulmonology [address], [address] [place] [address] Marcio Mireles DO Stiolto Cost09/01/2025Refill [facility] Pulmonology [address] [facility] [address] [place] [address] Marcio Mireles DO Medication Refillfrom Last 3 Months Family History Medical HistoryRelationNameCommentsHypertensionFatherLung CancerFatherCOPDMother RelationNameStatusCommentsFatherMother Social History Tobacco UseTypesPacks/DayYears UsedDateSmoking Tobacco: [id number] - 2009Smokeless Tobacco: Former Tobacco Cessation:Counseling Given: Yes Alcohol [...] RecordedSex Assigned at BirthNot on file Legal PukDmsqkn96/10/2013 11:49 AM ESTGender IdentityNot on fileSexual OrientationNot on fileOccupationIndustryJob Start DateJob End DateHealthcare aideNot on fileNot on fileNot on file Last Filed Vital Signs Vital SignReadingTime TakenCommentsBlood Zxeghttp443/8209/14/2025 3:01 PM EST Liarb176909/14/2025 3:01 PM KRGLhntoxugzfn26.2 ??C (97.1 ??F)09/14/2025 3:01 PM ESTRespiratory Bgwr4204 3:01 PM ESTOxygen Wmazwxofds10%09/14/2025 3:01 PM EST5L Z9Fqtbyno Oxygen Concentration--Jjgjec11.7 kg (200 lb)09/14/2025 3:01 PM ESTPatient ojtgxpcmCilvlp976 cm (5' 3 )09/14/2025 3:01 PM ESTBody Mass Index 35.43111/14/2024 3:01 PM EST Plan of Treatment DateTypeDepartmentCare Team (Latest Contact Info)Kgcqkzfgrhz92/17/2026 1:00 PM ESTOffice Visit [facility] Pulmonology [address] [facility] [address] [place] [address] Marcio Mireles DO [address] [facility] [address] [place] [address] 3 [place] F/U COPD, O2.Health MaintenanceDue DateLast DoneCommentsDepression Screen 1959Hepatitis C queigy8007/03/1965DTaP/Tdap/Td vaccine (1 - Tdap)1966 Pneumococcal 50+ years Vaccine (1 of 2 - PCV)1966Shingles vaccine (1 of 2) 1997DEXA (modify frequency per FRAX score)2002Respiratory Syncytial Virus (RSV) or age 60 yrs+ (1 - 1-dose 75+ series)2022Flu vaccine (#1)5COVID-19 Vaccine ( - season)503/, 12/21/2020nnual Wellness Visit (Medicare)08/17/2025Hepatitis A vaccineAged Out No longer eligible based on patient's age to complete this topicHepatitis B vaccineAged OutNo longer eligible based on patient's age to complete this topic Hib vaccineAged OutNo longer eligible based on patient's age to complete this topicMeningococcal (ACWY) vaccineAged OutNo longer eligible based on patient's age to complete this topicMeningococcal B vaccineAged OutNo longer eligible based on patient's age to complete this topicPolio vaccineAged OutNo longer eligible based on patient's age to complete this topic Insurance Advance Directives NameRelationshipHealthcare Agent RelationshipCommunicationWynn KeishaSpouse Primary Decision Maker* * Care Teams Team MemberRelationshipSpecialtyStart DateEnd Date Paulina James MD [address] [place] [phone] PCP - GeneralFamily Qerlhpbe24/6/25
--- OUTSIDE RECORDS SUMMARY | 2025-09-21 11:32 | XMS_ITS | Clinical Summary ---
Author Organization [facility] Address [address] [place] [address] Care Team Providers Care Shipper Receiver Name Role Phone Paulina James MD Primary Care Provider [phone] Social History Tobacco UseTypesPacks/DayYears UsedDateSmoking Tobacco: Never Assessed CommentsUnknownSex and Gender InformationValueDate RecordedSex Assigned at Not on fileLegal DctNbzvrb62/15/2023 8:15 PM EDTGender IdentityNot on fileSexual OrientationNot on file Plan of Treatment Not on file Insurance Care Teams Team MemberRelationshipSpecialtyStart DateEnd Date Paulina James MD [address] [place] [phone] PCP - GeneralFamily Medicine02/18/25
--- OUTSIDE RECORDS SUMMARY | 2025-09-21 11:32 | XMS_ITS | Encounter Summary ---
Author Organization [facility] Address [address] [facility], [address] [place] [address] Care Team Providers Care Gastroenterology Nurse Name Role Phone Paulina James MD Primary Care Provider [phone] Reason for Visit * ReasonOnset DateCommentsStiolto Cost09/09/2025 Encounter Details DateTypeDepartmentCare Team (Latest Contact Info)Shmrrfpnlme08/14/2025Telephone [facility] [address] [place] [address] [address] [place] [address] [address] Stiolto Cost Social History Tobacco UseTypesPacks/DayYears UsedDateSmoking Tobacco: Never Assessed CommentsUnknownSex and Gender InformationValueDate RecordedSex Assigned at Not on fileLegal XuoMxzgyx25/10/2013 11:49 AM ESTGender IdentityNot on file Sexual OrientationNot on filedocumented as of this encounter Plan of Treatment DateTypeDepartmentCare Team (Latest Contact Info)Zezrpebiuas09/17/2026 1:00 PM ESTOffice Visit [facility] Pul[facility]ology [address] [facility] [address] [place] [address] [facility], [address] [address] [place] F/U COPD, O2.documented as of this encounter Visit Diagnoses Not on filedocumented in this encounter Care Teams Team MemberRelationshipSpecialtyStart DateEnd Date Paulina James MD [address] [place] [address] PCP - GeneralFamily Knxghcom64/6/25documented as of this encounter
--- OUTSIDE RECORDS SUMMARY | 2025-09-21 11:32 | XMS_ITS | Encounter Summary ---
Author Organization [facility] Address [address] [facility] [facility], [address] [place] [address] Care Team Providers Care Director Of Community Education Name Role Phone Paulina James MD Primary Care Provider Reason for Visit * ReasonOnset DateCommentsMedication Hooqxu1109/01/2025 Encounter Details DateTypeDepartmentCare Team (Latest Contact Info)Ubqxpdevwic10/06/2025Refill [facility] [address] [place] [address] [place] [address] [address] [facility], [place], [address] [place] [address] Medication Refill Social History Tobacco UseTypesPacks/DayYears UsedDateSmoking Tobacco: Never Assessed CommentsUnknownSex and Gender InformationValueDate RecordedSex Assigned at Not on fileLegal VhgPoajyc12/10/2013 11:49 AM ESTGender IdentityNot on file Sexual OrientationNot on filedocumented as of this encounter Plan of Treatment DateTypeDepartmentCare Team (Latest Contact Info)Qixbugnelmj64/17/2026 1:00 PM ESTOffice Visit [facility] Pul[facility]ology [address] [place] [address] [address] [place] [address] [facility], [address] [place] [address] 3 [place] F/U COPD, O2.documented as of this encounter Visit Diagnoses Diagnosis Chronic obstructive pulmonary disease, unspecified COPD type (HCC)- Primary documented in this encounter Care Teams Team MemberRelationshipSpecialtyStart DateEnd Date Paulina James MD [address] [place] [address] PCP - GeneralFamily Sdkjudnc83/6/25documented as of this encounter
--- OUTSIDE RECORDS SUMMARY | 2025-09-21 11:33 | XMS_ITS | CCD ---
Author Organization [facility] Care Team Providers Care Concrete Floater Name Role Phone WEST, DR HESHAM Terrell Consulting Unavailable MENDY, DR PAULINA Kellogg Attending Unavailable EMNDY, DR PAULINA Kellogg Primary Care Unavailable MENDY, DR PAULINA Kellogg Admitting Unavailable MENDY, DR PAULINA Kellogg Consulting Unavailable Paulina James Keegan Coles DO Attending Provider Unavailab Keegan Duncan Attending Unavailable Keegan Coles Admitting Unavailable Paulina James MD Primary Care Provider Paulina James MD Attending Provider Paulina James MD Primary Care Provider Paulina James MD Attending Provider [phone] Gladys Duran CMA Attending Provider Unavaila ble Allergies Allergy ClassificationReported Allergen(s)Allergy TypeDate of OnsetReaction(s) Facility (1 source)[facility] [employer] Other (1 source)CodeineDrug Navouww20-32-2983JrvdmpgmhSt. [facility] Medications Current Medications MedicationDrug Class(es)DatesSig (Normalized)Sig (Original)[id number] 200 actuat albuterol 0.09 mg/actuat metered dose inhaler (16 sources)beta2-Adrenergic AgonistStart: 31-31-5611dyag 2 puff(s) by mouth every six hours as neededAlbuterol Sulfate 90 mcg/actuation HFA aerosol inhaler Active 0 .ROUTE .COMPLEX 8.5 May 240:00am INHALE 2 PUFFS BY MOUTH EVERY 6 HOURS NEEDED FOR BRONCHOSPASM Complies with drug therapyStart: 03-09-2024 End: 28-95-2825btwx 1 puff(s) by inhalation every six hours as neededAlbuterol Sulfate 90 mcg/actuation HFA aerosol inhaler Discontinued 2 PUFF INHALATION Every 6 hoursas needed for bronchospasm 8.5 March 09, 2024 11:00am May 24, 2024 10:00amStart: 02-11-2024 End: 98-85-1375xdiv 2 puff(s) by inhalation every four hours as neededAlbuterol Sulfate 90 mcg/actuation HFA aerosol inhaler Discontinued 2 PUFF INHALATION February 11, 2024 12:00am March 09, 2024 11:01am INHALE 2 PUFFS INTO THE LUNGS EVERY 4 HOURS NEEDEDtake 2 puff(s) by mouth every four hours as needed Albuterol Sulfate HFA 108 (90 Base) MCG/ACT TAKE 2 PUFFS BY MOUTH EVERY 4 HOURS NEEDED for 30 Activeazithromycin 250 mg oral tablet (1 source)Macrolide AntimicrobialStart: 29-49-2542Bfpbjhkmxxlu 250 MG as directed Orally 2 tabs po today, then 1 tab daily x 4 more days for 5 Oct, ActivehydroCHLOROthiazide 25 mg / lisinopril 20 mg oral tablet (9 sources)Thiazide Diuretic, Angiotensin Converting Enzyme InhibitorStart: 28-24-5739xhic 1 tablet by mouth once dailyLisinopril-Hydrochlorothiazide 20-25 mg tablet Active 0 .ROUTE .COMPLEX November 16, 2024 1:55pm TAKE 1 TABLET BY MOUTH EVERY DAY Complies with drug therapyStart: 03-08-2024 End: 65-10-1885ckqp 1 tablet by mouth once dailyLisinopril-Hydrochlorothiazide 20-25 mg tablet Discontinued 1 TAB PO Daily March 08, 2024 12:00am November 16, 2024 1:55pm FreeTextSig: TAKE 1 TABLET BY MOUTH EVERY DAY; Note: Source Status: Start; Refills: 3; Qty: 90 Tablet; Provider: Mendy Gallardo ( )take 1 tablet by mouth once dailyLisinopril-hydroCHLOROthiazide 20-25 MG TAKE 1 TABLET BY MOUTH EVERY DAY for 90 ActiveTiotropium-Olodaterol (5 sources)Anticholinergic, beta2-Adrenergic AgonistStart: 07-34-6328Kmlykhzxir- Olodaterol (Stiolto Respimat) 2.5-2.5 mcg/actuation mist Active 2 PUFF INHALATION Daily March 08, 2024 12:00am Complies with drug therapyStart: 88-96-8535Ocaaggsdir-Olodaterol (Stiolto Respimat) 2.5-2.5 mcg/actuation mist Active 2 PUFF INHALATION Daily March 07, 2024 11:00pmpredniSONE 5 mg oral tablet (4 sources)Start: 83-25-5366bcmy 1 tablet by mouth once dailyPrednisone 5 mg tablet Active 5 MG PO Daily April 26, 2025 12:00am Complies with drug therapy Start: 86-12-4327oqct 2 tablets by mouth every twenty-four hourspredniSONE 20 MG 2 tablets Orally Once a day for 5 days Oct, ActiveStiolto Respimat (1 source)Stiolto Respimat Active Problems Problem ClassificationProblemDateDocumented DateEpisodic/ChronicChronic obstructive pulmonary disease and bronchiectasis (8 sources)Acute exacerbation of chronic obstructive airways disease; Translations: [Chronic obstructive pulmonary disease with (acute) exacerbation] Onset: 39-78-5494DwfhwyzAigbmmy obstructive pulmonary disease and bronchiectasis (1 source)Chronic obstructive pulmonary disease and bronchiectasisEssential hypertension (6 sources)Essential hypertension; Translations: [Essential (primary) hypertension]82-20-6112TtolbloTsydl lower respiratory disease (3 sources)Pulmonary edema; Translations: [Chronic pulmonary edema]11-08-2024 ChronicOther non-traumatic joint disorders (4 sources)Pain in left knee; Translations: [PAIN IN LEFT KNEE]Onset: 07-23-2022 EpisodicRespiratory failure; insufficiency; arrest (adult) (6 sources)Fowej-hw-jwinwmp respiratory failure; Translations: [Acute and chronic respiratory failure, unspecified whether with hypoxia or hypercapnia] 23-12-0270TijkkisZomsz infection (3 sources)Disease caused by 2019-nCoV; Translations: [COVID-19]11-08-2024 Episodic Results Test NameValueInterpretationReference RangeFacilityBasophils/100 WBC Manual cnt (Bld)Ordered By: Arturo Villafuerte on 25-68-9023Uwruuksbo/100 WBC (Bld)0.0 %Low0.2-2.0 [facility] HospitalEosinophils/100 WBC Manual cnt (Bld)Ordered By: Arturo Villafuerte on 26-51-2262Wmbawzkswyp/100 WBC (Bld)1.0 %0.9-7.0[facility] HospitalErythrocyte distribution width Auto (RBC) [Ratio]Ordered By: Paulina James on 03-26-3939Xynogszmdsm distribution width (RBC) [Ratio]17.5 % High11.0-15.0[facility] HospitalGlomerular filtration rate (GFR) estimation in non- AmericanOrdered By: Arturo Villafuerte on 27-49-3807GCG/1.73 sq M.predicted among non-blacks MDRD (S/P/Bld) [Vol rate/Area]mL/min/{1.73_m2} >=60 mL/min/1.73m 2FCity HospitalHematocrit Auto (Bld) [Volume fraction]Ordered By: Paulina James on 09-63-9828Gurmrvuzst (Bld) [Volume fraction]31.0 %Low36.0-48.0[facility] HospitalHemoglobin [Mass/volume] in BloodOrdered By: Paulina James on 47-81-2704Tmgpxbcoam (Bld) [Mass/Vol]8.8 g/dLLow12.0-16.0[facility] HospitalHypochromia LM Ql (Bld)Ordered By: Arturo Villafuerte on 76-47-8626Dxhcvmufgcp Ql (Bld)3+[facility] HospitalLaboratory - Chemistry and Chemistry - challengeOrdered By: Arturo Villafuerte on 08-67-4231Ociwdua [Mass/Vol]9.1 mg/dL8.5-10.1FCity HospitalChloride [Moles/Vol]96 mmol/DHun05-555CtdtgpwwvSt. Elizabeth HospitalCO2 [Moles/Vol]43.1 mmol/LHigh21.0-32.0[facility] HospitalCreatinine [Mass/Vol]0.72 mg/dL0.55-1.02[facility] GFR/1.73 sq M.predicted MDRD (S/P/Bld) [Vol rate/Area]mL/min/{1.73_m2}>=60 mL/min/1.73m 2FCity HospitalGlucose [Mass/Vol]113 mg/dLHigh 74-106[facility] HospitalMagnesium [Mass/Vol]1.9 mg/dL1.8-2.4 [facility] HospitalNatriuretic peptide B (Bld) [Mass/Vol]169.0 pg/mL<=1800.0[facility] HospitalPotassium [Moles/Vol]4.2 mmol/L 3.5-5.1FUC Healthodium [Moles/Vol]145 mmol/D497-487 [facility] HospitalUrea nitrogen [Mass/Vol]16.0 mg/dL7.0-18.0 [facility] HospitalUrea nitrogen/Creatinine [Mass ratio]22.2 mg/mg [facility] HospitalLaboratory - Hematology and Cell countsOrdered By: Arturo Villafuerte on 09-28-3152Pfpo form neutrophils/100 WBC (Bld)2.0 %0-5 [facility] HospitalLymphocytes/100 WBC (Bld)6.0 %Low20.5-60.0 [facility] HospitalMonocytes/100 WBC (Bld)8.0 %1.7-12.0[facility] HospitalLeukocytes [#/volume] corrected for nucleated erythrocytes in Blood by Automated counOrdered By: Paulina James on 09-23-5230CYP corrected for nucl RBC Auto (Bld) [#/Vol]6.9 10 3/uL4.0-11.0[facility] Auto (RBC) [Entitic mass]Ordered By: Paulina James on 12-75-0035SHW (RBC) [Entitic mass]26.7 pg26.7-34.0[facility] HospitalHC Auto (RBC) [Mass/Vol]Ordered By: Paulina James on 82-81-3319AENW (RBC) [Mass/Vol]28.4 g/dLLow29.9-35.2FCity HospitalMCV Auto (RBC) [Entitic vol]Ordered By: Paulina James on 12-12-1254AIH (RBC) [Entitic vol]93.9 fL81.0-99.0[facility] HospitalNo Panel InformationOrdered By: Arturo Villafuerte on 42-16-5565Bpocuuyh Basophils (Manual)0.00 10 3/uL0.00-0.10[facility] HospitalBand Neutrophils # (Manual)0.1 10 3/uL0.0-0.3FCity HospitalEosinophils # (Manual)0.06 10 3/uL0.00-0.70[facility] HospitalLymphocytes # (Manual)0.41 10 3/uLLow1.20-3.80[facility] HospitalMonocytes # (Manual)0.55 10 3/uL0.30-0.80[facility] HospitalPlatelet CommentNORMALSt. [facility] Hospital Segmented Neutrophils # (Manual)5.72 10 3/uL1.4-6.5FCity HospitalTroponin I High Czlatlpmlqm01.1 pg/mL4.0-51.3FCity HospitalComment on above:CUT-OFF POINTS HAVE BEEN ESTABLISHED BASED ON THE FOURTHUNIVERSAL DEFINITION OF MYOCARDIAL INFARCTION. THE UPPERREFERENCE LIMIT (URL) OF TROPONIN, DEFINED THE 99THPERCENTILE OF cTnI DISTRIBUTION IN A REFERENCE POPULATION,HAS BEEN CONFIRMED THE DECISION THRESHOLD FOR MIDIAGNOSIS.99TH PERCENTILE = 51.4 PG/MLNOTE: HIGH-SENSITIVITY TROPONIN ASSAY IS NOT INTENDED TO BEUSED IN ISOLATION BUT SHOULD BE INTERPRETED IN CONJUNCTIONWITH OTHER DIAGNOSTIC AND CLINICAL INFORMATION.Platelet mean volume Auto (Bld) [Entitic vol]Ordered By: Paulina James on 00-05-6422Ecjivnfz mean volume (Bld) [Entitic vol]9.5 fL9.5-13.5FCity HospitalPlatelets Auto (Bld) [#/Vol]Ordered By: Paulina James on 23-93-7885Ntzkfygix (Bld) [#/Vol]191 10 3/uL 150-450[facility] HospitalPoikilocytosis [Presence] in Blood by Light microscopyOrdered By: Arturo Villafuerte on 18-59-3137Kncpchvpnhfgfj LM Ql (Bld) 1+[facility] HospitalRBC Auto (Bld) [#/Vol]Ordered By: Paulina James on 34-51-9811BTQ (Bld) [#/Vol]3.30 10 6/uLLow4.20-5.40[facility] HospitalRBC morphologyOrdered By: Arturo Villafuerte on 63-71-2340VUT morphology finding Nom (Bld)ABNORMALSt. Elizabeth HospitalRed blood cell stomatocyte detectionOrdered By: Arturo Villafuerte on 40-64-2084Bjjvmljtrgrq LM Ql (Bld)1+[facility] Hospitalegmented neutrophils/100 WBC Manual cnt (Bld)Ordered By: Arturo Villafuerte on 79-96-0484Ituvwhuuz neutrophils/100 WBC (Bld) 83.0 %High43.0-75.0[facility] Hospitalerum or plasma anion gap determinationOrdered By: Arturo Villafuerte on 94-49-5402Yajys gap [Moles/Vol]10.1 mmol/LFUC Healthmudge cell detectionOrdered By: Arturo Villafuerte on 50-28-9661Inwmae cells LM Ql (Bld)3FCity Hospital Basophils Auto (Bld) [#/Vol]on 79-68-1778Sqzwkzllp (Bld) [#/Vol]Automated basophil count0.0-0.1FCity HospitalBasophils/100 WBC Auto (Bld)on 55-19-2320Wabirprke/100 WBC (Bld)Automated basophil %0.2-2.0[facility] HospitalEosinophils/100 WBC Auto (Bld)on 10-31-2024 Eosinophils/100 WBC (Bld)Automated eosinophil %Low0.9-7.0[facility] HospitalErythrocyte distribution width Auto (RBC) [Ratio]on 10-31-2024 Erythrocyte distribution width (RBC) [Ratio]Erythrocyte distribution width [Ratio] by Automated count11.0-15.0[facility] HospitalEstimated glomerular filtration rate (GFR) non- Americanon 06-35-5821HPC/1.73 sq M.predicted among non-blacks MDRD (S/P/Bld) [Vol rate/Area]Estimated glomerular filtration rate (GFR) non->=60 mL/min/1.73m 2FCity HospitalGlobulin Calc (S) [Mass/Vol]on 80-36-8128Gusaircq (S) [Mass/Vol] Serum globulin measurement by calculation (mass/volume)[facility] HospitalHematocrit Auto (Bld) [Volume fraction]on 22-58-8341Xyxgfqxusj (Bld) [Volume fraction]Hematocrit [Volume Fraction] of Blood by Automated count Low36.0-48.0[facility] HospitalHemoglobin [Mass/volume] in Bloodon 05-83-4104Arevnzukxn (Bld) [Mass/Vol]Hemoglobin [Mass/volume] in BloodLow 12.0-16.0[facility] HospitalLaboratory - Chemistry and Chemistry - challengeon 59-98-4840Qepbihl [Mass/Vol]2.8 g/dLLow3.4-5.0[facility] HospitalALP [Catalytic activity/Vol]55 U/Y86-346UigylcpcuSt. Elizabeth HospitalALT [Catalytic activity/Vol]15 U/B95-32IkarbprmhSt. [facility] Hospital AST [Catalytic activity/Vol]17 U/F54-69UysizjkgnSt. [facility] Hospital Bilirubin [Mass/Vol]0.2 mg/dL0.2-1.0[facility] HospitalCalcium [Mass/Vol]9.7 mg/dL8.5-10.1FCity HospitalChloride [Moles/Vol] 100 mmol/B10-914OugvwqrhjSt. Elizabeth HospitalCO2 [Moles/Vol]50.5 mmol/LHigh 21.0-32.0[facility] HospitalCreatinine [Mass/Vol]0.91 mg/dL 0.55-1.02[facility] HospitalGFR/1.73 sq M.predicted MDRD (S/P/Bld) [Vol rate/Area]mL/min/{1.73_m2}>=60 mL/min/1.73m 2FCity HospitalGlucose [Mass/Vol]122 mg/oLHtpr17-618XavirmbexSt. [facility] Hospital Potassium [Moles/Vol]4.2 mmol/L3.5-5.1FCity HospitalProtein [Mass/Vol]6.8 g/dL6.4-8.2FUC Healthodium [Moles/Vol]147 mmol/TWlic896-468MsjslghcjSt. Elizabeth HospitalUrea nitrogen [Mass/Vol]31.0 mg/dLHigh7.0-18.0[facility] HospitalUrea nitrogen/Creatinine [Mass ratio]34.1 mg/mgSt. Elizabeth HospitalLaboratory - Hematology and Cell countson 80-70-2990Qfafdzwn granulocytes/100 WBC (Bld)4.7 %High0.0-0.5 [facility] HospitalLeukocytes [#/volume] corrected for nucleated erythrocytes in Blood by Automated counon 14-29-3216JPA corrected for nucl RBC Auto (Bld) [#/Vol]Leukocytes [#/volume] corrected for nucleated erythrocytes in Blood by Automated coun4.0-11.0[facility] HospitalLymphocytes Auto (Bld) [#/Vol]on 45-80-3160Vhcbyvqlooz (Bld) [#/Vol]Lymphocytes [#/volume] in Blood by Automated countLow1.2-3.8[facility] Lymphocytes/100 WBC Auto (Bld)on 98-04-7656Itzessczrih/100 WBC (Bld) Lymphocytes/100 leukocytes in Blood by Automated fgyqbGnt41.5-60.0[facility] HospitalH Auto (RBC) [Entitic mass]on 55-77-8112BGT (RBC) [Entitic mass]MCH [Entitic mass] by Automated count26.7-34.0[facility] HospitalMCHC Auto (RBC) [Mass/Vol]on 11-39-3595NKNS (RBC) [Mass/Vol]MCHC [Mass/volume] by Automated gtmotAqm35.9-35.2FCity HospitalMCV Auto (RBC) [Entitic vol]on 71-71-8312DBF (RBC) [Entitic vol]MCV [Entitic volume] by Automated payjtQimp90.0-99.0[facility] Monocytes Auto (Bld) [#/Vol]on 92-40-9464Utcywciui (Bld) [#/Vol]Automated blood monocyte count0.3-0.8[facility] HospitalMonocytes/100 WBC Auto (Bld)on 31-99-8225Yuidtzhwy/100 WBC (Bld)Automated monocyte %1.7-12.0[facility] HospitalNeutrophils Auto (Bld) [#/Vol]on 20-17-4769Ejknmvcwhrd (Bld) [#/Vol]Neutrophils [#/volume] in Blood by Automated countHigh1.4-6.5 [facility] HospitalNeutrophils/100 WBC Auto (Bld)on 10-31-2024 Neutrophils/100 WBC (Bld)Automated neutrophil %High43.0-75.0[facility] HospitalNo Panel Informationon 60-15-8411Binsfeobbxw # (Auto)0.0 10 3/uL 0.0-0.7FCity HospitalImmature Granulocyte # (Auto)0.44 10 3/uLHigh0.00-0.03[facility] HospitalPlatelet mean volume Auto (Bld) [Entitic vol]on 95-73-1281Gcpuyqaj mean volume (Bld) [Entitic vol]Platelet mean volume [Entitic volume] in Blood by Automated countLow9.5-13.5FCity HospitalPlatelets Auto (Bld) [#/Vol]on 27-99-6149Xqojeaqjw (Bld) [#/Vol]Platelets [#/volume] in Blood by Automated epmev234-554RvxksxmwzSt. Elizabeth HospitalRBC Auto (Bld) [#/Vol]on 77-63-0617GPW (Bld) [#/Vol]Erythrocytes [#/volume] in Blood by Automated countLow4.20-5.40[facility] Hospitalerum or plasma albumin/globulin mass ratioon 40-09-2956Omdkjdt/Globulin [Mass ratio]Serum or plasma albumin/globulin mass ratioPike Community Hospitalerum or plasma anion gap determinationon 46-14-4751Huyfm gap [Moles/Vol]Serum or plasma anion gap determinationSt. Elizabeth HospitalBasophils Auto (Bld) [#/Vol]on 39-64-0825Gcslwrrno (Bld) [#/Vol]Automated basophil count0.0-0.1FCity HospitalBasophils/100 WBC Auto (Bld)on 17-02-0604Kygoivquj/100 WBC (Bld)Automated basophil %Low0.2-2.0[facility] HospitalEosinophils/100 WBC Auto (Bld)on 10-30-2024 Eosinophils/100 WBC (Bld)Automated eosinophil %Low0.9-7.0[facility] HospitalErythrocyte distribution width Auto (RBC) [Ratio]on 10-30-2024 Erythrocyte distribution width (RBC) [Ratio]Erythrocyte distribution width [Ratio] by Automated count11.0-15.0[facility] HospitalEstimated glomerular filtration rate (GFR) non- Americanon 28-60-9110TJK/1.73 sq M.predicted among non-blacks MDRD (S/P/Bld) [Vol rate/Area]Estimated glomerular filtration rate (GFR) non- AmericanLow>=60 mL/min/1.73m 2FCity HospitalGlobulin Calc (S) [Mass/Vol]on 91-11-3466Bvupvmfh (S) [Mass/Vol]Serum globulin measurement by calculation (mass/volume)[facility] HospitalHematocrit Auto (Bld) [Volume fraction]on 10-30-2024 Hematocrit (Bld) [Volume fraction]Hematocrit [Volume Fraction] of Blood by Automated xdnmdAao00.0-48.0[facility] HospitalHemoglobin [Mass/volume] in Bloodon 24-23-6639Bxplawfkun (Bld) [Mass/Vol]Hemoglobin [Mass/volume] in YpxvvBuo18.0-16.0[facility] HospitalLaboratory - Chemistry and Chemistry - challengeon 54-22-5385Ywrwxjw [Mass/Vol]2.8 g/dLLow 3.4-5.0[facility] HospitalALP [Catalytic activity/Vol]57 U/L46-116 [facility] HospitalALT [Catalytic activity/Vol]17 U/L14-59 [facility] HospitalAST [Catalytic activity/Vol]19 U/L15-37 [facility] HospitalBilirubin [Mass/Vol]0.2 mg/dL0.2-1.0[facility] HospitalCalcium [Mass/Vol]9.3 mg/dL8.5-10.1FCity HospitalChloride [Moles/Vol]100 mmol/F76-494SulniyktbSt. Elizabeth HospitalCO2 [Moles/Vol]49.9 mmol/LHigh21.0-32.0[facility] Creatinine [Mass/Vol]0.94 mg/dL0.55-1.02[facility] GFR/1.73 sq M.predicted MDRD (S/P/Bld) [Vol rate/Area]mL/min/{1.73_m2}>=60 mL/min/1.73m 2FCity HospitalGlucose [Mass/Vol]112 mg/dLHigh 74-106[facility] HospitalNatriuretic peptide B (Bld) [Mass/Vol] 306.0 pg/mL<=1800.0[facility] HospitalPotassium [Moles/Vol]3.7 mmol/L3.5-5.1FCity HospitalProtein [Mass/Vol]6.8 g/dL6.4-8.2 [facility] Hospitalodium [Moles/Vol]149 mmol/FKdvd654-264 [facility] HospitalUrea nitrogen [Mass/Vol]27.0 mg/dLHigh7.0-18.0 [facility] HospitalUrea nitrogen/Creatinine [Mass ratio]28.7 mg/mg [facility] HospitalLaboratory - Hematology and Cell countson 57-12-2686Cttnroet granulocytes/100 WBC (Bld)1.1 %High0.0-0.5FCity HospitalLeukocytes [#/volume] corrected for nucleated erythrocytes in Blood by Automated counon 71-36-8380MIJ corrected for nucl RBC Auto (Bld) [#/Vol]Leukocytes [#/volume] corrected for nucleated erythrocytes in Blood by Automated coun4.0-11.0[facility] HospitalLymphocytes Auto (Bld) [#/Vol]on 36-99-5341Evrrdcneheb (Bld) [#/Vol]Lymphocytes [#/volume] in Blood by Automated countLow1.2-3.8[facility] HospitalLymphocytes/100 WBC Auto (Bld)on 81-03-3584Trxpljrmncn/100 WBC (Bld)Lymphocytes/100 leukocytes in Blood by Automated lhnkfMij86.5-60.0[facility] HospitalH Auto (RBC) [Entitic mass]on 98-55-2373WLS (RBC) [Entitic mass]MCH [Entitic mass] by Automated count26.7-34.0[facility] HospitalHC Auto (RBC) [Mass/Vol]on 51-16-7559ICTJ (RBC) [Mass/Vol]MCHC [Mass/volume] by Automated dquxfQwv68.9-35.2FCity HospitalMCV Auto (RBC) [Entitic vol]on 45-68-2612VXZ (RBC) [Entitic vol]MCV [Entitic volume] by Automated countHigh 81.0-99.0[facility] HospitalMonocytes Auto (Bld) [#/Vol]on 64-14-4681Zrhduqyoz (Bld) [#/Vol]Automated blood monocyte countHigh0.3-0.8 [facility] HospitalMonocytes/100 WBC Auto (Bld)on 10-30-2024 Monocytes/100 WBC (Bld)Automated monocyte %1.7-12.0[facility] HospitalNeutrophils Auto (Bld) [#/Vol]on 76-53-6313Chjqhifmoow (Bld) [#/Vol] Neutrophils [#/volume] in Blood by Automated countHigh1.4-6.5FCity HospitalNeutrophils/100 WBC Auto (Bld)on 10-76-3448Cyaeznxoudn/100 WBC (Bld)Automated neutrophil %High43.0-75.0[facility] HospitalNo Panel Informationon 70-69-8133Drjhsojk I High Zgvtigdbmse24.9 pg/mL4.0-51.3 [facility] HospitalComment on above:CUT-OFF POINTS HAVE BEEN ESTABLISHED BASED ON THE FOURTHUNIVERSAL DEFINITION OF MYOCARDIAL INFARCTION. THE UPPERREFERENCE LIMIT (URL) OF TROPONIN, DEFINED THE 99THPERCENTILE OF cTnI DISTRIBUTION IN A REFERENCE POPULATION,HAS BEEN CONFIRMED THE DECISION THRESHOLD FOR MIDIAGNOSIS.99TH PERCENTILE = 51.4 PG/MLNOTE: HIGH-SENSITIVITY TROPONIN ASSAY IS NOT INTENDED TO BEUSED IN ISOLATION BUT SHOULD BE INTERPRETED IN CONJUNCTIONWITH OTHER DIAGNOSTIC AND CLINICAL INFORMATION.Eosinophils # (Auto)0.0 10 3/uL0.0-0.7FCity HospitalImmature Granulocyte # (Auto)0.12 10 3/uLHigh0.00-0.03[facility] HospitalPlatelet mean volume Auto (Bld) [Entitic vol]on 50-13-7616Xwfwmepj mean volume (Bld) [Entitic vol]Platelet mean volume [Entitic volume] in Blood by Automated countLow9.5-13.5 [facility] HospitalPlatelets Auto (Bld) [#/Vol]on 10-30-2024 Platelets (Bld) [#/Vol]Platelets [#/volume] in Blood by Automated -116 [facility] HospitalRBC Auto (Bld) [#/Vol]on 88-83-8729JDQ (Bld) [#/Vol]Erythrocytes [#/volume] in Blood by Automated countLow4.20-5.40[facility] Hospitalerum or plasma albumin/globulin mass ratioon 10-30-2024 Albumin/Globulin [Mass ratio]Serum or plasma albumin/globulin mass ratio [facility] Hospitalerum or plasma anion gap determinationon 33-74-0171[place] gap [Moles/Vol]Serum or plasma anion gap determinationSt. Elizabeth HospitalBasophils Auto (Bld) [#/Vol]on 29-75-1333Wuurdmmnl (Bld) [#/Vol]Automated basophil count0.0-0.1FC[facility] Hospital Basophils/100 WBC Auto (Bld)on 94-03-6488Vzisowsqf/100 WBC (Bld)Automated basophil %Low0.2-2.0[facility] HospitalEosinophils/100 WBC Auto (Bld)on 52-58-8200Shxkspaxngi/100 WBC (Bld)Automated eosinophil %Low0.9-7.0 [facility] HospitalErythrocyte distribution width Auto (RBC) [Ratio]on 27-34-9452Jaushzhqrpi distribution width (RBC) [Ratio]Erythrocyte distribution width [Ratio] by Automated count11.0-15.0[facility] HospitalEstimated glomerular filtration rate (GFR) non- Americanon 38-23-1453FKH/1.73 sq M.predicted among non-blacks MDRD (S/P/Bld) [Vol rate/Area]Estimated glomerular filtration rate (GFR) non- AmericanLow>=60 mL/min/1.73m 2FCity HospitalGlobulin Calc (S) [Mass/Vol]on 18-74-3972Uxweqcyu (S) [Mass/Vol]Serum globulin measurement by calculation (mass/volume)[facility] HospitalHematocrit Auto (Bld) [Volume fraction]on 05-00-3318Bcvdlryaer (Bld) [Volume fraction]Hematocrit [Volume Fraction] of Blood by Automated jnlyxCfe32.0-48.0[facility] HospitalHemoglobin [Mass/volume] in Bloodon 24-62-2743Cqugxkaszg (Bld) [Mass/Vol] Hemoglobin [Mass/volume] in QcdieMhv80.0-16.0[facility] Laboratory - Chemistry and Chemistry - challengeon 82-25-1314Objmpim [Mass/Vol] 2.8 g/dLLow3.4-5.0[facility] HospitalALP [Catalytic activity/Vol] 70 U/N39-903XpgjyvvcpSt. Elizabeth HospitalALT [Catalytic activity/Vol]17 U/L 14-59[facility] HospitalAST [Catalytic activity/Vol]16 U/L15-37 [facility] HospitalBilirubin [Mass/Vol]0.2 mg/dL0.2-1.0[facility] HospitalBilirubin.direct [Mass/Vol]0.1 mg/dL0.0-0.2FCity HospitalCalcium [Mass/Vol]9.4 mg/dL8.5-10.1FCity HospitalChloride [Moles/Vol]98 mmol/W68-098OdtuksizvSt. Elizabeth HospitalCO2 [Moles/Vol]49.3 mmol/LHigh21.0-32.0[facility] Creatinine [Mass/Vol]1.01 mg/dL0.55-1.02[facility] GFR/1.73 sq M.predicted MDRD (S/P/Bld) [Vol rate/Area]mL/min/{1.73_m2}>=60 mL/min/1.[address]m [address] [place], [place] [address]Glucose [Mass/Vol]134 mg/dLHigh 74-106[facility] HospitalNatriuretic peptide B (Bld) [Mass/Vol] 483.0 pg/mL<=1800.0[facility] HospitalPotassium [Moles/Vol]4.0 mmol/L3.5-5.1FCity HospitalProtein [Mass/Vol]7.6 g/dL6.4-8.2 [facility] [[facility]/Vol]147 mmol/LUuyi339-261 [facility] HospitalUrea nitrogen [Mass/Vol]21.0 mg/dLHigh7.0-18.0 [facility] HospitalUrea nitrogen/Creatinine [Mass ratio]20.8 mg/mg [facility] HospitalLaboratory - Hematology and Cell countson 25-60-3081Ekeogpqu granulocytes/100 WBC (Bld)1.2 %High0.0-0.5FCity HospitalLeukocytes [#/volume] corrected for nucleated erythrocytes in Blood by Automated counon [id number] corrected for nucl RBC Auto (Bld) [#/Vol]Leukocytes [#/volume] corrected for nucleated erythrocytes in Blood by Automated coun4.0-11.0[facility] HospitalLymphocytes Auto (Bld) [#/Vol]on 58-75-6596Objvjaeysbp (Bld) [#/Vol]Lymphocytes [#/volume] in Blood by Automated countLow1.2-3.8[facility] HospitalLymphocytes/100 WBC Auto (Bld)on 47-80-3656Zugzncfkuzw/100 WBC (Bld)Lymphocytes/100 leukocytes in Blood by Automated lbsanGsn25.5-60.0[facility] HospitalMCH Auto (RBC) [Entitic mass]on 02-07-0417HPM (RBC) [Entitic mass]MCH [Entitic mass] by Automated count26.7-34.0[facility] HospitalMCHC Auto (RBC) [Mass/Vol]on 67-53-8255STBH (RBC) [Mass/Vol]MCHC [Mass/volume] by Automated bcftnAeq34.9-35.2FCity HospitalMCV Auto (RBC) [Entitic vol]on 12-99-8173CDR (RBC) [Entitic vol]MCV [Entitic volume] by Automated countHigh 81.0-99.0[facility] HospitalMonocytes Auto (Bld) [#/Vol]on 95-33-5981Glpulqutr (Bld) [#/Vol]Automated blood monocyte count0.3-0.8[facility] HospitalMonocytes/100 WBC Auto (Bld)on 18-26-3538Yspgcyelv/100 WBC (Bld)Automated monocyte %1.7-12.0[facility] Neutrophils Auto (Bld) [#/Vol]on 43-92-2656Wxgvosmglrx (Bld) [#/Vol]Neutrophils [#/volume] in Blood by Automated countHigh1.4-6.5FCity HospitalNeutrophils/100 WBC Auto (Bld)on 90-28-1129Iublnotxjoe/100 WBC (Bld) Automated neutrophil %High43.0-75.0[facility] HospitalNo Panel Informationon 20-84-8160Eluzmxmoqwj # (Auto)0.0 10 3/uL0.0-0.7FCity HospitalImmature Granulocyte # (Auto)0.12 10 3/uLHigh0.00-0.03[facility] HospitalTroponin I High Itbtngtmhzr56.8 pg/mL4.0-51.3FCity HospitalComment on above:CUT-OFF POINTS HAVE BEEN ESTABLISHED BASED ON THE FOURTHUNIVERSAL DEFINITION OF MYOCARDIAL INFARCTION. THE UPPERREFERENCE LIMIT (URL) OF TROPONIN, DEFINED THE 99THPERCENTILE OF cTnI DISTRIBUTION IN A REFERENCE POPULATION,HAS BEEN CONFIRMED THE DECISION THRESHOLD FOR MIDIAGNOSIS.99TH PERCENTILE = 51.4 PG/MLNOTE: HIGH-SENSITIVITY TROPONIN ASSAY IS NOT INTENDED TO BEUSED IN ISOLATION BUT SHOULD BE INTERPRETED IN CONJUNCTIONWITH OTHER DIAGNOSTIC AND CLINICAL INFORMATION.Venous Blood Partial Pressure CO285.6 mm[Hg]Critically high40.0-52.0[facility] HospitalComment on above:RESULTS CALLED TO BRENDA NUNEZ RN at 0539 Venous Blood pH7.3857.330-7.430[facility] HospitalPlatelet mean volume Auto (Bld) [Entitic vol]on 63-52-6922Prockkms mean volume (Bld) [Entitic vol]Platelet mean volume [Entitic volume] in Blood by Automated countLow9.5-13.5 [facility] HospitalPlatelets Auto (Bld) [#/Vol]on 10-29-2024 Platelets (Bld) [#/Vol]Platelets [#/volume] in Blood by Automated rbmri849-288 [facility] HospitalRBC Auto (Bld) [#/Vol]on 66-17-8807WMB (Bld) [#/Vol]Erythrocytes [#/volume] in Blood by Automated countLow4.20-5.40[facility] Hospitalerum or plasma albumin/globulin mass ratioon 10-29-2024 Albumin/Globulin [Mass ratio]Serum or plasma albumin/globulin mass ratio [facility] Hospitalerum or plasma anion gap determinationon 06-47-5262Sgmyw gap [Moles/Vol]Serum or plasma anion gap determinationSt. Elizabeth HospitalBasophils/100 WBC Manual cnt (Bld)on 10-28-2024 Basophils/100 WBC (Bld)Basophils/100 leukocytes in Blood by Manual countLow 0.2-2.0[facility] HospitalBlood Cultureon 18-44-6282Uihbhzds identified Cx Nom (Bld)Gram Stain Gram Positive Cocci in Clusters ORGANISM: Staphylococcus sp coag neg (O:STACN) Aerobic TOBY Charge (PCMIC38) SUSCEPTIBILITY ORGANISM: O:STACN ANTIBIOTIC INTERPRETATION TOBY Azithromycin S <2 Ciprofloxacin S <1 Daptomycin S <0.5 Levofloxacin S <1 Linezolid S <1 Oxacillin S <0.25 Penicillin S <0.03 Tetracycline S <4 Trimethoprim/Sulfamethoxazole S <0.5 Vancomycin S 1 S = [...] RESISTANT TO ALL B-LACTAM DRUGS. PERFORMED BY: [facility] [address] [id number] PATHOLOGIST FILL TECHNICIAN SAPPHIRE MCCULLOUGH M.D.NormalThe [facility] Physician GroupComment on above: Performed By: #### CUBLD #### [facility] [address] [id number] USAEosinophils/100 WBC Manual cnt (Bld)on 10-28-2024 Eosinophils/100 WBC (Bld)Eosinophils/100 leukocytes in Blood by Manual countLow 0.9-7.0[facility] HospitalErythrocyte distribution width Auto (RBC) [Ratio]on 89-59-1685Zegnhbgsmjt distribution width (RBC) [Ratio] Erythrocyte distribution width [Ratio] by Automated count11.0-15.0[facility] HospitalEstimated glomerular filtration rate (GFR) non- Americanon 94-74-6843NLW/1.73 sq M.predicted among non-blacks MDRD (S/P/Bld) [Vol rate/Area]Estimated glomerular filtration rate (GFR) non- >=60 mL/min/1.73m 2FCity HospitalHematocrit Auto (Bld) [Volume fraction]on 55-27-1560Fkqeiwmroe (Bld) [Volume fraction]Hematocrit [Volume Fraction] of Blood by Automated voqirOzq61.0-48.0[facility] HospitalHemoglobin [Mass/volume] in Bloodon 25-18-3466Ibqzxmecez (Bld) [Mass/Vol]Hemoglobin [Mass/volume] in QqflvHcm79.0-16.0[facility] HospitalLaboratory - Chemistry and Chemistry - challengeon 22-63-3054DEW4 (Bld) [Moles/Vol]51.0 mmol/LHigh22.0-26.0[facility] Bilirubin Ql (U)NegativeNEGATIVESt. Elizabeth HospitalGlucose (U) [Mass/Vol]NegativeNEGATIVESt. Elizabeth HospitalKetones Ql (U) NegativeNEGATIVESt. Elizabeth HospitalpH (U)8.0 [pH]5.0-9.0[facility] Hospitalpecific gravity (U) [Rel density]1.0151.005-1.025 [facility] HospitalUrobilinogen Qn (U)0.2 {Cecil'U}/dL0.2-1.0 [facility] HospitalNatriuretic peptide B (Bld) [Mass/Vol]425.0 pg/mL<=1800.0[facility] HospitalCalcium [Mass/Vol]9.4 mg/dL 8.5-10.1FCity HospitalChloride [Moles/Vol]100 mmol/L98-107 [facility] HospitalCO2 [Moles/Vol]44.6 mmol/LHigh21.0-32.0 [facility] HospitalCreatinine [Mass/Vol]0.89 mg/dL0.55-1.02 [facility] HospitalGFR/1.73 sq M.predicted MDRD (S/P/Bld) [Vol rate/Area]mL/min/{1.73_m2}>=60 mL/min/1.73m 2FCity Hospital Glucose [Mass/Vol]132 mg/vPWucv44-526CzimmzfhbSt. Elizabeth HospitalLactate [Moles/Vol]0.8 mmol/L0.4-2.0[facility] HospitalPotassium [Moles/Vol]3.8 mmol/L3.5-5.1FUC Healthodium [Moles/Vol] 146 mmol/PMuoz968-612KxzjizsckSt. Elizabeth HospitalUrea nitrogen [Mass/Vol] 20.0 mg/dLHigh7.0-18.0[facility] HospitalUrea nitrogen/Creatinine [Mass ratio]22.5 mg/mgSt. Elizabeth HospitalLaboratory - Hematology and Cell countson 35-05-2465Ehcdblgdykl/100 WBC (Bld)8.0 %Low20.5-60.0[facility] HospitalMonocytes/100 WBC (Bld)8.0 %1.7-12.0[facility] HospitalLaboratory - Microbiology and Antimicrobial susceptibilityon 21-35-7907GJVS-CoV-2 (COVID-19) RNA JOSE A+probe Ql (Unsp spec)PositiveAbnormal NEGATIVESt. Elizabeth HospitalComment on above:This test has not been FDA cleared or approved, but has beenauthorized [...] under section 564(b)(1) of theAct, 21 U.S.C. 360bbb- 3(b)(1), unless the declaration isterminated or authorization is revoked sooner. Laboratory - Specimen informationon 05-78-6887Aqksnakuyf (U)CLEARCLEARFCity HospitalColor (U)LT. YELLOWYELLOWSt. Elizabeth HospitalLaboratory - Urinalysison 33-15-8926Oblqjsgwa esterase Test strip Ql (U) NegativeNEGATIVESt. Elizabeth HospitalMucus Ql (Urine sed)NONE SEEN NONE SEENSt. Elizabeth HospitalNitrite Ql (U)NegativeNEGATIVE [facility] HospitalProtein Ql (U)NegativeNEG/TRACESt. Elizabeth HospitalLeukocytes [#/volume] corrected for nucleated erythrocytes in Blood by Automated counon 20-42-9809UAO corrected for nucl RBC Auto (Bld) [#/Vol]Leukocytes [#/volume] corrected for nucleated erythrocytes in Blood by Automated counHigh4.0-11.0[facility] HospitalH Auto (RBC) [Entitic mass]on 88-04-1946MEU (RBC) [Entitic mass]MCH [Entitic mass] by Automated count26.7-34.0[facility] HospitalHC Auto (RBC) [Mass/Vol]on 48-97-4085FKFF (RBC) [Mass/Vol]MCHC [Mass/volume] by Automated count29.9-35.2FSelect Medical Cleveland Clinic Rehabilitation Hospital, AvonV Auto (RBC) [Entitic vol]on 33-12-3057YTU (RBC) [Entitic vol]MCV [Entitic volume] by Automated countHigh 81.0-99.0[facility] HospitalNo Panel Informationon 12-28-0240Bzgoj TestPositivePOSITIVESt. Elizabeth HospitalArterial Blood Base Excess 25.6 mmol/LHigh<2.0-2.0[facility] HospitalArterial Blood Oxygen Croiimwgjf70.1 %[facility] HospitalArterial Blood Partial Pressure CO289.4 mm[Hg]Critically high35.0-45.0[facility] HospitalComment on above:RESULTS CALLED TO YADIRA BERMEO(RN) IN ICUArterial Blood Partial Pressure O281.6 mm[Hg]80.0-100.0[facility] HospitalArterial Blood pH7.3647.350-7.450St[facility] HospitalBlood Gas Mode BiPAP16/8 [facility] HospitalBlood Gas Sample SiteLEFT RADIALSt. Elizabeth HospitalBlood Gas Set Respiration Jdmq20VwnumbjczSt. Elizabeth HospitalFiO240 %[facility] HospitalOxygen Delivery Device BIPAPSt. Elizabeth HospitalUrine BacteriaNONE SEEN #/HPFNONE SEEN [facility] HospitalUrine Culture ReflexedNOSt. Elizabeth HospitalUrine Occult BloodNegativeNEGPremier Health Miami Valley Hospital NorthUrine Other CastsNONE SEEN #/LPFNONE [facility] Urine Other CrystalsNone Seen #/HPFNone [facility] Urine RBCNONE SEEN #/HPF0-2FCity HospitalUrine Squamous Epithelial CellsRARE #/LPFNONE/RARESt. Elizabeth HospitalUrine WBC NONE SEEN #/HPFNONE [facility] HospitalBlood Gas Liter Flow6 [facility] HospitalAbsolute Basophils (Manual)0.00 10 3/uL 0.00-0.10[facility] HospitalBedside Influenza Type A Antigen NegativeSt. Elizabeth HospitalComment on above:Negative for Flu A protein antigen. Infection due to Flu Acannot be ruled out. Flu A antigen in the sample may bebelow the detection limit of the test.Bedside Influenza Type B AntigenNegativeSt. Elizabeth HospitalComment on above:Negative for Flu B protein antigen. Infection due to Flu Bcannot be ruled out. Flu B antigen in thesample may bebelow the detection limit of the test.Eosinophils # (Manual) 0.00 10 3/uL0.00-0.70[facility] HospitalLymphocytes # (Manual)1.04 10 3/uLLow1.20-3.80[facility] HospitalMonocytes # (Manual)1.04 10 3/uLHigh0.30-0.80[facility] Hospitalegmented Neutrophils # (Manual)10.92 10 3/uLHigh1.4-6.5FCity HospitalTroponin I High Wekzejsfnkc53.3 pg/mL4.0-51.3FCity HospitalComment on above: CUT-OFF POINTS HAVE BEEN ESTABLISHED BASED ON THE FOURTHUNIVERSAL DEFINITION OF MYOCARDIAL INFARCTION. THE UPPERREFERENCE LIMIT (URL) OF TROPONIN, DEFINED THE 99THPERCENTILE OF cTnI DISTRIBUTION IN A REFERENCE POPULATION,HAS BEEN CONFIRMED THE DECISION THRESHOLD FOR MIDIAGNOSIS.99TH PERCENTILE = 51.4 PG/MLNOTE: HIGH-SENSITIVITY TROPONIN ASSAY IS NOT INTENDED TO BEUSED IN ISOLATION BUT SHOULD BE INTERPRETED IN CONJUNCTIONWITH OTHER DIAGNOSTIC AND CLINICAL INFORMATION.Platelet mean volume Auto (Bld) [Entitic vol]on 10-28-2024 Platelet mean volume (Bld) [Entitic vol]Platelet mean volume [Entitic volume] in Blood by Automated countLow9.5-13.5FCity HospitalPlatelets Auto (Bld) [#/Vol]on 26-69-0598Jmithdiyi (Bld) [#/Vol]Platelets [#/volume] in Blood by Automated -952WsefvzrqtSt. Elizabeth HospitalRBC Auto (Bld) [#/Vol]on 72-86-7905MSF (Bld) [#/Vol]Erythrocytes [#/volume] in Blood by Automated countLow4.20-5.40[facility] Hospitalegmented neutrophils/100 WBC Manual cnt (Bld)on 99-96-4984Nxradgsxq neutrophils/100 WBC (Bld)Manual blood segmented neutrophils/100 quhvhuqeeeArvh94.0-75.0[facility] Hospitalerum or plasma anion gap determinationon 81-42-3889Lcppe gap [Moles/Vol]Serum or plasma anion gap determinationSt. Elizabeth Hospital Vital Signs Date TimeVital SignValuePerforming GjrwqsyelBtqiwxgx71-52-8697 09:30-0400 Diastolic blood jvlgatcz75 mm[Hg]Paulina James MD Work Phone: 1(805)[address] [place], [place] 5027610-16-2025 09:30-0400 Heart rate87 /minPaulina James MD Work Phone: [phone])[address] [place], [place] 5027610-16-2025 09:30-0400 SaO2% (BldA) [Mass fraction]90 %Paulina James MD Work Phone: 1(419)[address] [place], [place] 5027610-16-2025 09:30-0400 Systolic blood ojfgygnh001 mm[Hg]Paulina James MD Work Phone: 1(419)[address] [place], [place] 5027610-16-2025 09:23-0400 Body .02 cmPaulina James MD Work Phone: 1(080)[address] [place], [place] 5027610-16-2025 09:23-0400 Body mass index (BMI) [Ratio]37.3 kg/b1FyuysvPaulina James MD Work Phone: 1(954)[address] [place], [place] 5027610-16-2025 09:23-0400 Body wdyact89.7 kgPaulina James MD Work Phone: 1(537)[address] [place], [place] 5027610-07-2025 14:22-0400 Diastolic blood mgoybqns35 mm[Hg]Paulina James MD Work Phone: 1(419)[address] [place], [place] 5027610-07-2025 14:22-0400 Systolic blood xfcghlgo346 mm[Hg]Paulina James MD Work Phone: [phone])[address] [place], [place] 5027610-07-2025 14:15-0400 Body ubhikh044.02 cmPaulina James MD Work Phone: 1(099)[address] [place], [place] 5027610-07-2025 14:15-0400 Body mass index (BMI) [Ratio]37.5 kg/a7HippvfPaulina James MD Work Phone: 1([phone])[address] [place], [place] 5027610-07-2025 14:15-0400 Body xluzyhsyhyj56.6 [degF]Paulina James MD Work Phone: 1(007)[address] [place], [place] 5027610-07-2025 14:15-0400 Body .16 kgPaulina James MD Work Phone: 1(430)[address] [place], [place] 5027610-07-2025 14:15-0400 Heart rate88 /Gm James MD Work Phone: 1(897)[address] [place], [place] 5027610-07-2025 14:15-0400 SaO2% (BldA) [Mass fraction]84 %Paulina James MD Work Phone: 1(418)[address] [place], [place] 5027607-01-2025 09:30-0400 Body tzkawp233.02 cmPaulina James MD Work Phone: 1(767)[address] [place], [place] 5027607-01-2025 09:30-0400 Body mass index (BMI) [Ratio]36.8 kg/e2EgzphzPaulina James MD Work Phone: 1(540)[address] [place], [place] 5027607-01-2025 09:30-0400 Body fchyhv30.34 kgPaulina James MD Work Phone: 1(436)[address] [place], [place] 5027607-01-2025 09:30-0400 Diastolic blood hfzajyur37 mm[Hg]Paulina James MD Work Phone: 1(122)[address] [place], [place] 5027607-01-2025 09:30-0400 Heart rate88 /Gm James MD Work Phone: 1(352)[address] [place], [place] 5027607-01-2025 09:30-0400 Respiratory rate14 /Gm James MD Work Phone: 1(965)[address] [place], [place] 5027607-01-2025 09:30-0400 SaO2% (BldA) [Mass fraction]91 %Paulina James MD Work Phone: 1([phone])[address] [place], [place] 5027607-01-2025 09:30-0400 Systolic blood mm[Hg]Paulina James MD Work Phone: 1(864)[address] [place], [place] 5027601-13-2025 14:03-0500 Body .02 cmSt[facility] Hospital01-13-2025 14:03-0500Body mass index (BMI) [Ratio]36.3 kg/l9QbtxazxeoSt. Elizabeth Hospital01-13-2025 14:03-0500Body fryjliwnzvs78.2 [degF][facility]01-13-2025 14:03-0500Body gmmokm50.98 kgSt. Elizabeth Hospital01-13-2025 14:03-0500Diastolic blood oezegzuv21 mm[Hg][facility] 11-08-2024 14:03-0500Heart rate93 /minSt. [facility] Hospital 11-08-2024 14:035921QhD6% (BldA) [Mass fraction]89 %[facility]01-13-2025 14:03-0500Systolic blood cnybqwbc600 mm[Hg][facility] Encounters Encounter DateEncounter TypeCare ProviderFacilityStart: 08-11-2025 End: 08-75-7838kbbuipulizVwvrna E Braun MD Work Phone: [facility] Work Phone: Start: 08-11-2025 End: 60-26-4354Ojhqbaz encounter procedurePaulina James MD-[facility] Work Phone: Start: 61-04-7745Tsy-patient / Non-visitCatherine Roger [facility] Work Phone: Start: 08-02-2025 End: 41-77-2326amogwmmjdtUztfmc E Braun MD Work Phone: [facility] Work Phone: Start: 08-02-2025 End: 70-34-5236Ilyyjpf encounter procedurePaulina James MD-[facility] Work Phone: Start: 63-86-3732Svfzibf encounter procedurePaulina James MD Work Phone: [facility]: 04-26-2025 End: 69-46-0296naytfjulfeBgfbrr E Braun MD Work Phone: [facility] Work Phone: Start: 04-26-2025 End: 72-04-3101Rbpbfan encounter procedurePaulina James MD-[facility] Work Phone: Start: 11-08-2024 End: 05-81-5582spslmextoiIgglibpulProMedica [facility] Work Phone: Start: 11-08-2024 End: 01-69-6856Egsysok encounter procedureAt[facility] Work Phone: Start: 46-97-3369Rmw-patient / Non-visitAt[facility] Work Phone: Start: 62-99-3037Pyb-patient / Non-visitAt[facility] Physician [facility] Work Phone: Start: 73-88-4588Edw-patient / Non-visitF[facility] Work Phone: Start: 45-93-7850Xbe-patient / Non-visitAt[facility] Work Phone: Start: 10-28-2024 End: 53-97-5522iyahgcnoqkBtlyssl D [facility] Work Phone: Start: 10-28-2024 End: 77-24-4179Beawrglu ReferredKeegan [facility]- LAB Path Spec [place] HospStart: 94-86-1269Qhw-patient / Non-visitAt[facility] Work Phone: Start: 11-22-2022(Televisit) [facility] BashirScotland Memorial Hospitaltart: 11-22-2022 End: 37-58-2329abwnukqekzTwrimb Braun Other [employer] Other Start: 07-23-2022 End: 56-99-6362vdmvntonkvZF HESHAM V WESTFacility:H1 Plan of Treatment DateCare ActivityDetailAuthorStart: 45-63-6150Xtgotxc referralMer[facility] Work Phone: Start: 66-99-9256Hxbhqick identified in Blood by CultureBlood CulturePike Community Hospitaltart: 48-40-7655NgsuurgagSt. Elizabeth HospitalComprehensive metabolic 2000 panel - Serum or Plasma [facility] HospitalPatient referralMercy Health St[facility] Work Phone: [facility] Payers DatePayer CategoryPayerPolicy [id number]-[id number] Health [id number] Social History DateTypeDetailFacilitySex Assigned At [employer] Other Start: 03-09-2024 End: 17-64-6725Bavfqvg smoking status NHISEx-smoker (finding)[facility] Hospitaltart: 10-30-2024 End: 13-83-2890IgkOwkgki (finding)[facility] Hospitaltart: 90-24-8280Oqd Assigned At [facility] Evaluation note 11-22-2022 Note Date & ImzpNixwKcnfflqn29-40-6842 Evaluation note* Encounter Date Diagnosis Assessment Notes Treatment Notes Treatment Clinical Notes Oct, COPD with exacerbation (ICD-10 - J44.1) Stefany understands to seek care through the ER if her symptoms worsen. She understands to contact Dr. Mireles if the cough continues. She states she is compliant with wearing her oxygen and using her controller and rescue medicines. [employer] Other Clinical Note 07-23-2022 Note Date & CnrfDbfiGnqkhfgm78-45-9983 NotePROCEDURE: XR KNEE LT 4V or > COMPARISON: None. HISTORY: Pain [...] Electronically authenticated by: HESHAM HALE Date: 2022-07-23 17:59[facility] Evaluation note 11-21-2017 Note Date & BgigNcvuXqatzvvr92-44-8873 Evaluation note* Diagnosis Onset Date Resolution Status Admit Date COPD (chronic obstructive pulmonary disease) Oct acuteOctober 2024 9:22amOxygen dependentacuteOctober 2024 9:22am [facility] Work Phone: Evaluation note Note Date & TypeNoteFacilityEvaluation noteNo assessment information available [facility] Work Phone: Evaluation note Note Date & TypeNoteFacilityEvaluation note* Diagnosis Onset Date Resolution Status Admit Date Essential (primary) hypertension acuteJuly 2024 10:07am [facility] Work Phone: Hospital Discharge instructions Note Date & TypeNoteFacilityHospital Discharge instructionsAmbulatory Orders* Referral to Pulmonology Time Frame: 08/11/25, Location: None Selected [facility] Work Phone: Reason for referral (narrative) Note Date & TypeNoteFacilityReason for referral (narrative)No reason for referral information availableMercy Health St. [facility] Work Phone: Summary Purpose Family History No Family History Records FoundNo Family History Records Found Advance Directives Advance Directive Response Recorded Date/ Time Advance Directives No March 09 9:34am Advance Directive Response Recorded Date/ Time Advance Directives No March 09 10:34am Chief Complaint and Reason for Visit Chief Complaint Admit Date Shakiness/Congestion August 02, 2025 2 :10pm Amb Documentation August 09, 2025 8 :48am ER F/U, [facility] August 11, 2025 9 :22am Reason for Visit Admit Date COPD (chronic obstructive pulmonary dise ase) August 11, 2025 9:22am Oxygen dependent August 11, 2025 9 :22am Chief Complaint Admit Date Shakiness/Congestion August 02, 2025 2 :10pm Chief Complaint Admit Date wellness April 26, 2025 10:07 am Reason for Visit Admit Date Essential (primary) hypertension April 10:07am Chief Complaint Admit Date Amb Documentation November 01, 2024 9: 30am [facility], Covid pnemonia November 08, 2024 1 :51pm Additional Source Comments INFORMATION SOURCE (unrecogn ized section and content) DATE CREATED AUTHOR 07/29/2022 [facility] DATE CREATED AUTHOR AUTHOR'S ORGANIZ ATION 11/06/2024 [facility] REASON FOR VISIT (unrecogniz ed section and content) cough Care Teams (unrecognized sec tion and content) Team Status: Active Member Role Status Dates Paulina James MD Primary Care Provider Active Team Status: Inactive Member Role Status Dates Paulina James MD Primary Care Provider Active Start: April 26, 2025 End: April 26, 2025Paulina James MDAttending ProviderActiveStart: April 26, 2025 End: April 26, 2025 [...] James MD Primary Care Provider Active Start: August 02, 2025 End: August 02, 2025Luciana Cabral ProviderActiveStart: August 02, 2025 End: August 02, 2025 Team Status: Active Member Role Status Dates Paulina James MD Primary Care Provider Active Start: August 09, 2025 Gladys Venkatesh Duran ProviderActiveStart: August 09, 2025 Team Status: Inactive Member Role Status Dates Paulina James MD Primary Care Provider Active Start: August 11, 2025 End: August 11, 2025Luciana Cabral ProviderActiveStart: August 11, 2025 End: August 11, 2025 Goals (unrecognized section and content) Goals [...] BE BASED ON THE PRIMARY CLINICAL RECORDS. [facility] [employer] [facility]. provides no warranty or guarantee of the accuracy or completeness of information in this document.
--- NOTE | 2025-09-21 11:36 | ECG_ITS ---
[facility] Test Date: 2025-09-21 Pat Name: SUZETTE GUSTAFSON Department: Room: - Gender: Female Installation Tech: : [id number] Requested By: Marcio Mireles Order Number: [id number] Reading MD: ADRIAN GAUTAM M.D. Measurements Intervals [place] Rate: 86 P: 79 VT: 158 QRS: -28 QRSD: 92 T: 77 QT: 358 QTc: 429 Interpretive Statements SINUS RHYTHM WITH OCCASIONAL SUPRAVENTRICULAR PREMATURE COMPLEXES BORDERLINE LEFT AXIS DEVIATION [QRS AXIS < -20] Borderline ECG Compared to ECG 08/02/2025 15:31:49 No significant changes Electronically Signed On 09-21-2025 19:11:16 EST by ADRIAN GAUTAM M.D.
== END 2025-09-21 11:29 | disposition home or self-care (01) ==
LOC: CARD 11:29
PROVIDERS: PCP Family Medicine; Visit Provider Internal Medicine
DX: I49.9 Cardiac arrhythmia, unspecified (principal)
CPT/HCPCS: 93005

== ENCOUNTER 2025-10-25 10:58 | Outpatient (OUT) | payer MEDICARE, OTHER, SELFPAY ==
--- OUTSIDE RECORDS SUMMARY | 2024-07-20 08:00 | XMS_ITS ---
Author Organization [facility] in [place] Address [address] [place] [address] Care Team Providers Care Director Of Logistics Name Role Phone Erika NASSAR, Paulina Primary Care Provider Unavailab aspen Mireles Marcio Unavailable [phone] REASON FOR VISIT 6MO-COPD, O2 Encounters Encounter Location Date Provider Diagnosis Pulmonary Medicine Tower [address] [place] [address] 07/20/2024 Marciopatricia Adrian Plan Of Treatment No Information Progress Notes * Stefany GUSTAFSON MDOB: [birth year] (80 yo F)Acc No.[id number]:07/20/2024 UNLOCKED PROGRESS NOTE Follow Up Patient: Stefany LAMBERT Gabriel :?FIDENCIO AlvaradoOB:1945???Age:79 Y ???Sex:FemaleDate:4Phone:[phone]:[id number] [facility] [address], [facility]Pcp:Paulina James MD Subjective: * Chief Complaints: * 1 . 6MO-COPD, O2. * Medical History: Objective: * Vitals: Assessment: Plan: * Treatment: * * Electronic signature of Marcio Mireles DO on 10/25/2025 at 11:01 AM ESTSign off status: PendingVisit Status:?R/S By O/P (Rescheduled by Office/Provider) * Provider: N athan Samsa, DO Date: 0 07/20/2024 Generated for Printing/Faxing/eTransmitting on:?10/25/2025 11:01 AM EST
--- OUTSIDE RECORDS SUMMARY | 2025-10-25 11:01 | XMS_ITS | Encounter Summary ---
Author Organization [facility] Address [address] [facility], [address] [place] [address] Care Team Providers Care Curtain Supervisor Name Role Phone Paulina James MD Primary Care Provider [phone] Encounter Details DateTypeDepartmentCare Team (Latest Contact Info)Loassbyqrdh75/18/2025Abstract [facility] Pulmonology [address] [place] [address] [place] [address] NguyễnBelaMarcio, DO [address] [facility] [address] [place] [address] Social History Tobacco UseTypesPacks/DayYears UsedDateSmoking Tobacco: [id number] - 2010Smokeless Tobacco: FormerAlcohol UseStandard Drinks/WeekCommentsYes0 (1 standard drink = 0.6 oz pure alcohol)AUDIT-CAnswerDate RecordedQ1: How often do you have a drink containing alcohol?Monthly or less09/14/2025Q2: How many drinks containing alcohol do you have on a typical day when you are drinking?1 or 2 09/14/2025Q3: How often do you have six or more drinks on one occasion?Never 09/14/2025CommentsUnknownSex and Gender InformationValueDate RecordedSex Assigned at BirthNot on fileLegal LswGfswln20/10/2013 11:49 AM ESTGender IdentityNot on fileSexual OrientationNot on fileOccupationIndustryJob Start Date Job End DateHealthcare aideNot on fileNot on fileNot on filedocumented as of this encounter Plan of Treatment DateTypeDepartmentCare Team (Latest Contact Info)Effmjfzuyys24/17/2026 1:00 PM ESTOffice Visit [facility] [address] [facility] [address] [place] [address] Aline MarcioDO [address] [facility] [address] [place] [address] 3 [place] F/U COPD, O2.documented as of this encounter Visit Diagnoses Not on filedocumented in this encounter Additional Health Concerns AssessmentNoted TimeA fall risk assessment has been completed for the patient 09/14/2025 3:04 PM ESTdocumented as of this encounter Care Teams Team MemberRelationshipSpecialtyStart DateEnd Date Paulina James MD [address] [place] [id number] PCP - GeneralFamily Ajhdbabb80/6/25documented as of this encounter
--- OUTSIDE RECORDS SUMMARY | 2025-10-25 11:01 | XMS_ITS | Clinical Summary ---
Author Organization [facility] Address [address] [facility], [address] [place] [address] Care Team Providers Care Trainman Name Role Phone Paulina James MD Primary Care Provider [phone] Allergies No known active allergies Medications MedicationSigDispense [...] into the lungs daily 3 each 5Active Active Problems ProblemNoted DateDiagnosed DateCentrilobular emphysema Assessment [...] Present on soft windows. In the [facility] solitary pulmonary nodule risk calculator, the risk [...] & Plan (09/14/2025 5:36 PM EST): A sjvl-ud-mpcw encounter was performed with the patient today [...] O2 and all associated supplies. Encounters DateTypeDepartmentCare HusuVsnrrgzufvm95/18/2025bstract [facility] Pulmonology [address] [facility] [address] [place] [address] Marcio Mireles DO 10/11/2025Telephone [facility] Pulmonology [address] [place] [address] [place] [address] Marcio Mireles DO needs order09/14/2025 3:00 PM ESTOffice Visit [facility] [address] [facility] [address] [place] [address] Marcio Mireles DO Centrilobular emphysema (Primary Dx); Chronic respiratory failure with hypoxia; Solitary pulmonary nodule; Irregular heart rhythm; Encounter for end of life care09/09/2025Telephone [facility] Pulmonology [address] [facility] [address] [place] [address] Marcio Mireles DO Stiolto Cost09/01/2025Refill [facility] Pulmonology [address] [place] [address] [address] [place] [address] Marcio Mireles DO Medication Refillfrom Last 3 Months Family History Medical HistoryRelationNameCommentsHypertensionFatherLung CancerFatherCOPDMother RelationNameStatusCommentsFatherMother Social History Tobacco UseTypesPacks/DayYears UsedDateSmoking Tobacco: [id number] - 2009Smokeless Tobacco: Former Tobacco Cessation:Counseling Given: [...] RecordedSex Assigned at BirthNot on file Legal JrvQbdytu10/10/2013 11:49 AM ESTGender IdentityNot on fileSexual OrientationNot on fileOccupationIndustryJob Start DateJob End DateHealthcare aideNot on fileNot on fileNot on file Last Filed Vital Signs Vital SignReadingTime TakenCommentsBlood Jepluxlz405/8209/14/2025 3:01 PM EST Uivss458109/14/2025 3:01 PM BIUKomrvyarquc94.2 ??C (97.1 ??F)09/14/2025 3:01 PM ESTRespiratory Yqeq3727 3:01 PM ESTOxygen Tltzttuwqp86%09/14/2025 3:01 PM EST5L I3Rmhkdnv Oxygen Concentration--Omboyk45.7 kg (200 lb)09/14/2025 3:01 PM ESTPatient subcqrxuPxkyzc555 cm (5' 3 )09/14/2025 3:01 PM ESTBody Mass Index 35.43111/14/2024 3:01 PM EST Plan of Treatment DateTypeDepartmentCare Team (Latest Contact Info)Qrbyjbeqypg43/17/2026 1:00 PM ESTOffice Visit [facility] [address] [facility] [address] [place] [address] [place] [address] [place] [address] [address] [place] [address] 3 [place] F/U COPD, O2.Health MaintenanceDue DateLast DoneCommentsDepression Screen 1959Hepatitis C xudnde5407/03/1965DTaP/Tdap/Td vaccine (1 - Tdap)1966 Pneumococcal 50+ years Vaccine (1 of 2 - PCV)1966Shingles vaccine (1 of 2) 1997DEXA (modify frequency per FRAX score)2002Respiratory Syncytial Virus (RSV) or age 60 yrs+ (1 - 1-dose 75+ series)2022Flu vaccine (#1)5COVID-19 Vaccine ( - season)/, 12/21/2020nnual Wellness Visit (Medicare)08/17/2025Hepatitis A vaccineAged Out [...] topic Insurance Advance Directives NameRelationshipHealthcare Agent RelationshipCommunicationWynn EvelynSpouse Primary Decision Maker* * Care Teams Team MemberRelationshipSpecialtyStart DateEnd Date Paulina James MD [facility] [place] [address] PCP - GeneralFamily Nopavwxv43/6/25
--- OUTSIDE RECORDS SUMMARY | 2025-10-25 11:01 | XMS_ITS | Clinical Summary ---
Author Organization [facility] Address [address] [place] [address] Care Team Providers Care Bartacker Name Role Phone Paulina James MD Primary Care Provider [phone] Social History Tobacco UseTypesPacks/DayYears UsedDateSmoking Tobacco: Never Assessed CommentsUnknownSex and Gender InformationValueDate RecordedSex Assigned at Not on fileLegal FhnFlzglt93/15/2023 8:15 PM EDTGender IdentityNot on fileSexual OrientationNot on file Plan of Treatment Not on file Insurance Care Teams Team MemberRelationshipSpecialtyStart DateEnd Date Paulina James MD [address] [place] [address] PCP - GeneralFamily Medicine02/18/25
--- OUTSIDE RECORDS SUMMARY | 2025-10-25 11:01 | XMS_ITS | Encounter Summary ---
Author Organization [facility] Address [address] [facility], [address] [place] [address] Care Team Providers Care Manager Front Office Name Role Phone Paulina James MD Primary Care Provider Reason for Referral * Other (Routine) - CanceledSpecialtyDiagnoses / ProceduresReferred By Contact Referred To ContactAccess Diagnoses Chronic respiratory failure with hypoxia (HCC) Procedures 6 Minute Walk Test Marcio Mireles DO [address] [place] [address] [address] [place] [address] Phone: tel: fax: Referral IDStatusReasonStart DateExpiration DateVisits RequestedVisits [id number] Reason for Visit * ReasonOnset DateCommentsneeds order10/11/2025 Encounter Details DateTypeDepartmentCare Team (Latest Contact Info)Bhcouskvsfe49/16/2025Telephone [facility] Pulmonology [address] [facility] [address] [place] [address] Marcio Mireles DO [address] [place] [address] [address] [place] [address] needs order Social History Tobacco UseTypesPacks/DayYears UsedDateSmoking Tobacco: [id number] - 2009Smokeless Tobacco: FormerAlcohol UseStandard Drinks/WeekCommentsYes0 (1 standard drink [...] InformationValueDate RecordedSex Assigned at BirthNot on fileLegal BkbJslzzr17/10/2013 11:49 AM ESTGender IdentityNot on fileSexual OrientationNot on fileOccupationIndustryJob Start Date Job End DateHealthcare aideNot on fileNot on fileNot on filedocumented as of this encounter Plan of Treatment DateTypeDepartmentCare Team (Latest Contact Info)Lrrgwcokxcl02/17/2026 1:00 PM ESTOffice Visit [facility] [address] [place] [address] [place] [address] [place] [address] 3 [place] F/U COPD, O2.NameTypePriorityAssociated DiagnosesOrder Schedule6 Minute Walk TestPFTRoutine Chronic respiratory failure with hypoxia (HCC) Ordered: 10/11/2025documented as of this encounter Visit Diagnoses Diagnosis Chronic respiratory failure with hypoxia (HCC)- Primary Chronic respiratory failure documented in this encounter Additional Health Concerns AssessmentNoted TimeA fall risk assessment has been completed for the patient 09/14/2025 3:04 PM ESTdocumented as of this encounter Care Teams Team MemberRelationshipSpecialtyStart DateEnd Date Paulina James MD [address] [place] [address] PCP - GeneralFamily Jvjkzmjt33/6/25documented as of this encounter
--- OUTSIDE RECORDS SUMMARY | 2025-10-25 11:01 | XMS_ITS | Patient Health Record ---
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 Name Role Phone Erika NASSAR, Paulina Primary Care Provider Unavail Marcio Schmidt Unavailable [phone] Allergies No Known Allergies Results Component Value Reference Range Notes Box Test Reviewed date:11/02/2024 12:37:27 PM Interpretation: Performing Lab: Notes/Report: BLOOD CX ANAEROBIC BOTTLE [facility] , BOX Test Sent Out BLOOD CULTURE BOX Test Reference LabFIRELANDSBOX Test Date Sent10/28/24BOX Test ResultSEE SCANNED REPORTPerforming Lab:see noteML - [facility] LBCT angio chest Reviewed date:10/31/2024 08:32:20 PM Interpretation: Performing Lab: Notes/Report: Source Facility: [facility] [place] [address] [place] [address] CT Scan Report Signed Patient: STEFANY GUSTAFSON MR#: [id number] : 1945 Acct:[id number] Age/Sex: 79 / F ADM Date: 10/28/24 Loc: ICU 273-[address]: Grover Overton M.D. Ordering Physician: Grover Overton M.D. Date of Service: 10/28/24 Procedure(s): CT angio chest Accession Number(s): [id number] cc: Paulina James M.D. [address] [place] [address] Patient Name: STEFANY GUSTAFSON MRN: [id number] date: 1945 Sex: F Assigned Patient Location: ICU Current Patient Location: ICU Accession/Order Number: [id number] Exam Date: 10/28/2024 15:15 Report Date: 10/28/2024 16:12 At the request of: GROVER OVERTON Procedure: CT angio chest CTA CHEST. CLINICAL [...] By: Jhonatan Hi M.D. Signed By: 10/28/24 1612 DD/ 11 TD/TT: Manager Mechanical Maintenance:CBC AUTO DIFF Reviewed date:10/31/2024 08:32:20 PM Interpretation: Performing Lab: Notes/Report: [facility] ,White Blood Count9.34.0-11.0 10 3/uLRed Blood Count3.194.20-5.40 10 6/uL Hemoglobin9.412.0-16.0 g/jXNfqvlffcey25.936.0-48.0 %Mean Corpuscular Vfajnb707.0 81.0-99.0 fLMean Corpuscular Mminneypek25.526.7-34.0 pgMean Corpuscular HGB Conc 29.529.9-35.2 g/dLRed Cell Distribution Width13.511.0-15.0 %Platelet Wjfbo217 150-450 10 3/uLMean Platelet Volume9.19.5-13.5 fLNeutrophils Percent Auto82.3 43.0-75.0 %Lymphocytes Percent Auto6.120.5-60.0 %Monocytes Percent Auto6.71.7- 12.0 %Eosinophils Percent Auto0.00.9-7.0 %Basophils Percent Auto0.20.2-2.0 % Immature Granulocytes Pct Auto4.70.0-0.5 %Neutrophils Absolute Auto7.61.4-6.5 10 3/uLLymphocytes Absolute Auto0.61.2-3.8 10 3/uLMonocytes Absolute Auto0.60.3-0.8 10 3/uLEosinophils Absolute Auto0.00.0-0.7 10 3/uLBasophils Absolute Auto0.00.0- 0.1 10 3/uLImmature Granulocytes Abs Auto0.440.00-0.03 10 3/uLPerforming Lab:see noteML - [facility] LBVenous Blood Gas Reviewed date:10/31/2024 08:32:20 PM Interpretation: Performing Lab: Notes/Report: [facility] ,pH VBG7.3857.330-7.012IPS1 VBG85.640.0-52.0 mmHgRESULTS CALLED TO BRENDA NUNEZ RN at 0539Performing Lab:see noteML - [facility] LB Troponin I High Sensitivity Reviewed date:10/31/2024 08:32:20 PM Interpretation: Performing Lab: Notes/Report: [facility] ,Troponin I High Uqqmegjinut47.84.0-51.3 pg/mL REFERENCE LIMIT (URL) OF TROPONIN, DEFINED THE 99TH 99TH PERCENTILE = 51.4 PG/ML DIAGNOSIS. NOTE: HIGH-SENSITIVITY TROPONIN ASSAY IS NOT INTENDED TO BE PERCENTILE OF cTnI DISTRIBUTION IN A REFERENCE POPULATION, CUT-OFF POINTS HAVE BEEN ESTABLISHED BASED ON THE FOURTH WITH OTHER DIAGNOSTIC AND CLINICAL INFORMATION. UNIVERSAL DEFINITION OF MYOCARDIAL INFARCTION. THE UPPER USED IN ISOLATION BUT SHOULD BE INTERPRETED IN CONJUNCTION HAS BEEN CONFIRMED THE DECISION THRESHOLD FOR GA Performing Lab:see noteML - [facility] LBPROF 14(COMP METB) Reviewed date:10/31/2024 08:32:20 PM Interpretation: Performing Lab: Notes/Report: [facility] ,Mbhwmx138278-273 mmol/LPotassium4.03.5-5.1 mmol/VOgbxcdxm3732-511 mmol/LCarbon Mydantc73.321.0-32.0 mmol/LAnion Gap3.6Zvlfctf95276-791 mg/dLBlood Urea Nitrogen 21.07.0-18.0 mg/dLCreatinine1.010.55-1.02 mg/dLEstimated GFR ( Audra>60 >=60 mL/min/1.73m 2Estimated GFR (Non- Ame53>=60 mL/min/1.73m 2BUN Creatinine Ratio20.6Sfphdpm7.48.5-10.1 mg/dLBilirubin Total0.20.2-1.0 mg/dL Aspartate Amino Qfrhqwvhegc9922-45 U/LAlanine Diophbzuetejywvk1827-21 U/L Alkaline Kkzntvfffzi2875-866 U/LTotal Protein7.66.4-8.2 g/dLAlbumin Level2.83.4- 5.0 g/dLGlobulin4.8Albumin Globulin Ratio0.6Performing Lab:see noteML - [facility] LBLIVER PROFILE Reviewed date:10/31/2024 08:32:20 PM Interpretation: Performing Lab: Notes/Report: [facility] ,Bilirubin Total0.20.2-1.0 mg/dLBilirubin Direct0.10.0-0.2 mg/dLAspartate Amino Nwyombetoug5631-48 U/LAlanine Roxfunpugsbnjpji3439-01 U/LAlkaline Auneebknqvj28 46-116 U/LTotal Protein7.66.4-8.2 g/dLAlbumin Level2.93.4-5.0 g/dLGlobulin4.7 Albumin Globulin Ratio0.6Performing Lab:see noteML - [facility] LBCBC AUTO DIFF Reviewed date:10/31/2024 08:32:20 PM Interpretation: Performing Lab: Notes/Report: [facility] ,White Blood Count9.64.0-11.0 10 3/uLRed Blood Count3.394.20-5.40 10 6/uL Hpdnhtesrx51.012.0-16.0 g/nNOqoyiyomnr03.836.0-48.0 %Mean Corpuscular Rkxwxl41.7 81.0-99.0 fLMean Corpuscular Rzfzyyssof92.526.7-34.0 pgMean Corpuscular HGB Conc 29.629.9-35.2 g/dLRed Cell Distribution Width13.911.0-15.0 %Platelet Xxhat327 150-450 10 3/uLMean Platelet Volume9.39.5-13.5 fLNeutrophils Percent Auto87.2 43.0-75.0 %Lymphocytes Percent Auto4.420.5-60.0 %Monocytes Percent Auto7.11.7- 12.0 %Eosinophils Percent Auto0.00.9-7.0 %Basophils Percent Auto0.10.2-2.0 % Immature Granulocytes Pct Auto1.20.0-0.5 %Neutrophils Absolute Auto8.41.4-6.5 10 3/uLLymphocytes Absolute Auto0.41.2-3.8 10 3/uLMonocytes Absolute Auto0.70.3-0.8 10 3/uLEosinophils Absolute Auto0.00.0-0.7 10 3/uLBasophils Absolute Auto0.00.0- 0.1 10 3/uLImmature Granulocytes Abs Auto0.120.00-0.03 10 3/uLPerforming Lab:see noteML - [facility] LBBNP Reviewed date:10/31/2024 08:32:20 PM Interpretation: Performing Lab: Notes/Report: [facility] ,NT Pro B Type Natriuretic Qcoi000.0<=1800.0 pg/mLPerforming Lab:see noteML - [facility] LBBLOOD GASES BTY Reviewed date:10/31/2024 08:32:20 PM Interpretation: Performing Lab: Notes/Report: [facility] ,pH ABG7.3647.350-7.450ABG JDC324.435.0-45.0 mmHgRESULTS CALLED TO YADIRA DAVIES) IN ICUPO2 ABG81.680.0-100.0 mmHgHCO3 ABG51.022.0-26.0 mmol/L Base Excess ABG25.6-2.0-2.0 mmol/LOxygen Saturation ABG97.1Allen TestPOSPOSITIVE O2 ModeBIPAPFractionated Inspired Yotpxg35Hrvzyzbz SiteLEFT RADIALBIPAP Pressure 16/4Pejh86Kcqipptpym Lab:see noteML - [facility] LBUA RANDOM W or MICROSCOPIC Reviewed date:10/31/2024 08:32:20 PM Interpretation: Performing Lab: Notes/Report: [facility] ,Color UrineLT. YELLOWYELLOWClarity UrineCLEARCLEARSpecific Fork Urine1.015 1.005-1.025pH Urine8.05.0-9.0Protein UrineNEGATIVENEG/TRACE mg/dLGlucose Urine UANEGATIVENEGATIVE mg/dLBilirubin UrineNEGATIVENEGATIVEKetones UrineNEGATIVE NEGATIVE mg/dLBlood UrineNEGATIVENEGATIVENitrite UrineNEGATIVENEGATIVE Urobilinogen Urine0.20.2-1.0 EU/dLLeukocyte Esterase UrineNEGATIVENEGATIVEWBC UrineNONE SEENNONE SEEN #/HPFRBC UrineNONE SEEN0-2 #/HPFBacteria UrineNONE SEEN NONE SEEN #/HPFMucus UrineNONE SEENNONE SEENSquamous Epithelial Cell UrineRARE NONE/RARE #/LPFCrystals Seen?None SeenNone Seen #/HPFCast Seen?NONE SEENNONE SEEN #/LPFUrine Culture IndicatedNOPerforming Lab:see noteML - [facility] LBLACTATE or LACTIC ACID Reviewed date:10/31/2024 08:32:20 PM Interpretation: Performing Lab: Notes/Report: [facility] ,Lactate/Lactic Acid0.80.4-2.0 mmol/LPerforming Lab:see noteML - [facility] LBBLOOD GASES BTY Reviewed date:10/31/2024 08:32:20 PM Interpretation: Performing Lab: Notes/Report: [facility] ,pH ABG7.3077.350-7.450ABG PCO2>98.335.0-45.0 mmHgRESULTS CALLED TO TITO CHERRY RN AT 6158WO0 YIO009.080.0-100.0 mmHgOxygen Saturation ABG98.9Allen TestPOSITIVEPOSITIVEO2 ModeNCLiters per Bvxftn9Snunylur SiteLRPerforming Lab:see noteML - [facility] LBTroponin I High Sensitivity Reviewed date:10/31/2024 08:32:20 PM Interpretation: Performing Lab: Notes/Report: [facility] ,Troponin I High Melgrjkbqfg61.94.0-51.3 pg/mL 99TH PERCENTILE = 51.4 PG/ML NOTE: HIGH-SENSITIVITY TROPONIN ASSAY IS NOT INTENDED TO BE UNIVERSAL DEFINITION OF MYOCARDIAL INFARCTION. THE UPPER PERCENTILE OF cTnI DISTRIBUTION IN A REFERENCE POPULATION, REFERENCE LIMIT (URL) OF TROPONIN, DEFINED THE 99TH CUT-OFF POINTS HAVE BEEN ESTABLISHED BASED ON THE FOURTH WITH OTHER DIAGNOSTIC AND CLINICAL INFORMATION. HAS BEEN CONFIRMED THE DECISION THRESHOLD FOR GA USED IN ISOLATION BUT SHOULD BE INTERPRETED IN CONJUNCTION DIAGNOSIS. Performing Lab:see noteML - [facility] LBPROF 14(COMP METB) Reviewed date:10/31/2024 08:32:20 PM Interpretation: Performing Lab: Notes/Report: [facility] ,Wyfajs611451-370 mmol/LPotassium3.73.5-5.1 mmol/ZWtojzfxp12471-132 mmol/LCarbon Jibizkt67.921.0-32.0 mmol/LAnion Gap2.9Xlloksf91862-756 mg/dLBlood Urea Nitrogen 27.07.0-18.0 mg/dLCreatinine0.940.55-1.02 mg/dLEstimated GFR ( Audra>60 >=60 mL/min/1.73m 2Estimated GFR (Non- Ame58>=60 mL/min/1.73m 2BUN Creatinine Ratio28.3Dfznhyw8.38.5-10.1 mg/dLBilirubin Total0.20.2-1.0 mg/dL Aspartate Amino Auktsjrgddz0829-36 U/LAlanine Xeygjqrriocjsxty2890-61 U/L Alkaline Oswhusoyzhx9525-520 U/LTotal Protein6.86.4-8.2 g/dLAlbumin Level2.83.4- 5.0 g/dLGlobulin4.0Albumin Globulin Ratio0.7Performing Lab:see noteML - [facility] LBCBC AUTO DIFF Reviewed date:10/31/2024 08:32:20 PM Interpretation: Performing Lab: Notes/Report: [facility] ,White Blood Count11.04.0-11.0 10 3/uLRed Blood Count3.044.20-5.40 10 6/uL Hemoglobin8.912.0-16.0 g/eQSgnystyuop85.436.0-48.0 %Mean Corpuscular Enwqyq952.0 81.0-99.0 fLMean Corpuscular Oqduwzpvci96.326.7-34.0 pgMean Corpuscular HGB Conc 29.329.9-35.2 g/dLRed Cell Distribution Width14.011.0-15.0 %Platelet Xcojv255 150-450 10 3/uLMean Platelet Volume9.19.5-13.5 fLNeutrophils Percent Auto81.2 43.0-75.0 %Lymphocytes Percent Auto7.520.5-60.0 %Monocytes Percent Auto10.11.7- 12.0 %Eosinophils Percent Auto0.00.9-7.0 %Basophils Percent Auto0.10.2-2.0 % Immature Granulocytes Pct Auto1.10.0-0.5 %Neutrophils Absolute Auto8.91.4-6.5 10 3/uLLymphocytes Absolute Auto0.81.2-3.8 10 3/uLMonocytes Absolute Auto1.10.3-0.8 10 3/uLEosinophils Absolute Auto0.00.0-0.7 10 3/uLBasophils Absolute Auto0.00.0- 0.1 10 3/uLImmature Granulocytes Abs Auto0.120.00-0.03 10 3/uLPerforming Lab:see noteML - [facility] LBBNP Reviewed date:10/31/2024 08:32:20 PM Interpretation: Performing Lab: Notes/Report: [facility] ,NT Pro B Type Natriuretic Xokv668.0<=1800.0 pg/mLPerforming Lab:see note - [facility] LBPROF 14(COMP METB) Reviewed date:10/31/2024 08:32:20 PM Interpretation: Performing Lab: Notes/Report: [facility] ,Mnubvf325051-363 mmol/LPotassium4.23.5-5.1 mmol/RJvyashuq43735-467 mmol/LCarbon Fotpkzs77.521.0-32.0 mmol/LAnion Gap0.6Ucbaepd90457-014 mg/dLBlood Urea Nitrogen 31.07.0-18.0 mg/dLCreatinine0.910.55-1.02 mg/dLEstimated GFR ( Audra>60 >=60 mL/min/1.73m 2Estimated GFR (Non- Ame60>=60 mL/min/1.73m 2BUN Creatinine Ratio34.2Uwdgsxq3.78.5-10.1 mg/dLBilirubin Total0.20.2-1.0 mg/dL Aspartate Amino Eifyolxyuaf6444-55 U/LAlanine Snrtnquyjjrouvte4859-98 U/L Alkaline Rbwjqdjmtwv5005-024 U/LTotal Protein6.86.4-8.2 g/dLAlbumin Level2.83.4- 5.0 g/dLGlobulin4.0Albumin Globulin Ratio0.7Performing Lab:see noteML - [facility] LBECG 12 lead (Not yet reviewed by provider) Interpretation: Performing Lab: Notes/Report: Source Facility: [facility] [place] [address] [place] [address] Electrocardiograph Report Signed Patient: STEFANY GUSTAFSON MR#: [id number] : 1945 Acct:[id number] Age/Sex: 80 / F ADM Date: 09/21/25 Loc: CARD Attending Dr: Marcio Mireles D.O. Ordering Physician: Marcio Mireles D.O. 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 Measurements Intervals [place] Rate: 86 P: 79 MI: 158 QRS: -28 QRSD: 92 T: 77 QT: 358 QTc: 429 Interpretive Statements SINUS RHYTHM WITH OCCASIONAL SUPRAVENTRICULAR PREMATURE COMPLEXES BORDERLINE LEFT AXIS DEVIATION [QRS AXIS < -20] Borderline ECG Compared to ECG 08/02/2025 15:31:49 No significant changes Electronically Signed On 09-21-2025 19:11:16 EST by ADRIAN GAUTAM M.D. Dictated By: ADRIAN GAUTAM Signed By: 09/21/25191009/21/251910 DD/ 43 TD/TT: Manager Mechanical Maintenance: Reason For Referral No Information Medications Medication SIG (Take, Route, Frequency, Duration) Notes Start Date End Date Status Lisinopril-hydroCHLOROthiazide 20-25 MG 1 tablet Orally Once a day ActiveStiolto Respimat 2.5-2.5 MCG/ACT 2 puffs Inhalation QD; Duration: 90 days Dispense #3 inhalers ActiveIbuprofen 200 MG1 tablet with food or milk as needed Orally Three times a dayActiveTylenol 325 MG1 tablet as needed Orally every 4 hrsActiveAlbuterol Sulfate HFA 108 (90 Base) MCG/ACT 2 puffs as needed for SOB Inhalation Q4H; Duration: 90 days Dispense #3 inhalers ActivepredniSONE 5 MG 1 tablet Orally BID; Duration: [...] smoker How long has it been since you last smoked?Greater than 10 yearsAdditional Findings: Tobacco gqv-kaomEu-nbynthpt cigarette smoker (10-19/day) Problems Problem Type SNOMED Code ICD Code Onset Dates Problem Status W/U Status Risk Notes Problem Obesity (845620883) Obesity, unspecified (E66.9) ActiveconfirmedProblemCentrilobular emphysema (20547605)Centrilobular emphysema (J43.2)ActiveconfirmedProblemSolitary pulmonary nodule (743942187)Solitary pulmonary nodule (R91.1)ActiveconfirmedProblemLong-term current use of systemic steroid (604094649062346)jail (current) use of systemic steroids (Z79.52) ActiveconfirmedProblemRheumatoid arthritis (15059597)Rheumatoid arthritis (M06.9)ActiveconfirmedProblemEssential hypertension (73049668)Benign essential HTN (I10)ActiveconfirmedProblemCongestive heart failure (65629095)Congestive heart failure (I50.9)ActiveconfirmedProblemBenign essential hypertension (7469243)Benign essential hypertension (I10)ActiveconfirmedProblemAcute exacerbation of chronic obstructive airways disease (416049082)COPD exacerbation (J44.1)ActiveconfirmedProblemChronic hypoxemic respiratory failure (312544291) Chronic hypoxemic respiratory failure (J96.11)ActiveconfirmedProblemEx-tobacco user (finding) (411826516)History of tobacco abuse (Z87.891)Activeconfirmed ProblemObese class II (458466077368709)Body mass index [BMI] 35.0-35.9, adult (Z68.35)ActiveconfirmedProblemBody mass index 35.00 to 39.99 (301555618469530) Body mass index [BMI] 36.0-36.9, adult (Z68.36)Activeconfirmed Vital Signs Heart Rate 95 /min 05/10/2025 [...] Encounter Location Date Provider Diagnosis Pulmonary Medicine [address] [address] 11/09/2024 Marciopatricia Mireles Centrilobular emphys burt J43.2 ; Pneumonia due to Coronavirus disease 2019 J12.82 ; Solitary pulmonary nodule R91.1 ; Chronic hypoxemic respiratory failure J96.11 ; History of tobacco abuse Z87.891 and Obesity, unspecified E66.[address] [address] 02/08/2025 Marciopatricia Mireles Centrilobular emphys burt J43.2 ; Solitary pulmonary nodule R91.1 ; Chronic hypoxemic respiratory failure J96.11 ; History of tobacco abuse Z87.891 ; Obesity, unspecified E66.9 and jail (current) use of systemic steroids Z79.[address] [address] 05/10/2025 Marciopatricia Mierles Centrilobular emphys burt J43.2 ; Solitary pulmonary nodule R91.1 ; Chronic hypoxemic respiratory failure J96.11 ; History of tobacco abuse Z87.891 ; Obesity, unspecified E66.9 and jail (current) use of systemic steroids Z79.[address] [address] 12/07/2024 Marciopatricia Mireles Centrilobular emphys burt J43.2 Assessments Encounter Date Diagnosis (ICD Code) Assessment Notes Treatment Notes Treatment Clinical Notes Section Notes 11/09/2024 Centrilobular emphysema (ICD-10 - J43.2) Prior [...] would like to avoid this if able. 11/09/2024Pneumonia due to Coronavirus disease 2019 (ICD-10 - J12.82) Admitted to [facility] on 10/28/2024 COVID. I personally reviewed [...] if she feels that she needs it. 5Centrilobular emphysema (ICD-10 - J43.2) Prior treatment: Stiolto [...] 3 months as she remains on prednisone. 02/08/2025Solitary pulmonary nodule (ICD-10 - R91.1) LLL 6mm solitary pulmonary nodule, appears pleural-based. Present on soft windows. In the [facility] solitary pulmonary nodule risk calculator, the risk of this nodule for malignancy is 9.4%. She does not wish for any further w/up at this time. 05/10/2025entrilobular emphysema (ICD-10 - J43.2) Prior treatment: Stiolto [...] lot of options remaining at this point. 12/07/2024entrilobular emphysema (ICD-10 - J43.2)05/10/2025Solitary pulmonary nodule (ICD-10 - R91.1) LLL 6mm solitary pulmonary nodule, appears pleural-based. Present on soft windows. In the [facility] solitary pulmonary nodule risk calculator, the risk of this nodule for malignancy is 9.4%. As before, patient refused any further monitoring or w/up. 5Chronic hypoxemic respiratory failure (ICD-10 - J96.11) Wgxy-hb-pkza encounter performed with the patient to document [...] that led to the point of requiring O2.- Recommendations: Continue O2 @ 3L/min ATC. 11/09/2024Solitary pulmonary nodule (ICD-10 - R91.1) LLL 6mm solitary pulmonary nodule, appears pleural-based. Present on soft windows. In the [facility] solitary pulmonary nodule risk calculator, the risk [...] went to have any further follow-up imaging. 02/08/2025History of tobacco abuse (ICD-10 - Z87.891) Patient does not want further chest CT imaging. 05/10/2025hronic hypoxemic respiratory failure (ICD-10 - J96.11) Okjn-dh-harj encounter performed with the patient to document [...] that led to the point of requiring O2.- Recommendations: SpO2 low on her Inogen. POC may be insufficient for her at this time. May need to consider changing to continuous flow O2. Continue O2 @ 3L/min ATC. 05/10/2025History of tobacco abuse (ICD-10 - Z87.891) Patient declined any LDCT screening. She is going ot age out of it by her birthday in 2 months. 02/08/2025Obesity, unspecified (ICD-10 - E66.9) Patient's weight is inducing a restrictive pulmonary physiology. Weight loss indicated: Decrease calories, increase activity. 11/09/2024hronic hypoxemic respiratory failure (ICD-10 - J96.11) Ollc-fd-tapf encounter performed with the patient to document continued need for supplemental oxygen (O2).-Flow & directions: 3L/min O2 ATC -Patient voices adherence to recommended usage: Yes-Symptom control on O2: Less dyspnea-Counseled patient not begin, restart, or continue smoking, around the O2 due to risk of fire which could resultin damage to the O2 tanks & lines, smoke inhalation and flame damage to the airway, significantburns, potential , property damage, and potential harm & to bystanders. Additionally, counseled it is not zuleta to begin, restart, or continue smoking given the underlying pulmonary disease that led to the point of requiring O2.- Recommendations: Patient is to continue O2 at 3L/min ATC. 11/09/2024History of tobacco abuse (ICD-10 - Z87.891) The patient has refused prior LDCT screening recommendations. Now that a chest CT has been done andshowed a 6 mm nodule, she would no longer follow-up with an LDCT screening, and at this time that she is 79 years old, but no longer meet the age for covered LDCT benefits through Medicare. 05/10/2025Obesity, unspecified (ICD-10 - E66.9) Patient's weight is inducing a restrictive pulmonary physiology. Weight loss indicated: Decrease calories, increase activity. 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 Counseled that she cannot stop prednisone cold turkey without alerting the office. 05/10/2025Long term (current) use of systemic steroids (ICD-10 - Z79.52) Discussed adverse effects of custodial systemic steroids including, but not limited to: increased risk of cataracts, elevated blood sugars/worsening of underlying diabetes mellitus, impaired wound healing, gastrointestinal ulcers, osteoporosis. Counseled that she cannot stop prednisone cold turkey without alerting the office. 11/09/2024Obesity, unspecified (ICD-10 - E66.9) Patient's weight is inducing a restrictive pulmonary physiology. Weight loss indicated: Decrease calories, increase activity. Plan Of Treatment Pending Test Test Name Order Date ECG 12 lead 09/21/2025 Insurance Providers Payer Name Payer Address Payer Phone Subscriber Number Group Number Insured Name Patient Relationship to Insured Coverage Start Date Coverage End Date [place] [address] [place] [address] [id number] Gustavo Gustfason - patient is the [id number] [facility] [place] [address] [address] [place] [id number], LindaSelf - patient is the [id number] 2015 Medical (General) History Medical History History ICD Code Chronic obstructive pulmonary disease J4 4.9 Chronic hypoxemic respiratory failure J9 6.11 Benign essential hypertension I10 Rheumatoid arthritis M06.9 History of tobacco abuse Z87.891 Surgical History Surgery Date(Month/Year) tonsillectomy cataract removalHospitalization History Reason Date(Month/Year) Covid-19/COPD Exacerbation-[facility] 5
--- OUTSIDE RECORDS SUMMARY | 2025-10-25 11:02 | XMS_ITS | CCD ---
Author Organization [facility] Care Team Providers Care Pulpwood Cutter Name Role Phone WEST, DR HESHAM Terrell Consulting Unavailable MENDY, DR PAULINA Kellogg Attending Unavailable MENDY, DR PAULINA Kellogg Primary Care Unavailable MENDY, DR PAULINA Kellogg Admitting Unavailable MENDY, DR PAULINA Kellogg Consulting Unavailable Paulina James Keegan Coles DO Attending Provider Unavailab Keegan Duncan Attending Unavailable Keegan Coles Admitting Unavailable Paulina James MD Primary Care Provider Paulina James MD Attending Provider [phone] Paulina James MD Primary Care Provider Paulina James MD Attending Provider Gladys Duran CMA Attending Provider Unavaila ble Allergies Allergy ClassificationReported Allergen(s)Allergy TypeDate of OnsetReaction(s) Facility (1 source)[facility] RemitDATA Other (1 source)CodeineDrug Azvorer47-59-1972JbdbicjoyTogus Va [facility] Center Repository Medications Current Medications MedicationDrug Class(es)DatesSig (Normalized)Sig (Original)[id number] 200 actuat albuterol 0.09 mg/actuat metered dose inhaler (16 sources)beta2-Adrenergic AgonistStart: 95-44-5198lrpa 2 puff(s) by mouth every six hours as neededAlbuterol Sulfate 90 mcg/actuation HFA aerosol inhaler Active 0 .ROUTE .COMPLEX 8.5 May 240:00am INHALE 2 PUFFS BY MOUTH EVERY 6 HOURS NEEDED FOR BRONCHOSPASM Complies with drug therapyStart: 03-09-2024 End: 08-12-6506hbcs 1 puff(s) by inhalation every six hours as neededAlbuterol Sulfate 90 mcg/actuation HFA aerosol inhaler Discontinued 2 PUFF INHALATION Every 6 hoursas needed for bronchospasm 8.5 March 09, 2024 11:00am May 24, 2024 10:00amStart: 02-11-2024 End: 22-81-0513srnu 2 puff(s) by inhalation every four hours [...] 250 mg oral tablet (1 source)Macrolide AntimicrobialStart: 26-11-9446Auxlahwmwinu 250 MG as directed Orally 2 tabs po today, then 1 tab daily x 4 more days for 5 Oct, ActivehydroCHLOROthiazide 25 mg / lisinopril 20 mg oral tablet (9 sources)Thiazide Diuretic, Angiotensin Converting Enzyme InhibitorStart: 66-00-3661ozar 1 tablet by mouth once dailyLisinopril-Hydrochlorothiazide 20-25 mg tablet Active 0 .ROUTE .COMPLEX November 16, 2024 1:55pm TAKE 1 TABLET BY MOUTH EVERY DAY Complies with drug therapyStart: 03-08-2024 End: 47-58-8438cizu 1 tablet by mouth once dailyLisinopril-Hydrochlorothiazide 20-25 [...] for 90 ActiveTiotropium-Olodaterol (5 sources)Anticholinergic, beta2-Adrenergic AgonistStart: 09-87-5350Sixrbwihsl- Olodaterol (Stiolto Respimat) 2.5-2.5 mcg/actuation mist Active 2 PUFF INHALATION Daily March 08, 2024 12:00am Complies with drug therapyStart: 37-25-5719Xwatoregtf-Olodaterol (Stiolto Respimat) 2.5-2.5 mcg/actuation mist Active 2 PUFF INHALATION Daily March 07, 2024 11:00pmpredniSONE 5 mg oral tablet (4 sources)Start: 46-32-8953vhgr 1 tablet by mouth once dailyPrednisone 5 mg tablet Active 5 MG PO Daily April 26, 2025 12:00am Complies with drug therapy Start: 58-63-0967wfnt 2 tablets by mouth every twenty-four hourspredniSONE 20 MG 2 tablets Orally Once a day for 5 days Oct, ActiveStiolto Respimat (1 source)Stiolto Respimat Active Problems Problem ClassificationProblemDateDocumented DateEpisodic/ChronicChronic obstructive pulmonary disease and bronchiectasis (8 sources)Acute exacerbation of chronic obstructive airways disease; Translations: [Chronic obstructive pulmonary disease with (acute) exacerbation] Onset: 47-20-7867XzzwwqiYhyvfyf obstructive pulmonary disease and bronchiectasis (1 source)Chronic obstructive pulmonary disease and bronchiectasisEssential hypertension (6 sources)Essential hypertension; Translations: [Essential (primary) hypertension]84-66-4771LirxlgfEwryh lower respiratory disease (3 sources)Pulmonary edema; Translations: [Chronic pulmonary edema]11-08-2024 ChronicOther non-traumatic joint disorders (4 sources)Pain in left knee; Translations: [PAIN IN LEFT KNEE]Onset: 07-23-2022 EpisodicRespiratory failure; insufficiency; arrest (adult) (6 sources)Vbybg-qd-agqqovs respiratory failure; Translations: [Acute and chronic respiratory failure, unspecified whether with hypoxia or hypercapnia] 82-72-0942UgkyxbzMobih infection (3 sources)Disease caused by 2019-nCoV; Translations: [COVID-19]11-08-2024 Episodic Results Test NameValueInterpretationReference RangeFacilityBasophils/100 WBC Manual cnt (Bld)Ordered By: Arturo Villafuerte on 73-58-4541Rqzmxoxvn/100 WBC (Bld)0.0 %Low0.2-2.0 [facility] CenterEosinophils/100 WBC Manual cnt (Bld)Ordered By: Arturo Villafuerte on 04-32-2681Vezpffuizxq/100 WBC (Bld)1.0 %0.9-7.0[facility] CenterErythrocyte distribution width Auto (RBC) [Ratio]Ordered By: Paulina James on 30-56-8553Szsntbrkdgn distribution width (RBC) [Ratio]17.5 % High11.0-15.0[facility] CenterGlomerular filtration rate (GFR) estimation in non- AmericanOrdered By: Arturo Villafuerte on 47-21-8152ZFB/1.73 sq M.predicted among non-blacks MDRD (S/P/Bld) [Vol rate/Area]mL/min/{1.73_m2} >=60 mL/min/1.73m 2FCleveland Clinic Medina HospitalHematocrit Auto (Bld) [Volume fraction]Ordered By: Paulina James on 20-25-0024Ampunueoqd (Bld) [Volume fraction]31.0 %Low36.0-48.0[facility] CenterHemoglobin [Mass/volume] in BloodOrdered By: Paulina James on 42-17-1310Qmbwifegfk (Bld) [Mass/Vol]8.8 g/dLLow12.0-16.0[facility] CenterHypochromia LM Ql (Bld)Ordered By: Arturo Villafuerte on 39-98-6365Iljqeqpvgmo Ql (Bld)3+[facility] CenterLaboratory - Chemistry and Chemistry - challengeOrdered By: Arturo Villafuerte on 33-38-8575Plzjhnx [Mass/Vol]9.1 mg/dL8.5-10.1FCleveland Clinic Medina HospitalChloride [Moles/Vol]96 mmol/JRpv71-263LtowgkqkzTogus Va Medical CenterCO2 [Moles/Vol]43.1 mmol/LHigh21.0-32.0[facility] CenterCreatinine [Mass/Vol]0.72 mg/dL0.55-1.02[facility] GFR/1.73 sq M.predicted MDRD (S/P/Bld) [Vol rate/Area]mL/min/{1.73_m2}>=60 mL/min/1.73m 2FCleveland Clinic Medina HospitalGlucose [Mass/Vol]113 mg/dLHigh 74-106[facility] CenterMagnesium [Mass/Vol]1.9 mg/dL1.8-2.4 [facility] CenterNatriuretic peptide B (Bld) [Mass/Vol]169.0 pg/mL<=1800.0[facility] CenterPotassium [Moles/Vol]4.2 mmol/L 3.5-5.1FSouthview Medical Centerodium [Moles/Vol]145 mmol/T005-415 [facility] CenterUrea nitrogen [Mass/Vol]16.0 mg/dL7.0-18.0 [facility] CenterUrea nitrogen/Creatinine [Mass ratio]22.2 mg/mg [facility] CenterLaboratory - Hematology and Cell countsOrdered By: Arturo Villafuerte on 57-54-7491Qylt form neutrophils/100 WBC (Bld)2.0 %0-5 [facility] CenterLymphocytes/100 WBC (Bld)6.0 %Low20.5-60.0 [facility] CenterMonocytes/100 WBC (Bld)8.0 %1.7-12.0[facility] CenterLeukocytes [#/volume] corrected for nucleated erythrocytes in Blood by Automated counOrdered By: Pauilna James on 17-06-8912DGZ corrected for nucl RBC Auto (Bld) [#/Vol]6.9 10 3/uL4.0-11.0[facility] Auto (RBC) [Entitic mass]Ordered By: Paulina James on 12-73-1441FOK (RBC) [Entitic mass]26.7 pg26.7-34.0[facility] HospitalHC Auto (RBC) [Mass/Vol]Ordered By: Paulina James on 12-02-2307AVQA (RBC) [Mass/Vol]28.4 g/dLLow29.9-35.2FCleveland Clinic Medina HospitalMCV Auto (RBC) [Entitic vol]Ordered By: Paulina James on 78-86-5473SOG (RBC) [Entitic vol]93.9 fL81.0-99.0[facility] CenterNo Panel InformationOrdered By: Arturo Villafuerte on 27-91-3432Fqizfafk Basophils (Manual)0.00 10 3/uL0.00-0.10[facility] CenterBand Neutrophils # (Manual)0.1 10 3/uL0.0-0.3FCleveland Clinic Medina HospitalEosinophils # (Manual)0.06 10 3/uL0.00-0.70[facility] CenterLymphocytes # (Manual)0.41 10 3/uLLow1.20-3.80[facility] CenterMonocytes # (Manual)0.55 10 3/uL0.30-0.80[facility] CenterPlatelet CommentNORMALTogus Va Medical Center Segmented Neutrophils # (Manual)5.72 10 3/uL1.4-6.5FC[facility] Clinic Medina HospitalTroponin I High Xvksbzpiasr92.1 pg/mL4.0-51.3FC[facility] Clinic Medina HospitalComment on above:CUT-OFF POINTS HAVE BEEN ESTABLISHED [...] (Bld) [Entitic vol]Ordered By: Paulina James on 55-35-6603Jeqzacys mean volume (Bld) [Entitic vol]9.5 fL9.5-13.5FCleveland Clinic Medina HospitalPlatelets Auto (Bld) [#/Vol]Ordered By: Paulina James on 34-15-7132Tzqcdwacq (Bld) [#/Vol]191 10 3/uL 150-450[facility] Medical CenterPoikilocytosis [Presence] in Blood by Light microscopyOrdered By: Arturo Villafuerte on 59-64-2355Yiobbrlezfpgwx LM Ql (Bld) 1+[facility] CenterRBC Auto (Bld) [#/Vol]Ordered By: Paulina James on 15-94-0814VON (Bld) [#/Vol]3.30 10 6/uLLow4.20-5.40[facility] CenterRBC morphologyOrdered By: Arturo Villafuerte on 28-26-8618MBK morphology finding Nom (Bld)ABNORMALTogus Va Medical CenterRed blood cell stomatocyte detectionOrdered By: Arturo Villafuerte on 01-24-5832Dopuzpszgcgc LM Ql (Bld)1+[facility] Hospitalegmented neutrophils/100 WBC Manual cnt (Bld)Ordered By: Arturo Villafuerte on 94-73-9001Lsawqikpk neutrophils/100 WBC (Bld) 83.0 %High43.0-75.0[facility] Hospitalerum or plasma anion gap determinationOrdered By: Arturo Villafuerte on 85-84-5983Bdoej gap [Moles/Vol]10.1 mmol/LFSouthview Medical Centermudge cell detectionOrdered By: Arturo Villafuerte on 74-71-3907Tpqayf cells LM Ql (Bld)3FC[facility] Hospital Basophils Auto (Bld) [#/Vol]on 19-56-7028Skwxroexf (Bld) [#/Vol]Automated basophil count0.0-0.1FCleveland Clinic Medina HospitalBasophils/100 WBC Auto (Bld)on 91-87-8492Ejnvlictx/100 WBC (Bld)Automated basophil %0.2-2.0[facility] CenterEosinophils/100 WBC Auto (Bld)on 10-31-2024 Eosinophils/100 WBC (Bld)Automated eosinophil %Low0.9-7.0[facility] CenterErythrocyte distribution width Auto (RBC) [Ratio]on 10-31-2024 Erythrocyte distribution width (RBC) [Ratio]Erythrocyte distribution width [Ratio] by Automated count11.0-15.0[facility] CenterEstimated glomerular filtration rate (GFR) non- Americanon 92-71-2615QRJ/1.73 sq M.predicted among non-blacks MDRD (S/P/Bld) [Vol rate/Area]Estimated glomerular filtration rate (GFR) non->=60 mL/min/1.73m 2FC[facility] Clinic Medina HospitalGlobulin Calc (S) [Mass/Vol]on 42-67-1708Hhojpswm (S) [Mass/Vol] Serum globulin measurement by calculation (mass/volume)[facility] CenterHematocrit Auto (Bld) [Volume fraction]on 50-69-8532Iefqvxmnup (Bld) [Volume fraction]Hematocrit [Volume Fraction] of Blood by Automated count Low36.0-48.0[facility] CenterHemoglobin [Mass/volume] in Bloodon 87-33-3531Nlzbbmpoej (Bld) [Mass/Vol]Hemoglobin [Mass/volume] in BloodLow 12.0-16.0[facility] CenterLaboratory - Chemistry and Chemistry - challengeon 72-01-1914Imakphe [Mass/Vol]2.8 g/dLLow3.4-5.0[facility] CenterALP [Catalytic activity/Vol]55 U/O00-280RaigmjjhmTogus Va Medical CenterALT [Catalytic activity/Vol]15 U/W73-17RkzadcgakTogus Va Medical Center AST [Catalytic activity/Vol]17 U/R22-46ZwxeqgoybTogus Va Medical Center Bilirubin [Mass/Vol]0.2 mg/dL0.2-1.0[facility] CenterCalcium [Mass/Vol]9.7 mg/dL8.5-10.1FC[facility] Med[facility] HospitalChloride [Moles/Vol] 100 mmol/C93-280BnnndhnwgTogus Va Medical CenterCO2 [Moles/Vol]50.5 mmol/LHigh 21.0-32.0[facility] CenterCreatinine [Mass/Vol]0.91 mg/dL 0.55-1.02[facility] CenterGFR/1.73 sq M.predicted MDRD (S/P/Bld) [Vol rate/Area]mL/min/{1.73_m2}>=60 mL/min/1.73m 2FC[facility] HospitalGlucose [Mass/Vol]122 mg/kJXozt39-526RbjrsmotfTogus Va Medical Center Potassium [Moles/Vol]4.2 mmol/L3.5-5.1FC[facility] HospitalProtein [Mass/Vol]6.8 g/dL6.4-8.2FSouthview Medical Centerodium [Moles/Vol]147 mmol/STijl366-249VwwmfjsvcTogus Va Medical CenterUrea nitrogen [Mass/Vol]31.0 mg/dLHigh7.0-18.0[facility] CenterUrea nitrogen/Creatinine [Mass ratio]34.1 mg/mgTogus Va Medical CenterLaboratory - Hematology and Cell countson 38-20-0490Rbdiiyxs granulocytes/100 WBC (Bld)4.7 %High0.0-0.5 [facility] CenterLeukocytes [#/volume] corrected for nucleated erythrocytes in Blood by Automated counon 44-64-7446VZG corrected for nucl RBC Auto (Bld) [#/Vol]Leukocytes [#/volume] corrected for nucleated erythrocytes in Blood by Automated coun4.0-11.0[facility] CenterLymphocytes Auto (Bld) [#/Vol]on 61-22-3720Sdygoqxtdtl (Bld) [#/Vol]Lymphocytes [#/volume] in Blood by Automated countLow1.2-3.8[facility] Lymphocytes/100 WBC Auto (Bld)on 63-73-3792Jdscjocljew/100 WBC (Bld) Lymphocytes/100 leukocytes in Blood by Automated ukcdpZlf35.5-60.0[facility] HospitalH Auto (RBC) [Entitic mass]on 43-27-0279HCL (RBC) [Entitic mass]MCH [Entitic mass] by Automated count26.7-34.0[facility] CenterMCHC Auto (RBC) [Mass/Vol]on 11-82-7888WOWV (RBC) [Mass/Vol]MCHC [Mass/volume] by Automated opapxYsf05.9-35.2FC[facility] HospitalMCV Auto (RBC) [Entitic vol]on 36-83-8907NRI (RBC) [Entitic vol]MCV [Entitic volume] by Automated asjgdTiwc70.0-99.0[facility] Monocytes Auto (Bld) [#/Vol]on 89-93-5373Rhvkpdzcc (Bld) [#/Vol]Automated blood monocyte count0.3-0.8[facility] CenterMonocytes/100 WBC Auto (Bld)on 39-22-5448Yesikofjn/100 WBC (Bld)Automated monocyte %1.7-12.0[facility] CenterNeutrophils Auto (Bld) [#/Vol]on 84-42-7695Lxfbfkzbuks (Bld) [#/Vol]Neutrophils [#/volume] in Blood by Automated countHigh1.4-6.5 [facility] CenterNeutrophils/100 WBC Auto (Bld)on 10-31-2024 Neutrophils/100 WBC (Bld)Automated neutrophil %High43.0-75.0[facility] CenterNo Panel Informationon 48-26-8350Ecfewqrxrvv # (Auto)0.0 10 3/uL 0.0-0.7FC[facility] Med[facility] HospitalImmature Granulocyte # (Auto)0.44 10 3/uLHigh0.00-0.03[facility] CenterPlatelet mean volume Auto (Bld) [Entitic vol]on 71-86-7522Ylrtxxuv mean volume (Bld) [Entitic vol]Platelet mean volume [Entitic volume] in Blood by Automated countLow9.5-13.5FC[facility] HospitalPlatelets Auto (Bld) [#/Vol]on 86-90-5019Fhxizulke (Bld) [#/Vol]Platelets [#/volume] in Blood by Automated -101TrjpubskmTogus Va Medical CenterRBC Auto (Bld) [#/Vol]on 50-14-9286DCX (Bld) [#/Vol]Erythrocytes [#/volume] in Blood by Automated countLow4.20-5.40[facility] Hospitalerum or plasma albumin/globulin mass ratioon 62-57-7521Rnwbzcp/Globulin [Mass ratio]Serum or plasma albumin/globulin mass ratioMercer County Community Hospitalerum or plasma anion gap determinationon 41-06-5966Aoiwq gap [Moles/Vol]Serum or plasma anion gap determinationTogus Va Medical CenterBasophils Auto (Bld) [#/Vol]on 48-82-0934Ssszimwxm (Bld) [#/Vol]Automated basophil count0.0-0.1FC[facility] HospitalBasophils/100 WBC Auto (Bld)on 75-74-1249Srvyvsviu/100 WBC (Bld)Automated basophil %Low0.2-2.0[facility] CenterEosinophils/100 WBC Auto (Bld)on 10-30-2024 Eosinophils/100 WBC (Bld)Automated eosinophil %Low0.9-7.0[facility] CenterErythrocyte distribution width Auto (RBC) [Ratio]on 10-30-2024 Erythrocyte distribution width (RBC) [Ratio]Erythrocyte distribution width [Ratio] by Automated count11.0-15.0[facility] CenterEstimated glomerular filtration rate (GFR) non- Americanon 47-01-2688XDC/1.73 sq M.predicted among non-blacks MDRD (S/P/Bld) [Vol rate/Area]Estimated glomerular filtration rate (GFR) non- AmericanLow>=60 mL/min/1.73m 2FC[facility] HospitalGlobulin Calc (S) [Mass/Vol]on 47-99-0480Itumakty (S) [Mass/Vol]Serum globulin measurement by calculation (mass/volume)[facility] CenterHematocrit Auto (Bld) [Volume fraction]on 10-30-2024 Hematocrit (Bld) [Volume fraction]Hematocrit [Volume Fraction] of Blood by Automated twpfiVhe22.0-48.0[facility] CenterHemoglobin [Mass/volume] in Bloodon 76-95-1222Msuqxdzrjo (Bld) [Mass/Vol]Hemoglobin [Mass/volume] in ShuuyEnf82.0-16.0[facility] CenterLaboratory - Chemistry and Chemistry - challengeon 85-07-3911Fuaxgdz [Mass/Vol]2.8 g/dLLow 3.4-5.0[facility] CenterALP [Catalytic activity/Vol]57 U/L46-116 [facility] CenterALT [Catalytic activity/Vol]17 U/L14-59 [facility] CenterAST [Catalytic activity/Vol]19 U/L15-37 [facility] CenterBilirubin [Mass/Vol]0.2 mg/dL0.2-1.0[facility] CenterCalcium [Mass/Vol]9.3 mg/dL8.5-10.1FC[facility] HospitalChloride [Moles/Vol]100 mmol/L84-231OutcfutnkTogus Va Medical CenterCO2 [Moles/Vol]49.9 mmol/LHigh21.0-32.0[facility] Creatinine [Mass/Vol]0.94 mg/dL0.55-1.02[facility] GFR/1.73 sq M.predicted MDRD (S/P/Bld) [Vol rate/Area]mL/min/{1.73_m2}>=60 mL/min/1.73m 2FC[facility] HospitalGlucose [Mass/Vol]112 mg/dLHigh 74-106[facility] CenterNatriuretic peptide B (Bld) [Mass/Vol] 306.0 pg/mL<=1800.0[facility] CenterPotassium [Moles/Vol]3.7 mmol/L3.5-5.1FC[facility] HospitalProtein [Mass/Vol]6.8 g/dL6.4-8.2 [facility] Hospitalodium [Moles/Vol]149 mmol/TWhws234-811 [facility] CenterUrea nitrogen [Mass/Vol]27.0 mg/dLHigh7.0-18.0 [facility] CenterUrea nitrogen/Creatinine [Mass ratio]28.7 mg/mg [facility] CenterLaboratory - Hematology and Cell countson 72-55-0601Zcsohjko granulocytes/100 WBC (Bld)1.1 %High0.0-0.5FC[facility] HospitalLeukocytes [#/volume] corrected for nucleated erythrocytes in Blood by Automated counon 84-54-0195AYB corrected for nucl RBC Auto (Bld) [#/Vol]Leukocytes [#/volume] corrected for nucleated erythrocytes in Blood by Automated coun4.0-11.0[facility] CenterLymphocytes Auto (Bld) [#/Vol]on 70-67-2905Phokyedzbxc (Bld) [#/Vol]Lymphocytes [#/volume] in Blood by Automated countLow1.2-3.8[facility] CenterLymphocytes/100 WBC Auto (Bld)on 22-99-3433Iahffdkcvbt/100 WBC (Bld)Lymphocytes/100 leukocytes in Blood by Automated tyhxqIen83.5-60.0[facility] HospitalH Auto (RBC) [Entitic mass]on 06-41-6569RFG (RBC) [Entitic mass]MCH [Entitic mass] by Automated count26.7-34.0[facility] HospitalHC Auto (RBC) [Mass/Vol]on 38-42-6720CKNW (RBC) [Mass/Vol]MCHC [Mass/volume] by Automated qwglnQss29.9-35.2FC[facility] HospitalMCV Auto (RBC) [Entitic vol]on 69-71-1174TLV (RBC) [Entitic vol]MCV [Entitic volume] by Automated countHigh 81.0-99.0[facility] CenterMonocytes Auto (Bld) [#/Vol]on 12-22-0282Rgrppblxf (Bld) [#/Vol]Automated blood monocyte countHigh0.3-0.8 [facility] CenterMonocytes/100 WBC Auto (Bld)on 10-30-2024 Monocytes/100 WBC (Bld)Automated monocyte %1.7-12.0[facility] CenterNeutrophils Auto (Bld) [#/Vol]on 97-54-0718Esysqgxbiov (Bld) [#/Vol] Neutrophils [#/volume] in Blood by Automated countHigh1.4-6.5FC[facility] HospitalNeutrophils/100 WBC Auto (Bld)on 39-27-6353Dwbwksymvmz/100 WBC (Bld)Automated neutrophil %High43.0-75.0[facility] CenterNo Panel Informationon 64-61-5993Dblbkdtw I High Katsdiuzauk26.9 pg/mL4.0-51.3 [facility] CenterComment on above:CUT-OFF POINTS HAVE BEEN ESTABLISHED BASED [...] DIAGNOSTIC AND CLINICAL INFORMATION.Eosinophils # (Auto)0.0 10 3/uL0.0-0.7FC[facility] Med[facility] HospitalImmature Granulocyte # (Auto)0.12 10 3/uLHigh0.00-0.03[facility] CenterPlatelet mean volume Auto (Bld) [Entitic vol]on 15-34-6565Zihauzql mean volume (Bld) [Entitic vol]Platelet mean volume [Entitic volume] in Blood by Automated countLow9.5-13.5 [facility] CenterPlatelets Auto (Bld) [#/Vol]on 10-30-2024 Platelets (Bld) [#/Vol]Platelets [#/volume] in Blood by Automated hmoek762-200 [facility] CenterRBC Auto (Bld) [#/Vol]on 24-45-0481YNS (Bld) [#/Vol]Erythrocytes [#/volume] in Blood by Automated countLow4.20-5.40[facility] Hospitalerum or plasma albumin/globulin mass ratioon 10-30-2024 Albumin/Globulin [Mass ratio]Serum or plasma albumin/globulin mass ratio [facility] Hospitalerum or plasma anion gap determinationon 27-82-0221Pcwlg gap [Moles/Vol]Serum or plasma anion gap determinationTogus Va Medical CenterBasophils Auto (Bld) [#/Vol]on 86-47-4316Frnatbvxz (Bld) [#/Vol]Automated basophil count0.0-0.1[facility] Basophils/100 WBC Auto (Bld)on 69-18-8352Nxzxrtunt/100 WBC (Bld)Automated basophil %Low0.2-2.0[facility] CenterEosinophils/100 WBC Auto (Bld)on 51-94-5410Gabfayhcrbr/100 WBC (Bld)Automated eosinophil %Low0.9-7.0 [facility] CenterErythrocyte distribution width Auto (RBC) [Ratio]on 10-29-7052Ovystsjuosl distribution width (RBC) [Ratio]Erythrocyte distribution width [Ratio] by Automated count11.0-15.0[facility] CenterEstimated glomerular filtration rate (GFR) non- Americanon 22-68-6405WXK/1.73 sq M.predicted among non-blacks MDRD (S/P/Bld) [Vol rate/Area]Estimated glomerular filtration rate (GFR) non- AmericanLow>=60 mL/min/1.73m 2FC[facility] Med[facility] HospitalGlobulin Calc (S) [Mass/Vol]on 58-83-5262Dylrhovk (S) [Mass/Vol]Serum globulin measurement by calculation (mass/volume)[facility] CenterHematocrit Auto (Bld) [Volume fraction]on 57-93-1206Rbfnvtnvem (Bld) [Volume fraction]Hematocrit [Volume Fraction] of Blood by Automated tzzonVtf78.0-48.0[facility] CenterHemoglobin [Mass/volume] in Bloodon 47-42-9188Glgayekanh (Bld) [Mass/Vol] Hemoglobin [Mass/volume] in HpwbfGgs55.0-16.0[facility] Laboratory - Chemistry and Chemistry - challengeon 65-80-6083Ibozwcl [Mass/Vol] 2.8 g/dLLow3.4-5.0[facility] CenterALP [Catalytic activity/Vol] 70 U/T84-656MozjypssuTogus Va Medical CenterALT [Catalytic activity/Vol]17 U/L 14-59[facility] CenterAST [Catalytic activity/Vol]16 U/L15-37 [facility] CenterBilirubin [Mass/Vol]0.2 mg/dL0.2-1.0[facility] CenterBilirubin.direct [Mass/Vol]0.1 mg/dL0.0-0.2FC[facility] HospitalCalcium [Mass/Vol]9.4 mg/dL8.5-10.1FC[facility] HospitalChloride [Moles/Vol]98 mmol/O60-257TghnyjsmvTogus Va Medical CenterCO2 [Moles/Vol]49.3 mmol/LHigh21.0-32.0[facility] Creatinine [Mass/Vol]1.01 mg/dL0.55-1.02[facility] GFR/1.73 sq M.predicted MDRD (S/P/Bld) [Vol rate/Area]mL/min/{1.73_m2}>=60 mL/min/1.[address]m [address] [place], [place] [address]Glucose [Mass/Vol]134 mg/dLHigh 74-106[facility] CenterNatriuretic peptide B (Bld) [Mass/Vol] 483.0 pg/mL<=1800.0[facility] CenterPotassium [Moles/Vol]4.0 mmol/L3.5-5.1FC[facility] HospitalProtein [Mass/Vol]7.6 g/dL6.4-8.2 [facility] Hospitalodium [Moles/Vol]147 mmol/XNkep327-165 [facility] CenterUrea nitrogen [Mass/Vol]21.0 mg/dLHigh7.0-18.0 [facility] CenterUrea nitrogen/Creatinine [Mass ratio]20.8 mg/mg [facility] CenterLaboratory - Hematology and Cell countson 87-15-5863Ezzluaum granulocytes/100 WBC (Bld)1.2 %High0.0-0.5FCleveland [facility] Medina HospitalLeukocytes [#/volume] corrected for nucleated erythrocytes in Blood by Automated counon 44-95-1109BRA corrected for nucl RBC Auto (Bld) [#/Vol]Leukocytes [#/volume] corrected for nucleated erythrocytes in Blood by Automated coun4.0-11.0[facility] CenterLymphocytes Auto (Bld) [#/Vol]on 76-90-1198Hmufhofxevv (Bld) [#/Vol]Lymphocytes [#/volume] in Blood by Automated countLow1.2-3.8[facility] CenterLymphocytes/100 WBC Auto (Bld)on 44-43-4642Unckmgifghm/100 WBC (Bld)Lymphocytes/100 leukocytes in Blood by Automated qmaqzVnu41.5-60.0[facility] CenterMCH Auto (RBC) [Entitic mass]on 80-21-0241XEA (RBC) [Entitic mass]MCH [Entitic mass] by Automated count26.7-34.0[facility] CenterMCHC Auto (RBC) [Mass/Vol]on 59-33-3772THFS (RBC) [Mass/Vol]MCHC [Mass/volume] by Automated cfnelFxf41.9-35.2FCleveland Clinic Medina HospitalMCV Auto (RBC) [Entitic vol]on 09-85-3858JQV (RBC) [Entitic vol]MCV [Entitic volume] by Automated countHigh 81.0-99.0[facility] CenterMonocytes Auto (Bld) [#/Vol]on 16-81-3916Przmawxeu (Bld) [#/Vol]Automated blood monocyte count0.3-0.8[facility] CenterMonocytes/100 WBC Auto (Bld)on 64-06-2110Ihmizdhrp/100 WBC (Bld)Automated monocyte %1.7-12.0[facility] Neutrophils Auto (Bld) [#/Vol]on 54-61-4562Ulfjlkedzny (Bld) [#/Vol]Neutrophils [#/volume] in Blood by Automated countHigh1.4-6.5FCleveland Clinic Medina HospitalNeutrophils/100 WBC Auto (Bld)on 40-88-2462Haycgeyymws/100 WBC (Bld) Automated neutrophil %High43.0-75.0[facility] CenterNo Panel Informationon 74-53-2168Mllonxctrnv # (Auto)0.0 10 3/uL0.0-0.7FCleveland Clinic Medina HospitalImmature Granulocyte # (Auto)0.12 10 3/uLHigh0.00-0.03[facility] CenterTroponin I High Robufjszeyn03.8 pg/mL4.0-51.3FCleveland Clinic Medina HospitalComment on above:CUT-OFF POINTS HAVE BEEN ESTABLISHED [...] CLINICAL INFORMATION.Venous Blood Partial Pressure CO285.6 mm[Hg]Critically high40.0-52.0[facility] Medical CenterComment on above:RESULTS CALLED TO BRENDA NUNEZ RN at 0539 Venous Blood pH7.3857.330-7.430[facility] Medical CenterPlatelet mean volume Auto (Bld) [Entitic vol]on 85-89-5559Hesekies mean volume (Bld) [Entitic vol]Platelet mean volume [Entitic volume] in Blood by Automated countLow9.5-13.5 [facility] CenterPlatelets Auto (Bld) [#/Vol]on 10-29-2024 Platelets (Bld) [#/Vol]Platelets [#/volume] in Blood by Automated jajzn252-144 [facility] CenterRBC Auto (Bld) [#/Vol]on 56-01-8904OTP (Bld) [#/Vol]Erythrocytes [#/volume] in Blood by Automated countLow4.20-5.40[facility] Hospitalerum or plasma albumin/globulin mass ratioon 10-29-2024 Albumin/Globulin [Mass ratio]Serum or plasma albumin/globulin mass ratio [facility] Hospitalerum or plasma anion gap determinationon 57-65-7554Kmglg gap [Moles/Vol]Serum or plasma anion gap determinationTogus Va Medical CenterBasophils/100 WBC Manual cnt (Bld)on 10-28-2024 Basophils/100 WBC (Bld)Basophils/100 leukocytes in Blood by Manual countLow 0.2-2.0[facility] CenterBlood Cultureon 52-01-4010Orhscchi identified Cx Nom (Bld)Gram Stain Gram Positive [...] TO ALL B-LACTAM DRUGS. PERFORMED BY: [facility] [address] [id number] PATHOLOGIST DIRECTOR OF DISTANCE LEARNING SAPPHIRE MCCULLOUGH M.D.NormalThe Psychiatric Hospital Physician GroupComment on above: Performed By: #### CUBLD #### [facility] [address] [id number] USAEosinophils/100 WBC Manual cnt (Bld)on 10-28-2024 Eosinophils/100 WBC (Bld)Eosinophils/100 leukocytes in Blood by Manual countLow 0.9-7.0[facility] CenterErythrocyte distribution width Auto (RBC) [Ratio]on 24-46-2988Kpirzmzmyrv distribution width (RBC) [Ratio] Erythrocyte distribution width [Ratio] by Automated count11.0-15.0[facility] CenterEstimated glomerular filtration rate (GFR) non- Americanon 54-14-5165RHT/1.73 sq M.predicted among non-blacks MDRD (S/P/Bld) [Vol rate/Area]Estimated glomerular filtration rate (GFR) non- >=60 mL/min/1.73m 2FCleveland Clinic Medina HospitalHematocrit Auto (Bld) [Volume fraction]on 55-07-7804Wfapkdfrra (Bld) [Volume fraction]Hematocrit [Volume Fraction] of Blood by Automated raankFst72.0-48.0[facility] CenterHemoglobin [Mass/volume] in Bloodon 39-64-9810Znfmhvqzmw (Bld) [Mass/Vol]Hemoglobin [Mass/volume] in EycwpAdx96.0-16.0[facility] CenterLaboratory - Chemistry and Chemistry - challengeon 39-23-2705XXQ9 (Bld) [Moles/Vol]51.0 mmol/LHigh22.0-26.0[facility] Bilirubin Ql (U)NegativeNEGATIVETogus Va Medical CenterGlucose (U) [Mass/Vol]NegativeNEGATIVETogus Va Medical CenterKetones Ql (U) NegativeNEGATIVETogus Va Medical CenterpH (U)8.0 [pH]5.0-9.0[facility] Hospitalpecific gravity (U) [Rel density]1.0151.005-1.025 [facility] CenterUrobilinogen Qn (U)0.2 {Cecil'U}/dL0.2-1.0 [facility] CenterNatriuretic peptide B (Bld) [Mass/Vol]425.0 pg/mL<=1800.0[facility] CenterCalcium [Mass/Vol]9.4 mg/dL 8.5-10.1FCleveland Clinic Medina HospitalChloride [Moles/Vol]100 mmol/L98-107 [facility] CenterCO2 [Moles/Vol]44.6 mmol/LHigh21.0-32.0 [facility] CenterCreatinine [Mass/Vol]0.89 mg/dL0.55-1.02 [facility] CenterGFR/1.73 sq M.predicted MDRD (S/P/Bld) [Vol rate/Area]mL/min/{1.73_m2}>=60 mL/min/1.73m 2FCleveland Clinic Medina Hospital Glucose [Mass/Vol]132 mg/uTZprs12-152ZlefqburzTogus Va Medical CenterLactate [Moles/Vol]0.8 mmol/L0.4-2.0[facility] CenterPotassium [Moles/Vol]3.8 mmol/L3.5-5.1FSouthview Medical Centerodium [Moles/Vol] 146 mmol/NAqit587-111QjshnczhgTogus Va Medical CenterUrea nitrogen [Mass/Vol] 20.0 mg/dLHigh7.0-18.0[facility] CenterUrea nitrogen/Creatinine [Mass ratio]22.5 mg/mgTogus Va Medical CenterLaboratory - Hematology and Cell countson 40-79-1253Mjhflwowkpe/100 WBC (Bld)8.0 %Low20.5-60.0[facility] CenterMonocytes/100 WBC (Bld)8.0 %1.7-12.0[facility] CenterLaboratory - Microbiology and Antimicrobial susceptibilityon 62-09-2086TVUP-CoV-2 (COVID-19) RNA JOSE A+probe Ql (Unsp spec)PositiveAbnormal NEGATIVETogus Va Medical CenterComment on above:This test has not been FDA [...] is revoked sooner. Laboratory - Specimen informationon 54-96-2425Bgrxaodicf (U)CLEARCLEARFCleveland Clinic Medina HospitalColor (U)LT. YELLOWYELLOWTogus Va Medical CenterLaboratory - Urinalysison 53-54-5174Hehpfejqg esterase Test strip Ql (U) NegativeNEGATIVETogus Va Medical CenterMucus Ql (Urine sed)NONE SEEN NONE SEENTogus Va Medical CenterNitrite Ql (U)NegativeNEGATIVE [facility] CenterProtein Ql (U)NegativeNEG/TRACETogus Va Medical CenterLeukocytes [#/volume] corrected for nucleated erythrocytes in Blood by Automated counon 50-40-3330WWB corrected for nucl RBC Auto (Bld) [#/Vol]Leukocytes [#/volume] corrected for nucleated erythrocytes in Blood by Automated counHigh4.0-11.0[facility] HospitalH Auto (RBC) [Entitic mass]on 24-85-1775SIV (RBC) [Entitic mass]MCH [Entitic mass] by Automated count26.7-34.0C[facility] Clinic Fairview HospitalHC Auto (RBC) [Mass/Vol]on 51-61-9565NPBL (RBC) [Mass/Vol]MCHC [Mass/volume] by Automated count29.9-35.2FMagruder HospitalV Auto (RBC) [Entitic vol]on 53-23-3585GYR (RBC) [Entitic vol]MCV [Entitic volume] by Automated countHigh 81.0-99.0[facility] CenterNo Panel Informationon 01-87-4226Tuwxt TestPositivePOSITIVETogus Va Medical CenterArterial Blood Base Excess 25.6 mmol/LHigh<2.0-2.0[facility] CenterArterial Blood Oxygen Wvajtsjwrj81.1 %[facility] Medical CenterArterial Blood Partial Pressure CO289.4 mm[Hg]Critically high35.0-45.0[facility] Medical CenterComment on above:RESULTS CALLED TO YADIRA BERMEO(RN) IN ICUArterial Blood Partial Pressure O281.6 mm[Hg]80.0-100.0[facility] Medical CenterArterial Blood pH7.3647.350-7.450[facility] CenterBlood Gas Mode BiPAP16/8 [facility] CenterBlood Gas Sample SiteLEFT RADIALTogus Va Medical CenterBlood Gas Set Respiration Pyfn76CfstkfrzvTogus Va Medical CenterFiO240 %[facility] CenterOxygen Delivery Device BIPAPTogus Va Medical CenterUrine BacteriaNONE SEEN #/HPFNONE SEEN [facility] CenterUrine Culture ReflexedNOTogus Va Medical CenterUrine Occult BloodNegativeNEGTrinity Health System West CampusUrine Other CastsNONE SEEN #/LPFNONE [facility] Urine Other CrystalsNone Seen #/HPFNone [facility] Urine RBCNONE SEEN #/HPF0-2FCleveland Clinic Medina HospitalUrine Squamous Epithelial CellsRARE #/LPFNONE/RARETogus Va Medical CenterUrine WBC NONE SEEN #/HPFNONE [facility] HospitalBlood Gas Liter Flow6 [facility] CenterAbsolute Basophils (Manual)0.00 10 3/uL 0.00-0.10[facility] CenterBedside Influenza Type A Antigen NegativeTogus Va Medical CenterComment on above:Negative for Flu A protein antigen. Infection due to Flu Acannot be ruled out. Flu A antigen in the sample may bebelow the detection limit of the test.Bedside Influenza Type B AntigenNegativeTogus Va Medical CenterComment on above:Negative for Flu B protein antigen. Infection due to Flu Bcannot be ruled out. Flu B antigen in thesample may bebelow the detection limit of the test.Eosinophils # (Manual) 0.00 10 3/uL0.00-0.70[facility] Medical CenterLymphocytes # (Manual)1.04 10 3/uLLow1.20-3.80[facility] CenterMonocytes # (Manual)1.04 10 3/uLHigh0.30-0.80[facility] Hospitalegmented Neutrophils # (Manual)10.92 10 3/uLHigh1.4-6.5FCleveland Clinic Medina HospitalTroponin I High Bjxxlcurprg06.3 pg/mL4.0-51.3FCleveland Clinic Medina HospitalComment on above: CUT-OFF POINTS HAVE BEEN [...] volume [Entitic volume] in Blood by Automated countLow9.5-13.5FCleveland Clinic Medina HospitalPlatelets Auto (Bld) [#/Vol]on 82-08-7457Yygfbwqnj (Bld) [#/Vol]Platelets [#/volume] in Blood by Automated -241DgmikdrzqTogus Va Medical CenterRBC Auto (Bld) [#/Vol]on 25-43-9873CIK (Bld) [#/Vol]Erythrocytes [#/volume] in Blood by Automated countLow4.20-5.40[facility] County Community Hospitalegmented neutrophils/100 WBC Manual cnt (Bld)on 84-82-1896Koyabkeim neutrophils/100 WBC (Bld)Manual blood segmented neutrophils/100 lgqfhycgdoEcyq48.0-75.0[facility] Community Hospitalerum or plasma anion gap determinationon 62-58-8108Jeolx gap [Moles/Vol]Serum or plasma anion gap determinationTogus Va Medical Center Vital Signs Date TimeVital SignValuePerforming JymwqsuasTvcrusko64-61-7202 09:30-0400 Diastolic blood znxyqhec26 mm[Hg]Paulina James MD Work Phone: 1(780)[address] [place], [place] 2385610-16-2025 09:30-0400 Heart rate87 /minPaulina James MD Work Phone: [phone])[address] [place], [place] 2385610-16-2025 09:30-0400 SaO2% (BldA) [Mass fraction]90 %Paulina James MD Work Phone: 1(419)[address] [place], [place] 2385610-16-2025 09:30-0400 Systolic blood mm[Hg]Paulina James MD Work Phone: 1(419)[address] [place], [place] 2385610-16-2025 09:23-0400 Body gikooh480.02 cmPaulina James MD Work Phone: 1(673)[address] [place], [place] 2385610-16-2025 09:23-0400 Body mass index (BMI) [Ratio]37.3 kg/m2IifdglPaulina James MD Work Phone: 1(571)[address] [place], [place] 2385610-16-2025 09:23-0400 Body qnuonq31.7 kgPaulina James MD Work Phone: 1(782)[address] [place], [place] 2385610-07-2025 14:22-0400 Diastolic blood znfwaxvk50 mm[Hg]Paulina James MD Work Phone: 1(419)[address] [place], [place] 2385610-07-2025 14:22-0400 Systolic blood xflfweax603 mm[Hg]Paulina James MD Work Phone: [phone])[address] [place], [place] 2385610-07-2025 14:15-0400 Body veciwr826.02 cmPaulina James MD Work Phone: 1(414)[address] [place], [place] 2385610-07-2025 14:15-0400 Body mass index (BMI) [Ratio]37.5 kg/f1OlfflmPaulina James MD Work Phone: 1(618)[address] [place], [place] 2385610-07-2025 14:15-0400 Body qfxqxdwonhq37.6 [degF]Paulina James MD Work Phone: 1(753)[address] [place], [place] 2385610-07-2025 14:15-0400 Body ntpwru05.16 kgPaulina aJmes MD Work Phone: 1(570)[address] [place], [place] 2385610-07-2025 14:15-0400 Heart rate88 /Gm James MD Work Phone: 1(029)[address] [place], [place] 2385610-07-2025 14:15-0400 SaO2% (BldA) [Mass fraction]84 %Paulina James MD Work Phone: 1(018)[address] [place], [place] 2385607-01-2025 09:30-0400 Body .02 cmPaulina James MD Work Phone: 1(226)[address] [place], [place] 2385607-01-2025 09:30-0400 Body mass index (BMI) [Ratio]36.8 kg/o6MljezgPaulina James MD Work Phone: 1(653)[address] [place], [place] 2385607-01-2025 09:30-0400 Body enjgcm24.34 kgPaulina James MD Work Phone: 1(184)[address] [place], [place] 2385607-01-2025 09:30-0400 Diastolic blood eqjnqhlq71 mm[Hg]Paulina James MD Work Phone: 1(224)[address] [place], [place] 2385607-01-2025 09:30-0400 Heart rate88 /Gm James MD Work Phone: 1(910)[address] [place], [place] 2385607-01-2025 09:30-0400 Respiratory rate14 /Gm James MD Work Phone: 1(307)[address] [place], [place] 2385607-01-2025 09:30-0400 SaO2% (BldA) [Mass fraction]91 %Paulina James MD Work Phone: 1(610)[address] [place], [place] 2385607-01-2025 09:30-0400 Systolic blood hybkywfo914 mm[Hg]Paulina James MD Work Phone: 1(769)[address] [place], [place] 2385601-13-2025 14:03-0500 Body rsikko516.02 cmTogus Va Medical Center01-13-2025 14:03-0500Body mass index (BMI) [Ratio]36.3 kg/w0VovmxqtleTogus Va Medical Center01-13-2025 14:03-0500Body fxrgjtoihij23.2 [degF][facility]01-13-2025 14:03-0500Body luhipt21.98 kgTogus Va Medical Center01-13-2025 14:03-0500Diastolic blood jvuivrjd32 mm[Hg][facility] 11-08-2024 14:03-0500Heart rate93 /minTogus Va Medical Center 11-08-2024 14:034971YjB3% (BldA) [Mass fraction]89 %[facility]01-13-2025 14:03-0500Systolic blood envzpzxg128 mm[Hg][facility] Encounters Encounter DateEncounter TypeCare ProviderFacilityStart: 08-11-2025 End: 34-59-6693rnwymdbfaiQjugkb E Braun MD Work Phone: [facility] Work Phone: Start: 08-11-2025 End: 03-18-8535Bnczsjy encounter procedurePaulina James MD-[facility] Work Phone: Start: 69-30-8656Sua-patient / Non-visitCatherine Roger GIL-[facility] Work Phone: Start: 08-02-2025 End: 47-61-8942ggweczhmxuIkwcfu E Braun MD Work Phone: [facility] Work Phone: Start: 08-02-2025 End: 82-51-4808Fnertio encounter procedurePaulina James MD-[facility] Work Phone: Start: 06-14-2037Kbdghit encounter procedurePaulina James MD Work Phone: [facility] Hospitaltart: 04-26-2025 End: 56-72-2847ymolbbvtbgTvwqdr E Braun MD Work Phone: [facility] Work Phone: Start: 04-26-2025 End: 27-31-6858Jzkybrl encounter procedurePaulina James MD-[facility] Work Phone: Start: 11-08-2024 End: 81-43-0596vyaeaeccgcVrahgvqchMetroHealth [facility] Work Phone: Start: 11-08-2024 End: 48-81-9844Ucgeagd encounter procedurePsychiatric Hospital Physician Group-[facility] Work Phone: Start: 45-36-5628Dly-patient / Non-visitPsychiatric Hospital Physician Group-[facility] Work Phone: Start: 99-93-1256Pfs-patient / Non-visitPsychiatric Hospital Physician [facility] Work Phone: Start: 60-52-5203Tay-patient / Non-visitFirbon [facility] Work Phone: Start: 79-75-5589Ttr-patient / Non-visitPsychiatric Hospital Physician Group-[facility] Work Phone: Start: 10-28-2024 End: 25-86-2673qpfyjdewayFbbqruh D [facility] Work Phone: Start: 10-28-2024 End: 46-19-8303Ozroyqld ReferredKeegan [facility] LAB Path Spec [facility] HospStart: 42-41-3661Xsg-patient / Non-visitPsychiatric Hospital Physician Group-[facility] Work Phone: Start: 11-22-2022(Televisit) [facility] BashirOnslow Memorial Hospitaltart: 11-22-2022 End: 74-76-2583jkrwvjwqkaUaplkj Braun Other [place] [employer] Other Start: 07-23-2022 End: 43-00-3685fshkhzzxxlAQ HESHAM V WESTFacility:H1 Plan of Treatment DateCare ActivityDetailAuthorStart: 03-53-7192Teteuyz referralBellevue Hospital Work Phone: Start: 62-10-9663Dllavsvu identified in Blood by CultureBlood CultureMercer County Community Hospitaltart: 79-91-4467PpribcyiiTogus Va Medical CenterComprehensive metabolic 2000 panel - Serum or Plasma [facility] CenterPatient referralBellevue Hospital Work Phone: [facility] Payers DatePayer CategoryPayerPolicy [id number]-[id number] Health [id number] Social History DateTypeDetailFacilitySex Assigned At Simpli.fiWalkerton RemitDATA Other Start: 03-09-2024 End: 33-94-5551Cciicpz smoking status NHISEx-smoker (finding)[facility] Hospitaltart: 10-30-2024 End: 77-17-6929ZwcUimhyw (finding)[facility] Hospitaltart: 74-43-0468Klr Assigned At [facility] Evaluation note 11-22-2022 Note Date & IjjuDpcdEnhhiaep22-61-4284 Evaluation note* Encounter Date Diagnosis Assessment Notes Treatment Notes Treatment Clinical Notes Oct, COPD with exacerbation (ICD-10 - J44.1) Stefany understands to seek care through the ER if her symptoms worsen. She understands to contact Dr. Mireles if the cough continues. She states she is compliant with wearing her oxygen and using her controller and rescue medicines. [place] [employer] Other Clinical Note 07-23-2022 Note Date & XhbuCapvQtibpfcg08-15-2214 NotePROCEDURE: XR KNEE LT 4V or > [...] authenticated by: HESHAM HALE Date: 2022-07-23 17:59[facility] Evaluation note 11-21-2017 Note Date & NpnsLhejOblxejgc02-99-6130 Evaluation note* Diagnosis Onset Date Resolution Status Admit Date COPD (chronic obstructive pulmonary disease) Oct acuteOctober 2024 9:22amOxygen dependentacuteOctober 2024 9:22am [facility] Work Phone: Evaluation note Note Date & TypeNoteFacilityEvaluation noteNo assessment information available [facility] Work Phone: Evaluation note Note Date & TypeNoteFacilityEvaluation note* Diagnosis Onset Date Resolution Status Admit Date Essential (primary) hypertension acuteJuly 2024 10:07am [facility] Work Phone: Hospital Discharge instructions Note Date & TypeNoteFacilityHospital Discharge instructionsAmbulatory Orders* Referral to Pulmonology Time Frame: 08/11/25, Location: None Selected [facility] Work Phone: Reason for referral (narrative) Note Date & TypeNoteFacilityReason for referral (narrative)No reason for referral information availableBellevue Hospital Work Phone: Summary Purpose Family History [...] and content) DATE CREATED AUTHOR 07/29/2022 [facility] DATE CREATED AUTHOR AUTHOR'S ORGANIZ ATION 11/06/2024 [facility] REASON FOR VISIT (unrecogniz ed [...] BE BASED ON THE PRIMARY CLINICAL RECORDS. [facility] [employer] [facility]. provides no warranty or guarantee of the accuracy or completeness of information in this document.
== END 2025-10-25 10:59 | disposition home or self-care (01) ==
LOC: CARD 10:58
PROVIDERS: PCP Family Medicine; Visit Provider Internal Medicine
DX: J96.11 Chronic respiratory failure with hypoxia (principal)
CPT/HCPCS: 94618